=== PATIENT | male | born 1930 | race Hispanic/Latino ===

== ENCOUNTER 2017-02-12 12:43 | Inpatient (IN) | payer MEDICARE, BC ==
[2017-02-12 12:43] VITALS: BMI 29.9
--- NOTE | 2017-02-12 13:12 | ED PDOC ---
Arrival/HPI - General Chief Complaint: Medical Clearance Time Seen by Provider: 02/12/17 13:06 Historian: Patient, Family (Daughter, son) - History of Present Illness Narrative History of Present Illness (Text): 02/12/17 13:08 86 year old male, whose past medical history includes CAD, CABG x6, atrial fibrillation, hypertension, diabetes, and chronic kidney disease, who presents to the Emergency department accompanied by daughter for light-headedness prior to arrival. Patient states he began feeling light-headed and dizziness with tingling to his jaw earlier today while at home. Patient denies any chest pain, shoulder pain, shortness of breath, nausea, vomiting, or any other complaints. Daughter states she checked patient's heart rate while at home, noted it was 49 bpm. Time/Duration: Other (today) Symptom Onset: Gradual Symptom Course: Unchanged Activities at Onset: Rest, Light Context: Home Past Medical History - Provider Review Nursing Documentation Reviewed: Yes - Infectious Disease Hx of Infectious Diseases: None - Tetanus Immunization Tetanus Immunization: Up to Date - Cardiac Hx Hypertension: Yes Hx Pacemaker: No - Pulmonary Hx Chronic Obstructive Pulmonary Disease (COPD): Yes - Neurological Hx Paralysis: No - Endocrine/Metabolic Hx Diabetes Mellitus Type 2: Yes - Hematological/Oncological Hx Blood Transfusions: No Hx Blood Transfusion Reaction: No - Musculoskeletal/Rheumatological Hx Falls: No - Genitourinary/Gynecological Other/Comment: TURP - Psychiatric Hx Depression: No Hx Substance Use: No - Surgical History Hx Coronary Stent: Yes - Anesthesia Hx Anesthesia Reactions: No Hx Malignant Hyperthermia: No - Suicidal Assessment Feels Threatened In Home Enviroment: No Family/Social History - Physician Review Nursing Documentation Reviewed: Yes Family/Social History: Unknown Family HX Smoking Status: Former Smoker Hx Alcohol Use: No Hx Substance Use: No Hx Substance Use Treatment: No Allergies/Home Meds Allergies/Adverse Reactions: Allergies pentazocine Allergy (Verified 02/12/17 13:02) RASH Home Medications: Home Meds Medication Instructions Recorded Confirmed Omeprazole [PrilOSEC] 40 mg PO BID 11/07/13 02/12/17 Albuterol Sulfate [Proair Hfa] 1 puff INH PRN PRN 02/12/17 02/12/17 Aspirin [Ecotrin] 81 mg PO DAILY 02/12/17 02/12/17 Gabapentin [Neurontin] 100 mg PO BID 02/12/17 02/12/17 Hctz 12.5 12.5 mg PO MWF 02/12/17 02/12/17 Ranolazine [Ranexa] 500 mg PO BID 02/12/17 02/12/17 Tiotropium [Spiriva] 1 puff NEB DAILY 02/12/17 02/12/17 Vit B12 Daily 1 tab PO DAILY 02/12/17 02/12/17 metFORMIN [glucOPHAGE] 500 mg PO BID 02/12/17 02/12/17 Review of Systems - Physician Review All systems were reviewed & negative as marked: Yes - Review of Systems Constitutional: Normal. absent: Fevers Eyes: Normal ENT: Normal Respiratory: Normal. absent: SOB Cardiovascular: absent: Chest Pain Gastrointestinal: Normal. absent: Abdominal Pain, Diarrhea, Nausea, Vomiting Musculoskeletal: Normal. absent: Arthralgias, Back Pain, Neck Pain Neurological: Dizziness, Other (+light-headedness) Physical Exam - Physical Exam Narrative Physical Exam (Text): Constitutional: No acute distress. Head: Normocephalic. Atraumatic. Eyes: PERRL. ENT: Moist mucous membranes. Neck: Supple. Cardiovascular: Bradycardic. Chest: No tenderness. Respiratory: Clear to auscultation bilaterally. GI: Soft. Nontender. Nondistended. Back: No CVA tenderness. Musculoskeletal: No tenderness or swelling of extremities. Skin: No rash. Neurologic: Alert, no focal deficit. Vital Signs Reviewed: Yes Vital Signs Temp Pulse Resp BP Pulse Ox 02/12/17 16:01 36 L 17 155/77 H 02/12/17 13:37 32 L 131/55 L 02/12/17 13:06 97.6 F 38 L 20 157/84 H 98 Temperature: Afebrile Blood Pressure: Normal Pulse: Bradycardic Respiratory Rate: Normal Appearance: Positive for: Well-Appearing, Non-Toxic, Comfortable Pain Distress: None Mental Status: Positive for: Alert and Oriented X 3 Medical Decision Making ED Course and Treatment: 02/12/17 13:08 Impression: 86 year old male complaining of dizziness/light-headedness and jaw tingling. Plan: -- EKG -- Chest X-ray -- Labs, cardiac enzymes -- Reassess and disposition Prior Visits: Notes and results from previous visits were reviewed. Patient was last seen in the Emergency department on Progress Notes: Reviewed EKG, ventricular rate at [address] elevations. RBBB. Compared to previous EKG in 2013, which showed sinus rhythm with 1st degree AV block. Pt seen on arrival, noted to be bradycardic in 40s/30s. Paged Dr[address] Richard. 02/12/17 13:[address] Richard, national sales executive, who is aware and agrees with plan. Recommends pt be started on Dopamine and hold beta blockers. Pacer pads placed. Dr. Mccracken accepts patient to his service. Patient accepted to ICU. - Lab Interpretations Lab Results: 02/12/17 13:00 02/12/17 13:00 Lab Results 02/12/17 14:00: Blood Type Confirm O POSITIVE 02/12/17 13:25: Blood Type O POSITIVE, Antibody Screen Negative, BBK History Checked No verified bt 02/12/17 13:00: Sodium 140, Potassium 4.5, Chloride 105, Carbon Dioxide 23, Anion Gap 17, BUN 28 H, Creatinine 1.3, Est GFR ( Amer) > 60, Est GFR ( Non-Af Amer) 52, Random Glucose 147 H, Calcium 9.0, Total Bilirubin 0.7, AST 28 , ALT 28, Alkaline Phosphatase 58, Total Creatine Kinase 147, Troponin I < 0.01 , Total Protein 6.6, Albumin 3.8, Globulin 2.8, Albumin/Globulin Ratio 1.4 02/12/17 13:00: PT 11.4, INR 1.06, APTT 28.8 02/12/17 13:00: WBC 6.3, RBC 4.23, Hgb 13.1 L, Hct 38.6 L, MCV 91.3, MCH 31.0, MCHC 33.9, RDW 14.6 H, Plt Count 147, MPV 10.1, Gran % 69.6 H, Lymph % (Auto) 20.5 L, [place] % (Auto) 8.3 H, Eos % (Auto) 1.3 L, Baso % (Auto) 0.3, Gran # 4.35 , Lymph # 1.3, [place] # 0.5, Eos # 0.1, Baso # 0.02 I have reviewed the lab results: Yes - RAD Interpretation Radiology Orders: 02/12/17 13:14 CHEST PORTABLE [RAD] Stat - EKG Interpretation Interpreted by ED Physician: Yes Type: 12 lead EKG - Medication Orders Current Medication Orders: Dopamine HCl/Dextrose (Dopamine 400mg/250ml D5w) 400 mg in 250 mls @ 9.82 mls/ hr IV .Q24H PRN; Protocol; 2.5 MCG/KG/MIN PRN Reason: TITRATE PER MD ORDER Last Admin: 02/12/17 16:00 Dose: 5 mcg/kg/min, 19.646 mls/hr Discontinued Medications Dopamine HCl/Dextrose (Dopamine 400mg/250ml D5w) Confirm Administered Dose 400 mg in 250 mls @ ud IV .STK-MED ONE Stop: 02/12/17 13:23 Last Admin: 02/12/17 13:37 Dose: 2.5 mg - Scribe Statement The provider has reviewed the documentation as recorded by the Mgibchristine Boss All medical record entries made by the Mgibchristine were at my direction and personally dictated by me. I have reviewed the chart and agree that the record accurately reflects my personal performance of the history, physical exam, medical decision making, and the department course for this patient. I have also personally directed, reviewed, and agree with the discharge instructions and disposition. Disposition/Present on Arrival - Present on Arrival Any Indicators Present on Arrival: No History of DVT/PE: No History of Uncontrolled Diabetes: No Urinary Catheter: No History of Decub. Ulcer: No History Surgical Site Infection Following: None - Disposition Have Diagnosis and Disposition been Completed?: Yes Diagnosis: Symptomatic bradycardia Disposition: HOSPITALIZED Disposition Time: 13:55 Patient Plan: Admission, ICU Condition: GUARDED
[2017-02-12] MEDS ORDERED: DOPamine 400mg/250ml D5W 400 MG/250 ML BAG IV ONE (13:22)
[2017-02-12 13:27] LABS: BASO # 0.02 K/mm3 (0.0-2.0); BASO % 0.3 % (0.0-3.0); EOS # 0.1 (0.0-0.7); EOS % 1.3 % (1.5-5.0); GRAN # 4.35 (1.4-6.5); GRAN % 69.6 % (50.0-68.0); HEMOGLOBIN 13.1 gm/dL (14.0-18.0); LYMPH # 1.3 (1.2-3.4); LYMPH % 20.5 % (22.0-35.0); MEAN CELL VOLUME 91.3 fL (80.0-105.0); MEAN CORPUSCULAR HGB CONC 33.9 g/dl (31.0-37.0); MEAN PLATELET VOLUME 10.1 fl (7.0-11.0); MONO # 0.5 (0.1-0.6); MONO % 8.3 % (1.0-6.0); PLATELET COUNT 147 10^3/uL (120.0-450.0); RBC 4.23 10^6/uL (3.5-6.1); RED CELL DISTRIBUTION WIDTH 14.6 % (11.5-14.5); WHITE BLOOD COUNT 6.3 10^3/ul (4.5-11.0)
[2017-02-12] MEDS: DOPamine 400mg/250ml D5W 400 MG/250 ML BAG IV PRN ×2 (13:37→16:00)
[2017-02-12 13:39] LABS: ALB/GLOB RATIO 1.4 (1.1-1.8); ALBUMIN 3.8 g/dL (3.0-4.8); ALT/SGPT 28 U/L (7-56); AST/SGOT 28 U/L (15-59); BLOOD UREA NITROGEN 28 mg/dL (7-21); GFR AFRICAN-AMERICAN > 60; GFR NON-AFRICAN AMERICAN 52; INR 1.06 (0.93-1.08); PARTIAL THROMBOPLASTIN TIME 28.8 Seconds (23.7-30.8); PROTHROMBIN TIME 11.4 Seconds (9.9-11.8)
[2017-02-12 13:54] LABS: TROPONIN I < 0.01 ng/mL
--- NOTE | 2017-02-12 14:58 | RAD ---
HISTORY: dizziness COMPARISON: 08/13/2016 FINDINGS: LUNGS: No active pulmonary disease. PLEURA: No significant pleural effusion identified, no pneumothorax apparent. CARDIOVASCULAR: Moderate cardiomegaly. OSSEOUS STRUCTURES: Sternal wires VISUALIZED UPPER ABDOMEN: Normal. OTHER FINDINGS: None. IMPRESSION: No active disease.
--- NOTE | 2017-02-12 15:23 | CARD ---
APPROVED REPORT EKG Measurement Heart [id number] <Conclusion> Atrial Flutter Right bundle branch block Left anterior fascicular block Bifascicular block STTW changes c/w ischemia Electrical artifact present
--- NOTE | 2017-02-12 17:48 | CP.PCM.CON ---
History of Present Illness - History of Present Illness History of Present Illness: Reason for Consult:.... Bradicardia ( A flutter with Varable Block and Ventricular escape) 86 em[place] old male with PMhx of CAD S/o CABG December 2004 times 5 vessel,HTN, T2DM came to EF with C/o uneasiness ( dizzyness) found to be bradmitzirdia HR30's denies Chest pain, SOB. PMHx CAD, CABG 12/2004 times % vessel S/p CAth.. 01/2007.. [place] triple Vessel CAD patent MCKEON to LAD, Seq SVG to D1,OM1 and LPDA, SVG to Ramus has 70% stenosis not suitable for PCI. Preseved LV FX....>> Medical treatment T2 DM HTN. Hyperlipidemia PAF , S/p TIFFANY Cardioversion in 12/2011 Recent Cardiac W/u ECHO 01/2016 LVEF-60-65% Dilated LA/RA/RVModerate AR Moderate TR/PI Mild MR RVSP-55 mmof Hg. Stress test 03/2015... Negative for Ischemia. EF-54% Review of Systems - Review of Systems Systems not reviewed;Unavailable: Acuity of Condition - Constitutional Constitutional: As Per HPI - EENT Eyes: As Per HPI - Cardiovascular Cardiovascular: As Per HPI, Lightheadedness Additional comments: Dizzyness and unstady gait - Respiratory Respiratory: As Per HPI - Gastrointestinal Gastrointestinal: As Per HPI - Reproductive: Male Reproductive:Male: As Per HPI - Musculoskeletal Musculoskeletal: As Per HPI - Integumentary Integumentary: As Per HPI - Neurological Neurological: Dizziness - Psychiatric Psychiatric: As Per HPI - Endocrine Endocrine: As Per HPI Past Patient History - Infectious Disease Hx of Infectious Diseases: None - Tetanus Immunizations Tetanus Immunization: Up to Date - Past Social History Smoking Status: Former Smoker - CARDIAC Hx Hypertension: Yes Hx Pacemaker: No - PULMONARY Hx Chronic Obstructive Pulmonary Disease (COPD): Yes - NEUROLOGICAL Hx Paralysis: No - ENDOCRINE/METABOLIC Hx Diabetes Mellitus Type 2: Yes - HEMATOLOGICAL/ONCOLOGICAL Hx Blood Transfusions: No Hx Blood Transfusion Reaction: No - MUSCULOSKELETAL/RHEUMATOLOGICAL Hx Falls: No - GENITOURINARY/GYNECOLOGICAL Other/Comment: TURP - PSYCHIATRIC Hx Depression: No Hx Substance Use: No - SURGICAL HISTORY Hx Coronary Stent: Yes - ANESTHESIA Hx Anesthesia Reactions: No Hx Malignant Hyperthermia: No Meds Allergies/Adverse Reactions: Allergies Allergy/AdvReac Type Severity Reaction Status Date / Time pentazocine Allergy RASH Verified 02/12/17 13:02 - Medications Medications: Current Medications Dopamine HCl/Dextrose (Dopamine 400mg/250ml D5w) 400 mg in 250 mls @ 9.82 mls/ hr IV .Q24H PRN; Protocol; 2.5 MCG/KG/MIN PRN Reason: TITRATE PER MD ORDER Last Admin: 02/12/17 16:00 Dose: 5 mcg/kg/min, 19.646 mls/hr Physical Exam - Head Exam Head Exam: ATRAUMATIC - Eye Exam Eye Exam: Conjunctival injection - ENT Exam ENT Exam: Mucous Membranes Dry - Neck Exam Neck exam: Positive for: Full Rom - Respiratory Exam Respiratory Exam: Accessory Muscle Use - Cardiovascular Exam Cardiovascular Exam: Bradycardia - GI/Abdominal Exam GI & Abdominal Exam: Soft - Rectal Exam Rectal Exam: Deferred - Extremities Exam Extremities exam: Positive for: full ROM Results - Vital Signs Recent Vital Signs: Last Vital Signs Temp 97.6 F 02/12/17 13:06 Pulse 56 L 02/12/17 17:29 Resp 19 02/12/17 17:29 BP 161/81 H 02/12/17 17:29 Pulse Ox 94 L 02/12/17 17:29 - Labs Result Diagrams: 02/12/17 13:00 02/12/17 13:00 Assessment & Plan - Assessment and Plan (Free Text) Assessment: 86 year old male with CAG, admitted with bradicardia A flutter with Ventricular escape rate30"s, hold good BP A flutter with variable block, and Ventricular Escape Rate 30"s Pt had David meehan in morning CAD, CABG. 12/2004 Negative Stress test in 03/2015 Hx of Afib once in 2011, S/p TIFFANY cardioversion COPD HTN Hyperlipidemia Plan: Low dose Dopamine to wear effect of Beta blockade lovenox hydrallazine or non rate limiting Ca Channel bloker Possible PPM if heart rate does not improve possible PPM on Wednesday Spoke to Family and pt. - Date & Time Date: 02/12/17 Time: 03:30
[2017-02-12] MEDS ORDERED: Albuterol HFA 90 mcg/actuation (8 g) INH PRN (17:49)
[2017-02-12] MEDS ORDERED: DOPamine 400mg/250ml D5W 400 MG/250 ML BAG IV PRN ×2 (17:50→17:59)
--- NOTE | 2017-02-12 17:53 | CP.PCM.CON ---
<Iraida Shah - Last Filed: 02/12/17 18:01> History of Present Illness - History of Present Illness History of Present Illness: PGY-1 ICU consult note 86 yo male with PMH of CAD, CABG, A. fib, HTN, DM, COPD, and CKD presented to ED with dizziness. Patient states that over the past week he was feeling unsteady and general weakness. He states that this morning he began to feel dizzy and came to ED. He also reports jaw tingling but denies chest pain. He denies SOB, fever, chills, n/v/d/c. PMH: CAD, CABG, A. fib, HTN, DM, COPD, and CKD PSH: CABG SH: former smoker, deneis current ETOH use, denies illicit drug use allergy: pentazocine Review of Systems - Constitutional Constitutional: Fatigue. absent: Chills, Fever, Headache - EENT Eyes: absent: Blurred Vision Nose/Mouth/Throat: absent: Nasal Congestion, Nasal Discharge, Sore Throat - Cardiovascular Cardiovascular: Lightheadedness, Slow Heart Rate. absent: Chest Pain, Diaphoresis, Palpitations - Respiratory Respiratory: absent: Cough, Dyspnea, Hemoptysis, Dyspnea on Exertion - Gastrointestinal Gastrointestinal: absent: Abdominal Pain, Constipation, Diarrhea, Nausea, Vomiting - Genitourinary Genitourinary: absent: Change in Urinary Stream, Difficulty Urinating - Musculoskeletal Musculoskeletal: absent: Arthralgias, Back Pain, Muscle Weakness, Myalgias - Integumentary Integumentary: absent: Rash, Sores, Swelling - Neurological Neurological: Dizziness. absent: Confusion, Headaches, Loss of Vision - Hematologic/Lymphatic Hematologic: absent: Easy Bleeding, Easy Bruising Past Patient History - Infectious Disease Hx of Infectious Diseases: None - Tetanus Immunizations Tetanus Immunization: Up to Date - Past Social History Smoking Status: Former Smoker - CARDIAC Hx Hypertension: Yes Hx Pacemaker: No - PULMONARY Hx Chronic Obstructive Pulmonary Disease (COPD): Yes - NEUROLOGICAL Hx Paralysis: No - ENDOCRINE/METABOLIC Hx Diabetes Mellitus Type 2: Yes - HEMATOLOGICAL/ONCOLOGICAL Hx Blood Transfusions: No Hx Blood Transfusion Reaction: No - MUSCULOSKELETAL/RHEUMATOLOGICAL Hx Falls: No - GENITOURINARY/GYNECOLOGICAL Other/Comment: TURP - PSYCHIATRIC Hx Depression: No Hx Substance Use: No - SURGICAL HISTORY Hx Coronary Stent: Yes - ANESTHESIA Hx Anesthesia Reactions: No Hx Malignant Hyperthermia: No Meds Allergies/Adverse Reactions: Allergies Allergy/AdvReac Type Severity Reaction Status Date / Time pentazocine Allergy RASH Verified 02/12/17 13:02 - Medications Medications: Current Medications Albuterol (Ventolin Hfa 90 Mcg/Actuation (8 G)) 1 puff INH PRN PRN PRN Reason: Shortness of Breath Aspirin (Ecotrin) 81 mg PO DAILY ANAHY Gabapentin (Neurontin) 100 mg PO BID ANAHY PRN Reason: Protocol Dopamine HCl/Dextrose (Dopamine 400mg/250ml D5w) 400 mg in 250 mls @ 9.82 mls/ hr IV .Q24H PRN; Protocol; 2.5 MCG/KG/MIN PRN Reason: TITRATE PER MD ORDER Last Admin: 02/12/17 16:00 Dose: 5 mcg/kg/min, 19.646 mls/hr Metformin HCl (Glucophage) 500 mg PO BID ANAHY Non-Formulary Medication (Hctz 12.5) 12.5 mg PO MWF ANAHY Non-Formulary Medication (Ranolazine [Ranexa]) 500 mg PO BID ANAHY Physical Exam - Constitutional Appears: Well, No Acute Distress - Head Exam Head Exam: ATRAUMATIC, NORMOCEPHALIC - Eye Exam Eye Exam: Normal appearance, PERRL - ENT Exam ENT Exam: Mucous Membranes Moist - Respiratory Exam Respiratory Exam: Clear to Auscultation Bilateral, NORMAL BREATHING PATTERN. absent: Chest Wall Tenderness, Rales, Rhonchi, Wheezes, Respiratory Distress - Cardiovascular Exam Cardiovascular Exam: Bradycardia, Irregular Rhythm - GI/Abdominal Exam GI & Abdominal Exam: Normal Bowel Sounds, Soft. absent: Distended, Firm, Guarding - Extremities Exam Extremities exam: Positive for: normal inspection. Negative for: pedal edema - Neurological Exam Neurological exam: Alert, Oriented x3 Results - Vital Signs Recent Vital Signs: Last Vital Signs Temp 97.6 F 02/12/17 13:06 Pulse 56 L 02/12/17 17:29 Resp 19 02/12/17 17:29 BP 161/81 H 02/12/17 17:29 Pulse Ox 94 L 02/12/17 17:29 - Labs Result Diagrams: 02/12/17 13:00 02/12/17 13:00 Assessment & Plan - Assessment and Plan (Free Text) Assessment: 86 yo male with PMH of CAD, CABG, A. fib, HTN, DM, COPD, and CKD presented with bradycardia, a. flutter, variable block. Plan: Neuro: Patient is alert and oriented cardiovascular: pt is currently on dopamine drip per cardiology. EKG showed a. flutter with variable block. Trop neg x1. heart rate has improved. Cardiology following. cont asa, Hctz, start amlodipine, lovenox, hydralazine prn. Echo ordered. maintain MAP>65. SCDs for DVT prophalaxis. pulm: Patient is Saterating well. Maintain SaO2>90%. Start albuterol renal: stable, monitor electrolytes, will replace as needed. cont to monitor. ID: Afebrile without leukocytosis. Continue to monitor. <Israel Lopez - Last Filed: 02/12/17 18:31> Meds - Medications Medications: Current Medications Albuterol Sulfate (Albuterol 0.083% Inhal Ros (2.5 Mg/3 Ml) Ud) 2.5 mg IH [id number] PRN PRN Reason: Shortness of Breath Amlodipine Besylate (Norvasc) 10 mg PO DAILY [facility] Aspirin (Ecotrin) 81 mg PO DAILY [facility] Enoxaparin Sodium (Lovenox) 100 mg SC Q12H ANAHY PRN Reason: Protocol Stop: 02/14/17 10:00 Gabapentin (Neurontin) 100 mg PO BID [facility] PRN Reason: Protocol Hydralazine HCl (Apresoline) 10 mg PO QID PRN PRN Reason: for SBP>170 and Diastolic>100 Hydrochlorothiazide (Microzide) 12.5 mg PO MoWeFr@1000 [facility] Dobutamine HCl/Dextrose (Dobutamine/Dextrose 5% 500mg/250ml) 500 mg in 250 mls @ 13.948 mls/hr IV .[id number] PRN; Protocol; 5 MCG/KG/MIN PRN Reason: TITRATE PER PROTOCOL Metformin HCl (Glucophage) 500 mg PO BID [facility] Non-Formulary Medication (Ranolazine [Ranexa]) 500 mg PO BID [facility] Results - Vital Signs Recent Vital Signs: Last Vital Signs Temp 98.4 F 02/12/17 17:38 Pulse 58 L 02/12/17 18:20 Resp 14 02/12/17 18:20 BP 173/83 H 02/12/17 18:04 Pulse Ox 96 02/12/17 18:20 - Labs Result Diagrams: 02/12/17 13:00 02/12/17 13:00 Attending/Attestation - Attestation I have personally seen and examined this patient.: Yes I have fully participated in the care of the patient.: Yes I have reviewed all pertinent clinical information: Yes Notes (Text): 02/12/17 18:28 86 yo male presented with symptomatic bradycardia secondary to bb overdose. BB stopped, dobutrex started, cardiology consult obtained. BP improved. Will observe, if still aflutter with variable AV block and escaping ventricular rhtyhm-->may consider PPM, but will defer that to cardiology service. DVT/GI prophylaxis
[2017-02-12] MEDS ORDERED: Albuterol 0.083% Inhal Sol (2.5 mg/3 mL) UD IH PRN (17:57)
[2017-02-12] MEDS ORDERED: Non Formulary Medication (Ranolazine [Ranexa] 500 MG) PO SCH (18:00)
[2017-02-12] MEDS ORDERED: Enoxaparin 100 mg Syringe SC SCH (18:00)
[2017-02-12] MEDS ORDERED: DOBUTamine 500mg/250ml D5W 500 MG/250 ML BAG ONE (18:12)
[2017-02-12] MEDS ORDERED: DOBUTamine 500mg/250ml D5W 500 MG/250 ML BAG IV PRN (18:23)
[2017-02-12] MEDS: Enoxaparin 100 mg Syringe SC SCH (21:56)
[2017-02-12] MEDS ORDERED: Magnesium Hydroxide Susp 30 ml UD PO ONE (23:56)
[2017-02-13] MEDS: Morphine 2 mg/ml ISec IVP PRN ×2 (00:30→06:25)
[2017-02-13] MEDS: Enoxaparin 100 mg Syringe SC SCH ×2 (05:32→17:15)
[2017-02-13 06:24] LABS: BASO # 0.02 K/mm3 (0.0-2.0); BASO % 0.3 % (0.0-3.0); EOS # 0.1 (0.0-0.7); GRAN # 4.44 (1.4-6.5); GRAN % 73.5 % (50.0-68.0); HEMOGLOBIN 13.2 gm/dL (14.0-18.0); LYMPH % 17.1 % (22.0-35.0); MEAN CELL VOLUME 90.9 fL (80.0-105.0); MEAN CORPUSCULAR HEMOGLOBIN 30.8 pg (25.0-35.0); MEAN CORPUSCULAR HGB CONC 33.8 g/dl (31.0-37.0); MEAN PLATELET VOLUME 9.9 fl (7.0-11.0); MONO # 0.5 (0.1-0.6); MONO % 8.1 % (1.0-6.0); PLATELET COUNT 124 10^3/uL (120.0-450.0); RBC 4.29 10^6/uL (3.5-6.1); RED CELL DISTRIBUTION WIDTH 14.5 % (11.5-14.5)
[2017-02-13 06:27] LABS: ALB/GLOB RATIO 1.4 (1.1-1.8); ALBUMIN 3.8 g/dL (3.0-4.8); CALCIUM 9.2 mg/dL (8.4-10.5); MAGNESIUM 1.8 mg/dL (1.7-2.2)
[2017-02-13 07:04] LABS: INR 1.08 (0.93-1.08); PARTIAL THROMBOPLASTIN TIME 33.4 Seconds (23.7-30.8); PROTHROMBIN TIME 11.7 Seconds (9.9-11.8)
--- NOTE | 2017-02-13 08:45 | CP.PCM.HP ---
History of Present Illness - History of Present Illness History of Present Illness: Pt with Hx of CAD, CABG, A Fib, DM-2, COPD is coming to the hospital for dizziness and was found to have bradycardia. No CP/SOB/N/V/. he was admitted to the hospital for evaluation. Present on Admission - Present on Admission Any Indicators Present on Admission: No Review of Systems - Review of Systems All systems: reviewed and no additional remarkable complaints except - Constitutional Constitutional: absent: Headache, Night Sweats - EENT Eyes: absent: Diplopia, Exophthalmos, Photophobia, Loss of Vision - Cardiovascular Cardiovascular: Lightheadedness, Slow Heart Rate. absent: Chest Pain with Activity, Claudication, Edema, Irregular Heart Rhythm, Leg Edema, Syncope - Respiratory Respiratory: absent: Snoring, Pain on Inspiration, Chest Congestion - Gastrointestinal Gastrointestinal: absent: Abdominal Pain, Dyspepsia, Dysphagia - Musculoskeletal Musculoskeletal: absent: Limited Range of Motion, Muscle Cramps, Myalgias - Integumentary Integumentary: absent: Furuncle, New Lesions, Pruritus, Rash - Neurological Neurological: Dizziness. absent: Abnormal Speech, Disequilibrium, Numbness, Sensory Deficit Past Patient History - Infectious Disease Hx of Infectious Diseases: None - Tetanus Immunizations Tetanus Immunization: Up to Date - Past Social History Smoking Status: Former Smoker - CARDIAC Hx Hypertension: Yes Hx Pacemaker: No - PULMONARY Hx Chronic Obstructive Pulmonary Disease (COPD): Yes - NEUROLOGICAL Hx Paralysis: No - HEENT Hx HEENT Problems: No - RENAL Hx Chronic Kidney Disease: Yes - ENDOCRINE/METABOLIC Hx Diabetes Mellitus Type 2: Yes - HEMATOLOGICAL/ONCOLOGICAL Hx Blood Transfusions: No Hx Blood Transfusion Reaction: No - INTEGUMENTARY Hx Dermatological Problems: No - MUSCULOSKELETAL/RHEUMATOLOGICAL Hx Falls: No - GASTROINTESTINAL Hx Gastrointestinal Disorders: No - GENITOURINARY/GYNECOLOGICAL Other/Comment: TURP - PSYCHIATRIC Hx Depression: No Hx Substance Use: No - SURGICAL HISTORY Hx Coronary Stent: Yes - ANESTHESIA Hx Anesthesia Reactions: No Hx Malignant Hyperthermia: No Meds Allergies/Adverse Reactions: Allergies Allergy/AdvReac Type Severity Reaction Status Date / Time pentazocine Allergy RASH Verified 02/12/17 13:02 Physical Exam - Constitutional Appears: Well - Head Exam Head Exam: ATRAUMATIC, NORMAL INSPECTION, NORMOCEPHALIC - Eye Exam Eye Exam: EOMI, Normal appearance, PERRL - ENT Exam ENT Exam: Mucous Membranes Moist, Normal Exam - Respiratory Exam Respiratory Exam: Clear to Auscultation Bilateral, NORMAL BREATHING PATTERN - Cardiovascular Exam Cardiovascular Exam: REGULAR RHYTHM, RRR, +S1, +S2 - GI/Abdominal Exam GI & Abdominal Exam: Normal Bowel Sounds, Soft. absent: Hypoactive Bowel Sounds , Mass, Pulsatile Mass, Tenderness - Rectal Exam Rectal Exam: NORMAL INSPECTION - Neurological Exam Neurological exam: Alert, CN II-XII Intact, Normal Gait, Oriented x3, Reflexes Normal - Psychiatric Exam Psychiatric exam: Normal Affect, Normal Mood - Skin Skin Exam: Dry, Intact, Normal Color, Warm Results - Vital Signs Recent Vital Signs: Last Vital Signs Temp 97.8 F 02/13/17 05:30 Pulse 47 L 02/13/17 07:30 Resp 19 02/13/17 07:30 BP 157/74 H 02/13/17 07:30 Pulse Ox 94 L 02/13/17 07:30 - Labs Result Diagrams: 02/13/17 05:30 02/13/17 05:30 Labs: Laboratory Results - last 24 hr 02/13/17 02/13/17 02/13/17 05:30 05:30 05:30 WBC 6.0 RBC 4.29 Hgb 13.2 L Hct 39.0 L MCV 90.9 MCH 30.8 MCHC 33.8 RDW 14.5 Plt Count 124 MPV 9.9 Gran % 73.5 H Lymph % (Auto) 17.1 L [place] % (Auto) 8.1 H Eos % (Auto) 1.0 L Baso % (Auto) 0.3 Gran # 4.44 Lymph # 1.0 L [place] # 0.5 Eos # 0.1 Baso # 0.02 PT 11.7 INR 1.08 APTT 33.4 H Sodium 140 Potassium 4.4 Chloride 104 Carbon Dioxide 27 Anion Gap 13 BUN 26 H Creatinine 1.4 Est GFR ( Amer) 58 Est GFR (Non-Af Amer) 48 Random Glucose 125 H Calcium 9.2 Phosphorus 4.0 Magnesium 1.8 Total Bilirubin 0.9 AST 25 ALT 28 Alkaline Phosphatase 57 Total Protein 6.5 Albumin 3.8 Globulin 2.7 Albumin/Globulin Ratio 1.4 Triglycerides 184 H Cholesterol 170 LDL Cholesterol Direct 133 H HDL Cholesterol 29 TSH 3rd Generation 02/13/17 05:30 WBC RBC Hgb Hct MCV MCH MCHC RDW Plt Count MPV Gran % Lymph % (Auto) [place] % (Auto) Eos % (Auto) Baso % (Auto) Gran # Lymph # [place] # Eos # Baso # PT INR APTT Sodium Potassium Chloride Carbon Dioxide Anion Gap BUN Creatinine Est GFR ( Amer) Est GFR (Non-Af Amer) Random Glucose Calcium Phosphorus Magnesium Total Bilirubin AST ALT Alkaline Phosphatase Total Protein Albumin Globulin Albumin/Globulin Ratio Triglycerides Cholesterol LDL Cholesterol Direct HDL Cholesterol TSH 3rd Generation 2.77 Assessment & Plan - Assessment and Plan (Free Text) Assessment: Dizziness secondary to bradycardia CAD s/p CABG HTN DM-2 COPD Dyslipidemia Plan: Pt on Dobutamine. Cardio input appreciated. Pt will need a pacemaker. Pt in ICU. ISS and fs coverage. D/C Metformin. - Date & Time Date: 02/13/17 Time: 08:44
--- NOTE | 2017-02-13 10:24 | CP.CCUPN ---
CCU Subjective - Physician Review Events Since Last Encounter (Free Text): 02/13/17 10:18 No acute events overnight On Dobutamine overnight although order was d/c. Not helping HR. Paced on Demand. HR 40-60. Asymptomatic. CCU Objective - Vital Signs / Intake & Output Vital Signs (Last 4 hours): Vital Signs Pulse Resp BP Pulse Ox 02/13/17 10:00 53 L 15 142/82 93 L 02/13/17 09:45 153/105 H 02/13/17 09:30 46 L 21 153/105 H 98 02/13/17 09:00 46 L 21 137/67 97 02/13/17 08:30 51 L 31 H 147/60 86 L 02/13/17 08:00 53 L 28 H 187/69 H 79 L 02/13/17 07:30 47 L 19 157/74 H 94 L 02/13/17 07:26 48 L 36 H 02/13/17 07:25 49 L 27 H 02/13/17 07:00 48 L 22 136/69 95 02/13/17 06:30 49 L 18 150/85 88 L Intake and Output (Last 8hrs): Intake & Output 02/12/17 02/13/17 02/13/17 22:59 06:59 14:59 Intake Total 430 Output Total 300 Balance 130 Weight 205 lb Intake: IV 130 Left Antecubital 130 Oral 300 Output: Urine 300 Urine, Voided 300 Other: Voiding Method Urinal Urinal # Bowel Movements 0 - Physical Exam Head: Positive for: Atraumatic, Normocephalic Pupils: Positive for: PERRL Extroacular Muscles: Positive for: EOMI Conjunctiva: Positive for: Normal Mouth: Positive for: Moist Mucous Membranes Neck: Positive for: Normal Range of Motion Respiratory/Chest: Positive for: Clear to Auscultation Abdomen: Positive for: Normal Bowel Sounds, Other (distended bladder) Genitourinary Male: Positive for: Normal External Genitalia Upper Extremity: Positive for: Normal Inspection Lower Extremity: Positive for: Normal Inspection Neurological: Positive for: GCS=15, CN II-XII Intact, Speech Normal Skin: Positive for: Dry Psychiatric: Positive for: Oriented x 3, Normal Insight - Medications Active Medications: Active Medications Generic Name Dose Route Start Last Admin Trade Name Freq PRN Reason Stop Dose Admin Albuterol Sulfate 2.5 mg 02/12/17 17:57 Albuterol 0.083% Inhal Ros (2.5 Mg/3 Ml) Ud IH [id number] PRN Shortness of Breath Amlodipine Besylate 10 mg 02/13/17 10:00 02/13/17 09:45 Norvasc PO 10 mg DAILY ANAHY Administration Aspirin 81 mg 02/13/17 10:00 02/13/17 09:46 Ecotrin PO 81 mg DAILY ANAHY Administration Enoxaparin Sodium 100 mg 02/12/17 18:00 02/13/17 05:32 Lovenox SC 02/14/17 10:00 100 mg Q12H ANAHY Administration Protocol Gabapentin 100 mg 02/12/17 18:00 02/13/17 09:46 Neurontin PO 100 mg BID [facility] Administration Protocol Hydralazine HCl 10 mg 02/12/17 17:51 Apresoline PO QID PRN for SBP>170 and Diastolic>100 Hydrochlorothiazide 12.5 mg 02/15/17 10:00 Microzide PO MoWeFr@1000 [facility] Insulin Human Regular 0 units 02/13/17 11:30 Humulin R Low SC ACHS [facility] Protocol Morphine Sulfate 2 mg 02/13/17 00:22 02/13/17 06:25 Morphine IVP 2 mg Q4H PRN Administration Pain, severe (8-10) Non-Formulary Medication 500 mg 02/12/17 18:00 02/12/17 19:17 Ranolazine [Ranexa] PO Not Given BID [facility] - Patient Studies Lab Studies: Lab Studies 02/13/17 02/13/17 02/13/17 Range/Units 05:30 05:30 05:30 WBC (4.5-11.0) 10^3/ul RBC (3.5-6.1) 10^6/uL Hgb (14.0-18.0) gm/dL Hct (42.0-52.0) % MCV (80.0-105.0) fL MCH (25.0-35.0) pg MCHC (31.0-37.0) g/dl RDW (11.5-14.5) % Plt Count (120.0-450.0) 10^3/uL MPV (7.0-11.0) fl Gran % (50.0-68.0) % Lymph % (Auto) (22.0-35.0) % [place] % (Auto) (1.0-6.0) % Eos % (Auto) (1.5-5.0) % Baso % (Auto) (0.0-3.0) % Gran # (1.4-6.5) Lymph # (1.2-3.4) [place] # (0.1-0.6) Eos # (0.0-0.7) Baso # (0.0-2.0) K/mm3 PT 11.7 (9.9-11.8) Seconds INR 1.08 (0.93-1.08) APTT 33.4 H (23.7-30.8) Seconds Sodium 140 (132-148) mmol/L Potassium 4.4 (3.6-5.0) mmol/L Chloride 104 (98-107) mmol/L Carbon Dioxide 27 (21-33) mmol/L Anion Gap 13 (10-20) BUN 26 H (7-21) mg/dL Creatinine 1.4 (0.5-1.4) mg/dL Est GFR ( Amer) 58 Est GFR (Non-Af Amer) 48 Random Glucose 125 H (70-110) mg/dL Calcium 9.2 (8.4-10.5) mg/dL Phosphorus 4.0 (2.5-4.5) mg/dL Magnesium 1.8 (1.7-2.2) mg/dL Total Bilirubin 0.9 (0.2-1.3) mg/dL AST 25 (15-59) U/L ALT 28 (7-56) U/L Alkaline Phosphatase 57 (38-133) U/L Total Protein 6.5 (5.8-8.3) g/dL Albumin 3.8 (3.0-4.8) g/dL Globulin 2.7 gm/dL Albumin/Globulin Ratio 1.4 (1.1-1.8) Triglycerides 184 H (35-160) mg/dL Cholesterol 170 (130-200) mg/dL LDL Cholesterol Direct 133 H (0-129) mg/dL HDL Cholesterol 29 (29-60) mg/dL TSH 3rd Generation 2.77 (0.46-4.68) mIU/mL 07/08/17 Range/Units 05:30 WBC 6.0 (4.5-11.0) 10^3/ul RBC 4.29 (3.5-6.1) 10^6/uL Hgb 13.2 L (14.0-18.0) gm/dL Hct 39.0 L (42.0-52.0) % MCV 90.9 (80.0-105.0) fL MCH 30.8 (25.0-35.0) pg MCHC 33.8 (31.0-37.0) g/dl RDW 14.5 (11.5-14.5) % Plt Count 124 (120.0-450.0) 10^3/uL MPV 9.9 (7.0-11.0) fl Gran % 73.5 H (50.0-68.0) % Lymph % (Auto) 17.1 L (22.0-35.0) % [place] % (Auto) 8.1 H (1.0-6.0) % Eos % (Auto) 1.0 L (1.5-5.0) % Baso % (Auto) 0.3 (0.0-3.0) % Gran # 4.44 (1.4-6.5) Lymph # 1.0 L (1.2-3.4) [place] # 0.5 (0.1-0.6) Eos # 0.1 (0.0-0.7) Baso # 0.02 (0.0-2.0) K/mm3 PT (9.9-11.8) Seconds INR (0.93-1.08) APTT (23.7-30.8) Seconds Sodium (132-148) mmol/L Potassium (3.6-5.0) mmol/L Chloride (98-107) mmol/L Carbon Dioxide (21-33) mmol/L Anion Gap (10-20) BUN (7-21) mg/dL Creatinine (0.5-1.4) mg/dL Est GFR ( Amer) Est GFR (Non-Af Amer) Random Glucose (70-110) mg/dL Calcium (8.4-10.5) mg/dL Phosphorus (2.5-4.5) mg/dL Magnesium (1.7-2.2) mg/dL Total Bilirubin (0.2-1.3) mg/dL AST (15-59) U/L ALT (7-56) U/L Alkaline Phosphatase (38-133) U/L Total Protein (5.8-8.3) g/dL Albumin (3.0-4.8) g/dL Globulin gm/dL Albumin/Globulin Ratio (1.1-1.8) Triglycerides (35-160) mg/dL Cholesterol (130-200) mg/dL LDL Cholesterol Direct (0-129) mg/dL HDL Cholesterol (29-60) mg/dL TSH 3rd Generation (0.46-4.68) mIU/mL Laboratory Results - last 24 hr 02/13/17 02/13/17 02/13/17 05:30 05:30 05:30 WBC 6.0 RBC 4.29 Hgb 13.2 L Hct 39.0 L MCV 90.9 MCH 30.8 MCHC 33.8 RDW 14.5 Plt Count 124 MPV 9.9 Gran % 73.5 H Lymph % (Auto) 17.1 L [place] % (Auto) 8.1 H Eos % (Auto) 1.0 L Baso % (Auto) 0.3 Gran # 4.44 Lymph # 1.0 L [place] # 0.5 Eos # 0.1 Baso # 0.02 PT 11.7 INR 1.08 APTT 33.4 H Sodium 140 Potassium 4.4 Chloride 104 Carbon Dioxide 27 Anion Gap 13 BUN 26 H Creatinine 1.4 Est GFR ( Amer) 58 Est GFR (Non-Af Amer) 48 Random Glucose 125 H Calcium 9.2 Phosphorus 4.0 Magnesium 1.8 Total Bilirubin 0.9 AST 25 ALT 28 Alkaline Phosphatase 57 Total Protein 6.5 Albumin 3.8 Globulin 2.7 Albumin/Globulin Ratio 1.4 Triglycerides 184 H Cholesterol 170 LDL Cholesterol Direct 133 H HDL Cholesterol 29 TSH 3rd Generation 02/13/17 05:30 WBC RBC Hgb Hct MCV MCH MCHC RDW Plt Count MPV Gran % Lymph % (Auto) [place] % (Auto) Eos % (Auto) Baso % (Auto) Gran # Lymph # [place] # Eos # Baso # PT INR APTT Sodium Potassium Chloride Carbon Dioxide Anion Gap BUN Creatinine Est GFR ( Amer) Est GFR (Non-Af Amer) Random Glucose Calcium Phosphorus Magnesium Total Bilirubin AST ALT Alkaline Phosphatase Total Protein Albumin Globulin Albumin/Globulin Ratio Triglycerides Cholesterol LDL Cholesterol Direct HDL Cholesterol TSH 3rd Generation 2.77 Review of Systems - EENT Eyes: UNREMARKABLE Ears: UNREMARKABLE Nose/Mouth/Throat: UNREMARKABLE - Cardiovascular Cardiovascular: UNREMARKABLE - Respiratory Respiratory: UNREMARKABLE - Gastrointestinal Gastrointestinal: UNREMARKABLE - Genitourinary Genitourinary: UNREMARKABLE - Reproductive: Male Reproductive:Male: UNREMARKABLE - Musculoskeletal Musculoskeletal: UNREMARKABLE - Integumentary Integumentary: UNREMARKABLE - Neurological Neurological: UNREMARKABLE - Psychiatric Psychiatric: UNREMARKABLE - Endocrine Endocrine: UNREMARKABLE - Hematologic/Lymphatic Hematologic: UNREMARKABLE Critical Care Progress Note - Ventilator Checklist Head of Bed 30 Degrees: Yes Daily Sedation Vacation: Yes PUD Prophalyxis: Yes DVT Prophylaxis: Yes - Nutrition Nutrition: Nutrition Category Date Time Status Heart Healthy Diet [DIET] Diets 02/12/17 Dinner Ordered Assessment/Plan - Assessment and Plan (Free Text) Assessment: 86 y/o M w/ Bradycardia w/ HB. Unclear if this is due to B-Mitzi dosing or intrinsic eletrical cardiac dysfunction? Currently demand paced w/ HR 40-60. Asymptomatic. Cardiology plans to wait to determine if this is medication based before placing perm pacer. No other signs of Coronary occulsion. On therapeutic anticoagulation w/ Lovenox w/ normal Renal function. Dobutamine d/c, dopamine if needed. Out of bed to Chair. BPH will need straight cath. urine retension 900cc on bladder scan. cc time 55 min
[2017-02-13] MEDS: Insulin Reg-LOW-Coverage SC SCH ×3 (12:04→21:01)
--- NOTE | 2017-02-13 13:41 | CP.PCM.PN ---
Subjective - Date & Time of Evaluation Date of Evaluation: 02/13/17 Time of Evaluation: 13:38 - Subjective Subjective: No dizziness Off dobutrix On Demand transcutaneous pacemaker Objective - Vital Signs/Intake and Output Vital Signs (last 24 hours): Temp Pulse Resp BP Pulse Ox 98.2 F 43 L 19 153/91 H 93 L 02/13/17 12:00 02/13/17 13:00 02/13/17 13:00 02/13/17 13:00 02/13/17 13:00 - Medications Medications: Current Medications Albuterol Sulfate (Albuterol 0.083% Inhal Rso (2.5 Mg/3 Ml) Ud) 2.5 mg IH [id number] PRN PRN Reason: Shortness of Breath Amlodipine Besylate (Norvasc) 10 mg PO DAILY [facility] Last Admin: 02/13/17 09:45 Dose: 10 mg Aspirin (Ecotrin) 81 mg PO DAILY [facility] Last Admin: 02/13/17 09:46 Dose: 81 mg Enoxaparin Sodium (Lovenox) 100 mg SC Q12H ANAHY PRN Reason: Protocol Stop: 02/14/17 10:00 Last Admin: 02/13/17 05:32 Dose: 100 mg Gabapentin (Neurontin) 100 mg PO BID [facility] PRN Reason: Protocol Last Admin: 02/13/17 09:46 Dose: 100 mg Hydralazine HCl (Apresoline) 10 mg PO QID PRN PRN Reason: for SBP>170 and Diastolic>100 Hydrochlorothiazide (Microzide) 12.5 mg PO MoWeFr@1000 [facility] Insulin Human Regular (Humulin R Low) 0 units SC ACHS [facility] PRN Reason: Protocol Last Admin: 02/13/17 12:04 Dose: Not Given Morphine Sulfate (Morphine) 2 mg IVP Q4H PRN PRN Reason: Pain, severe (8-10) Last Admin: 02/13/17 06:25 Dose: 2 mg Non-Formulary Medication (Ranolazine [Ranexa]) 500 mg PO BID [facility] Last Admin: 02/12/17 19:17 Dose: Not Given - Labs Labs: 02/13/17 05:30 02/13/17 05:30 PT 11.7 Seconds (9.9-11.8) 02/13/17 05:30 INR 1.08 (0.93-1.08) 02/13/17 05:30 APTT 33.4 Seconds (23.7-30.8) H 02/13/17 05:30 - Head Exam Head Exam: NORMOCEPHALIC - ENT Exam ENT Exam: Normal Exam - Neck Exam Neck Exam: Normal Inspection - Respiratory Exam Respiratory Exam: NORMAL BREATHING PATTERN - Cardiovascular Exam Cardiovascular Exam: Irregular Rhythm - GI/Abdominal Exam GI & Abdominal Exam: Soft Assessment and Plan - Assessment and Plan (Free Text) Assessment: Symptomatic Jake AFL CAD S/P CABG HTN Moderate pulmonary HTN Plan: Cont Albuterol Sulfate (Albuterol 0.083% Inhal Ros (2.5 Mg/3 Ml) Ud) 2.5 mg IH [id number] PRN PRN Reason: Shortness of Breath Amlodipine Besylate (Norvasc) 10 mg PO DAILY [facility] Last Admin: 02/13/17 09:45 Dose: 10 mg Aspirin (Ecotrin) 81 mg PO DAILY [facility] Last Admin: 02/13/17 09:46 Dose: 81 mg Enoxaparin Sodium (Lovenox) 100 mg SC Q12H ANAHY PRN Reason: Protocol Stop: 02/14/17 10:00 Last Admin: 02/13/17 05:32 Dose: 100 mg Gabapentin (Neurontin) 100 mg PO BID [facility] PRN Reason: Protocol Last Admin: 02/13/17 09:46 Dose: 100 mg Hydralazine HCl (Apresoline) 10 mg PO QID PRN PRN Reason: for SBP>170 and Diastolic>100 Hydrochlorothiazide (Microzide) 12.5 mg PO MoWeFr@1000 [facility] Insulin Human Regular (Humulin R Low) 0 units SC ACHS [facility] PRN Reason: Protocol Last Admin: 02/13/17 12:04 Dose: Not Given Morphine Sulfate (Morphine) 2 mg IVP Q4H PRN PRN Reason: Pain, severe (8-10) Last Admin: 02/13/17 06:25 Dose: 2 mg Non-Formulary Medication (Ranolazine [Ranexa]) 500 mg PO BID [facility] Last Admin: 02/12/17 19:17 Dose: Not Given For PPM on Wednesday
[2017-02-13] MEDS: RANOLAZINE 500 MG PO SCH (17:21)
[2017-02-14] MEDS: Enoxaparin 100 mg Syringe SC SCH (06:17)
[2017-02-14 06:21] LABS: BASO # 0.02 K/mm3 (0.0-2.0); BASO % 0.3 % (0.0-3.0); EOS # 0.1 (0.0-0.7); EOS % 1.4 % (1.5-5.0); GRAN # 5.09 (1.4-6.5); GRAN % 72.6 % (50.0-68.0); HEMOGLOBIN 13.4 gm/dL (14.0-18.0); LYMPH # 1.2 (1.2-3.4); LYMPH % 16.7 % (22.0-35.0); MEAN CELL VOLUME 92.2 fL (80.0-105.0); MEAN CORPUSCULAR HEMOGLOBIN 30.7 pg (25.0-35.0); MEAN CORPUSCULAR HGB CONC 33.3 g/dl (31.0-37.0); MONO # 0.6 (0.1-0.6); PLATELET COUNT 132 10^3/uL (120.0-450.0); RBC 4.37 10^6/uL (3.5-6.1); RED CELL DISTRIBUTION WIDTH 14.7 % (11.5-14.5)
[2017-02-14 06:34] LABS: ALB/GLOB RATIO 1.4 (1.1-1.8); ALBUMIN 3.7 g/dL (3.0-4.8)
[2017-02-14 06:39] LABS: INR 1.04 (0.93-1.08); PARTIAL THROMBOPLASTIN TIME 35.9 Seconds (23.7-30.8); PROTHROMBIN TIME 11.2 Seconds (9.9-11.8)
[2017-02-14] MEDS: Insulin Reg-LOW-Coverage SC SCH ×4 (08:48→21:49)
[2017-02-14] MEDS: POLYETHYLENE GLYCOL 3350 17 GM/Dose PACKET PO SCH (09:14)
[2017-02-14] MEDS: RANOLAZINE 500 MG PO SCH ×2 (09:15→17:08)
--- NOTE | 2017-02-14 11:42 | CP.CCUPN ---
CCU Subjective - Physician Review Events Since Last Encounter (Free Text): 02/14/17 11:40 No acute events overnight HR 40-60's w/ demand pacing< 50bpm. CCU Objective - Vital Signs / Intake & Output Vital Signs (Last 4 hours): Vital Signs Pulse Resp BP Pulse Ox 02/14/17 11:00 51 L 19 128/69 96 02/14/17 10:00 58 L 30 H 123/58 L 95 02/14/17 09:14 125/53 L 02/14/17 09:00 50 L 17 125/53 L 93 L 02/14/17 08:01 60 171/72 H 96 02/14/17 08:00 52 L 15 97 Intake and Output (Last 8hrs): Intake & Output 02/13/17 02/14/17 02/14/17 22:59 06:59 14:59 Intake Total 950 500 Output Total 1250 1000 Balance -300 -500 Weight 206 lb 206 lb Intake: IV 0 Left Antecubital 0 Oral 950 500 Output: Urine 1250 1000 Straight 1250 Urine, Voided 1000 Stool 0 Other: Voiding Method Urinal Urinal # Voids Urine, Voided 0 0 # Bowel Movements 1 - Physical Exam Head: Positive for: Atraumatic, Normocephalic Pupils: Positive for: PERRL Extroacular Muscles: Positive for: EOMI Conjunctiva: Positive for: Normal Mouth: Positive for: Moist Mucous Membranes Neck: Positive for: Normal Range of Motion Respiratory/Chest: Positive for: Clear to Auscultation Abdomen: Positive for: Normal Bowel Sounds, Other (distended bladder) Genitourinary Male: Positive for: Normal External Genitalia Upper Extremity: Positive for: Normal Inspection Lower Extremity: Positive for: Normal Inspection Neurological: Positive for: GCS=15, CN II-XII Intact, Speech Normal Skin: Positive for: Dry Psychiatric: Positive for: Oriented x 3, Normal Insight - Medications Active Medications: Active Medications Generic Name Dose Route Start Last Admin Trade Name Freq PRN Reason Stop Dose Admin Albuterol Sulfate 2.5 mg 02/12/17 17:57 Albuterol 0.083% Inhal Ros (2.5 Mg/3 Ml) Ud IH [id number] PRN Shortness of Breath Amlodipine Besylate 10 mg 02/13/17 10:00 02/14/17 09:14 Norvasc PO 10 mg DAILY ANAHY Administration Aspirin 81 mg 02/13/17 10:00 02/14/17 09:14 Ecotrin PO 81 mg DAILY ANAHY Administration Gabapentin 100 mg 02/12/17 18:00 02/14/17 09:13 Neurontin PO 100 mg BID [facility] Administration Protocol Hydralazine HCl 10 mg 02/12/17 17:51 Apresoline PO QID PRN for SBP>170 and Diastolic>100 Hydrochlorothiazide 12.5 mg 02/15/17 10:00 Microzide PO MoWeFr@1000 [facility] Insulin Human Regular 0 units 02/13/17 11:30 02/14/17 08:48 Humulin R Low SC Not Given ACHS [facility] Protocol Morphine Sulfate 2 mg 02/13/17 00:22 02/13/17 06:25 Morphine IVP 2 mg Q4H PRN Administration Pain, severe (8-10) Home Med- ( 500 mg 02/13/17 14:42 02/14/17 09:15 Ranolazine [Ranexa] PO 500 mg 500 Mg) BID ANAHY Administration Polyethylene Glycol 17 gm 02/14/17 10:00 02/14/17 09:14 Miralax PO 17 gm DAILY ANAHY Administration - Patient Studies Lab Studies: Microbiology Studies 02/12/17 19:12 MRSA Culture (Admit) - Final Nose MRSA NOT DETECTED Lab Studies 02/14/17 02/14/17 02/14/17 Range/Units 08:03 05:30 05:30 WBC (4.5-11.0) 10^3/ul RBC (3.5-6.1) 10^6/uL Hgb (14.0-18.0) gm/dL Hct (42.0-52.0) % MCV (80.0-105.0) fL MCH (25.0-35.0) pg MCHC (31.0-37.0) g/dl RDW (11.5-14.5) % Plt Count (120.0-450.0) 10^3/uL MPV (7.0-11.0) fl Gran % (50.0-68.0) % Lymph % (Auto) (22.0-35.0) % [place] % (Auto) (1.0-6.0) % Eos % (Auto) (1.5-5.0) % Baso % (Auto) (0.0-3.0) % Gran # (1.4-6.5) Lymph # (1.2-3.4) [place] # (0.1-0.6) Eos # (0.0-0.7) Baso # (0.0-2.0) K/mm3 PT 11.2 (9.9-11.8) Seconds INR 1.04 (0.93-1.08) APTT 35.9 H (23.7-30.8) Seconds Sodium 140 (132-148) mmol/L Potassium 4.5 (3.6-5.0) mmol/L Chloride 104 (98-107) mmol/L Carbon Dioxide 27 (21-33) mmol/L Anion Gap 14 (10-20) BUN 27 H (7-21) mg/dL Creatinine 1.4 (0.5-1.4) mg/dL Est GFR ( Amer) 58 Est GFR (Non-Af Amer) 48 POC Glucose (mg/dL) 137 H (65-110) mg/dL Random Glucose 123 H (70-110) mg/dL Hemoglobin A1c (4.2-6.5) % Calcium 9.0 (8.4-10.5) mg/dL Total Bilirubin 0.8 (0.2-1.3) mg/dL AST 18 (15-59) U/L ALT 24 (7-56) U/L Alkaline Phosphatase 56 (38-133) U/L Total Protein 6.4 (5.8-8.3) g/dL Albumin 3.7 (3.0-4.8) g/dL Globulin 2.7 gm/dL Albumin/Globulin Ratio 1.4 (1.1-1.8) 02/14/17 02/13/17 02/13/17 Range/Units 05:30 20:58 15:53 WBC 7.0 (4.5-11.0) 10^3/ul RBC 4.37 (3.5-6.1) 10^6/uL Hgb 13.4 L (14.0-18.0) gm/dL Hct 40.3 L (42.0-52.0) % MCV 92.2 (80.0-105.0) fL MCH 30.7 (25.0-35.0) pg MCHC 33.3 (31.0-37.0) g/dl RDW 14.7 H (11.5-14.5) % Plt Count 132 (120.0-450.0) 10^3/uL MPV 10.0 (7.0-11.0) fl Gran % 72.6 H (50.0-68.0) % Lymph % (Auto) 16.7 L (22.0-35.0) % [place] % (Auto) 9.0 H (1.0-6.0) % Eos % (Auto) 1.4 L (1.5-5.0) % Baso % (Auto) 0.3 (0.0-3.0) % Gran # 5.09 (1.4-6.5) Lymph # 1.2 (1.2-3.4) [place] # 0.6 (0.1-0.6) Eos # 0.1 (0.0-0.7) Baso # 0.02 (0.0-2.0) K/mm3 PT (9.9-11.8) Seconds INR (0.93-1.08) APTT (23.7-30.8) Seconds Sodium (132-148) mmol/L Potassium (3.6-5.0) mmol/L Chloride (98-107) mmol/L Carbon Dioxide (21-33) mmol/L Anion Gap (10-20) BUN (7-21) mg/dL Creatinine (0.5-1.4) mg/dL Est GFR ( Amer) Est GFR (Non-Af Amer) POC Glucose (mg/dL) 152 H 156 H (65-110) mg/dL Random Glucose (70-110) mg/dL Hemoglobin A1c (4.2-6.5) % Calcium (8.4-10.5) mg/dL Total Bilirubin (0.2-1.3) mg/dL AST (15-59) U/L ALT (7-56) U/L Alkaline Phosphatase (38-133) U/L Total Protein (5.8-8.3) g/dL Albumin (3.0-4.8) g/dL Globulin gm/dL Albumin/Globulin Ratio (1.1-1.8) 02/13/17 02/13/17 Range/Units 12:03 05:30 WBC (4.5-11.0) 10^3/ul RBC (3.5-6.1) 10^6/uL Hgb (14.0-18.0) gm/dL Hct (42.0-52.0) % MCV (80.0-105.0) fL MCH (25.0-35.0) pg MCHC (31.0-37.0) g/dl RDW (11.5-14.5) % Plt Count (120.0-450.0) 10^3/uL MPV (7.0-11.0) fl Gran % (50.0-68.0) % Lymph % (Auto) (22.0-35.0) % [place] % (Auto) (1.0-6.0) % Eos % (Auto) (1.5-5.0) % Baso % (Auto) (0.0-3.0) % Gran # (1.4-6.5) Lymph # (1.2-3.4) [place] # (0.1-0.6) Eos # (0.0-0.7) Baso # (0.0-2.0) K/mm3 PT (9.9-11.8) Seconds INR (0.93-1.08) APTT (23.7-30.8) Seconds Sodium (132-148) mmol/L Potassium (3.6-5.0) mmol/L Chloride (98-107) mmol/L Carbon Dioxide (21-33) mmol/L Anion Gap (10-20) BUN (7-21) mg/dL Creatinine (0.5-1.4) mg/dL Est GFR ( Amer) Est GFR (Non-Af Amer) POC Glucose (mg/dL) 131 H (65-110) mg/dL Random Glucose (70-110) mg/dL Hemoglobin A1c 8.0 H (4.2-6.5) % Calcium (8.4-10.5) mg/dL Total Bilirubin (0.2-1.3) mg/dL AST (15-59) U/L ALT (7-56) U/L Alkaline Phosphatase (38-133) U/L Total Protein (5.8-8.3) g/dL Albumin (3.0-4.8) g/dL Globulin gm/dL Albumin/Globulin Ratio (1.1-1.8) Laboratory Results - last 24 hr 02/13/17 02/13/17 02/13/17 05:30 12:03 15:53 WBC RBC Hgb Hct MCV MCH MCHC RDW Plt Count MPV Gran % Lymph % (Auto) [place] % (Auto) Eos % (Auto) Baso % (Auto) Gran # Lymph # [place] # Eos # Baso # PT INR APTT Sodium Potassium Chloride Carbon Dioxide Anion Gap BUN Creatinine Est GFR ( Amer) Est GFR (Non-Af Amer) POC Glucose (mg/dL) 131 H 156 H Random Glucose Hemoglobin A1c 8.0 H Calcium Total Bilirubin AST ALT Alkaline Phosphatase Total Protein Albumin Globulin Albumin/Globulin Ratio 02/13/17 02/14/17 02/14/17 20:58 05:30 05:30 WBC 7.0 RBC 4.37 Hgb 13.4 L Hct 40.3 L MCV 92.2 MCH 30.7 MCHC 33.3 RDW 14.7 H Plt Count 132 MPV 10.0 Gran % 72.6 H Lymph % (Auto) 16.7 L [place] % (Auto) 9.0 H Eos % (Auto) 1.4 L Baso % (Auto) 0.3 Gran # 5.09 Lymph # 1.2 [place] # 0.6 Eos # 0.1 Baso # 0.02 PT 11.2 INR 1.04 APTT 35.9 H Sodium Potassium Chloride Carbon Dioxide Anion Gap BUN Creatinine Est GFR ( Amer) Est GFR (Non-Af Amer) POC Glucose (mg/dL) 152 H Random Glucose Hemoglobin A1c Calcium Total Bilirubin AST ALT Alkaline Phosphatase Total Protein Albumin Globulin Albumin/Globulin Ratio 02/14/17 02/14/17 05:30 08:03 WBC RBC Hgb Hct MCV MCH MCHC RDW Plt Count MPV Gran % Lymph % (Auto) [place] % (Auto) Eos % (Auto) Baso % (Auto) Gran # Lymph # [place] # Eos # Baso # PT INR APTT Sodium 140 Potassium 4.5 Chloride 104 Carbon Dioxide 27 Anion Gap 14 BUN 27 H Creatinine 1.4 Est GFR ( Amer) 58 Est GFR (Non-Af Amer) 48 POC Glucose (mg/dL) 137 H Random Glucose 123 H Hemoglobin A1c Calcium 9.0 Total Bilirubin 0.8 AST 18 ALT 24 Alkaline Phosphatase 56 Total Protein 6.4 Albumin 3.7 Globulin 2.7 Albumin/Globulin Ratio 1.4 Fingerstick Blood Sugar Results: 137 Critical Care Progress Note - Ventilator Checklist PUD Prophalyxis: Yes DVT Prophylaxis: Yes - Nutrition Nutrition: Nutrition Category Date Time Status Heart Healthy Diet [DIET] Diets 02/12/17 Dinner Ordered Assessment/Plan - Assessment and Plan (Free Text) Assessment: 86 y/o M w/ symptomatic bradycardia and heart block. Cardiology aware and is watching to determine if perm pacemaker is needed. Off all Dopamine and dobutamine. HR 40-60's but asymptomatic. Demand pacing with external pads currently. Awaiting cardiology plans for further intervention. All b blockers on hold. HTn controlled. dvt P Heparin sq cc time 55 min
--- NOTE | 2017-02-14 12:24 | CP.PCM.PN ---
Subjective - Date & Time of Evaluation Date of Evaluation: 02/14/17 Time of Evaluation: 12:21 - Subjective Subjective: No dizziness AFL with demand external pacemaker on monitor Objective - Vital Signs/Intake and Output Vital Signs (last 24 hours): Temp Pulse Resp BP Pulse Ox 98.6 F 51 L 19 128/69 96 02/14/17 04:00 02/14/17 11:00 02/14/17 11:00 02/14/17 11:00 02/14/17 11:00 Intake and Output: 02/14/17 02/14/17 06:59 18:59 Intake Total 500 Output Total 1000 Balance -500 - Medications Medications: Current Medications Albuterol Sulfate (Albuterol 0.083% Inhal Ros (2.5 Mg/3 Ml) Ud) 2.5 mg IH [id number] PRN PRN Reason: Shortness of Breath Amlodipine Besylate (Norvasc) 10 mg PO DAILY [facility] Last Admin: 02/14/17 09:14 Dose: 10 mg Aspirin (Ecotrin) 81 mg PO DAILY [facility] Last Admin: 02/14/17 09:14 Dose: 81 mg Gabapentin (Neurontin) 100 mg PO BID [facility] PRN Reason: Protocol Last Admin: 02/14/17 09:13 Dose: 100 mg Hydralazine HCl (Apresoline) 10 mg PO QID PRN PRN Reason: for SBP>170 and Diastolic>100 Hydrochlorothiazide (Microzide) 12.5 mg PO MoWeFr@1000 [facility] Insulin Human Regular (Humulin R Low) 0 units SC ACHS [facility] PRN Reason: Protocol Last Admin: 02/14/17 12:01 Dose: 1 units Morphine Sulfate (Morphine) 2 mg IVP Q4H PRN PRN Reason: Pain, severe (8-10) Last Admin: 02/13/17 06:25 Dose: 2 mg Home Med- ( Ranolazine [Ranexa] 500 Mg) 500 mg PO BID [facility] Last Admin: 02/14/17 09:15 Dose: 500 mg Polyethylene Glycol (Miralax) 17 gm PO DAILY [facility] Last Admin: 02/14/17 09:14 Dose: 17 gm - Labs Labs: 02/14/17 05:30 02/14/17 05:30 PT 11.2 Seconds (9.9-11.8) 02/14/17 05:30 INR 1.04 (0.93-1.08) 02/14/17 05:30 APTT 35.9 Seconds (23.7-30.8) H 02/14/17 05:30 - Head Exam Head Exam: NORMAL INSPECTION - Eye Exam Eye Exam: Normal appearance - Neck Exam Neck Exam: Normal Inspection - Cardiovascular Exam Cardiovascular Exam: Irregular Rhythm - GI/Abdominal Exam GI & Abdominal Exam: Soft - Extremities Exam Extremities Exam: Normal Inspection Assessment and Plan - Assessment and Plan (Free Text) Assessment: Symptomatic Jake AFL CAD S/P CABG HTN Moderate pulmonary HTN Plan: Cont. Albuterol Sulfate (Albuterol 0.083% Inhal Ros (2.5 Mg/3 Ml) Ud) 2.5 mg IH [id number] PRN PRN Reason: Shortness of Breath Amlodipine Besylate (Norvasc) 10 mg PO DAILY [facility] Aspirin (Ecotrin) 81 mg PO DAILY [facility] Gabapentin (Neurontin) 100 mg PO BID [facility] Hydralazine HCl (Apresoline) 10 mg PO QID PRN Hydrochlorothiazide (Microzide) 12.5 mg PO MoWeFr@1000 [facility] Insulin Human Regular (Humulin R Low) 0 units SC ACHS [facility] Morphine Sulfate (Morphine) 2 mg IVP Q4H PRN Home Med- ( Ranolazine [Ranexa] 500 Mg) 500 mg PO BID [facility] Last Admin: 02/14/17 09:15 Dose: 500 mg Polyethylene Glycol (Miralax) 17 gm PO DAILY [facility] For PPM tomorrow
--- NOTE | 2017-02-14 23:48 | CARD ---
APPROVED REPORT EXAM: Two-dimensional and M-mode echocardiogram with Doppler and color Doppler. INDICATION 2D DIMENSIONS IVSd0.8 (0.7-1.1cm)LVDd5.1 (3.9-5.9cm) PWd1.2 (0.7-1.1cm)LVDs2.6 (2.5-4.0cm) FS (%) 48.1 %LVEF (%)79.3 (>50%) M-Mode DIMENSIONS Left Atrium (MM)4.30 (2.5-4.0cm)Aortic Root4.10 (2.2-3.7cm) Aortic Cusp Exc.2.50 (1.5-2.0cm) Aortic Valve AoV Peak Vyqznmgd068.0cm/Maureen Peak GR.6mmHg Mitral Valve MV E Amrwnwin65.3cm/sMV A Udagbbym97.5cm/sE/A ratio1.2 Tricuspid Valve TR Peak [id number]/sRAP [id number] Peak Gr.44mmHg [id number] LEFT VENTRICLE The left ventricle is normal size. There is borderline to mild concentric left ventricular hypertrophy. The left ventricular function is normal.EF-60-65% There is normal LV segmental wall motion. A fib/A flutter No left ventricle thrombus noted on this study. There is no ventricular septal defect visualized. There is no left ventricular aneurysm. There is no mass noted in the left ventricle. RIGHT VENTRICLE The right ventricle is mildly to moderately dilated. There is normal right ventricular wall thickness. Systolic function is mildly reduced. ATRIA The left atrium is mildly dilated. The right atrium is mildly dilated. The interatrial septum is intact with no evidence for an atrial septal defect. AORTIC VALVE The aortic valve is thickened but opens well. There is trace aortic regurgitation. There is no aortic valvular stenosis. There is no aortic valvular vegetation. MITRAL VALVE The mitral valve is thickened but opens well. Mitral regurgitation is trace to mild. There is no mitral valve stenosis. There is no evidence of mitral valve prolapse. TRICUSPID VALVE The tricuspid valve leaflets are thickened , but open well. There is moderate tricuspid regurgitation.RVSP-54 mmof hg. There is no tricuspid valve stenosis. There is no tricuspid valve prolapse or vegetation. PULMONIC VALVE The pulmonic valve is mildly thickened. There is mild to moderate pulmonic valvular regurgitation. There is no pulmonic valvular stenosis. GREAT VESSELS The aortic root is mildly enlarged. The ascending aorta is normal in size. The pulmonary artery is normal. The IVC is normal in size and collapses >50% with inspiration. PERICARDIAL EFFUSION There is no pleural effusion. There is no pericardial effusion. <Conclusion> The left ventricle is normal size. There is borderline to mild concentric left ventricular hypertrophy. The left ventricular function is normal.EF-60-65% There is trace aortic regurgitation. Mitral regurgitation is trace to mild. There is moderate tricuspid regurgitation.RVSP-54 mmof hg. The aortic root is mildly enlarged. There is no pericardial effusion. No thrombus or vegetation noted.
[2017-02-15 05:49] LABS: BASO # 0.02 K/mm3 (0.0-2.0); BASO % 0.2 % (0.0-3.0); EOS # 0.1 (0.0-0.7); EOS % 1.4 % (1.5-5.0); GRAN # 6.87 (1.4-6.5); GRAN % 80.7 % (50.0-68.0); HEMOGLOBIN 14.2 gm/dL (14.0-18.0); LYMPH # 0.8 (1.2-3.4); LYMPH % 8.8 % (22.0-35.0); MEAN CELL VOLUME 91.3 fL (80.0-105.0); MEAN CORPUSCULAR HEMOGLOBIN 30.9 pg (25.0-35.0); MEAN CORPUSCULAR HGB CONC 33.8 g/dl (31.0-37.0); MEAN PLATELET VOLUME 9.9 fl (7.0-11.0); MONO # 0.8 (0.1-0.6); MONO % 8.9 % (1.0-6.0); PLATELET COUNT 143 10^3/uL (120.0-450.0); RED CELL DISTRIBUTION WIDTH 14.9 % (11.5-14.5); WHITE BLOOD COUNT 8.5 10^3/ul (4.5-11.0)
[2017-02-15 05:58] LABS: INR 1.01 (0.93-1.08); PARTIAL THROMBOPLASTIN TIME 31.7 Seconds (23.7-30.8); PROTHROMBIN TIME 10.9 Seconds (9.9-11.8)
[2017-02-15 06:00] LABS: ALB/GLOB RATIO 1.5 (1.1-1.8); ALBUMIN 4.1 g/dL (3.0-4.8); ALT/SGPT 25 U/L (7-56); AST/SGOT 18 U/L (15-59); BLOOD UREA NITROGEN 25 mg/dL (7-21); CALCIUM 9.5 mg/dL (8.4-10.5); GFR AFRICAN-AMERICAN > 60; GFR NON-AFRICAN AMERICAN 57
--- NOTE | 2017-02-15 07:43 | CP.PCM.PN ---
<GRISEL PEDRAZA - Last Filed: 02/15/17 10:59> Subjective - Date & Time of Evaluation Date of Evaluation: 02/15/17 Time of Evaluation: 07:35 - Subjective Subjective: PGY1 ICU Progress Note: Pt seen and examined at bedside. No acute events overnight. Denies lightheadedness, dizzines, headache, sob, cp, abdominal pain. Objective - Vital Signs/Intake and Output Vital Signs (last 24 hours): Temp Pulse Resp BP Pulse Ox 98.8 F 53 L 18 146/60 92 L 02/15/17 04:00 02/15/17 03:00 02/15/17 03:00 02/15/17 03:00 02/15/17 03:00 Intake and Output: 02/15/17 02/15/17 06:59 18:59 Intake Total 450 Output Total 700 Balance -250 - Medications Medications: Current Medications Albuterol Sulfate (Albuterol 0.083% Inhal Ros (2.5 Mg/3 Ml) Ud) 2.5 mg IH [id number] PRN PRN Reason: Shortness of Breath Amlodipine Besylate (Norvasc) 10 mg PO DAILY [facility] Last Admin: 02/14/17 09:14 Dose: 10 mg Aspirin (Ecotrin) 81 mg PO DAILY [facility] Last Admin: 02/14/17 09:14 Dose: 81 mg Gabapentin (Neurontin) 100 mg PO BID [facility] PRN Reason: Protocol Last Admin: 02/14/17 17:04 Dose: 100 mg Hydralazine HCl (Apresoline) 10 mg PO QID PRN PRN Reason: for SBP>170 and Diastolic>100 Hydrochlorothiazide (Microzide) 12.5 mg PO MoWeFr@1000 [facility] Insulin Human Regular (Humulin R Low) 0 units SC ACHS [facility] PRN Reason: Protocol Last Admin: 02/14/17 21:49 Dose: Not Given Morphine Sulfate (Morphine) 2 mg IVP Q4H PRN PRN Reason: Pain, severe (8-10) Last Admin: 02/13/17 06:25 Dose: 2 mg Home Med- ( Ranolazine [Ranexa] 500 Mg) 500 mg PO BID [facility] Last Admin: 02/14/17 17:08 Dose: 500 mg Polyethylene Glycol (Miralax) 17 gm PO DAILY [facility] Last Admin: 02/14/17 09:14 Dose: 17 gm - Labs Labs: 02/15/17 05:20 02/15/17 05:20 PT 10.9 Seconds (9.9-11.8) 02/15/17 05:20 INR 1.01 (0.93-1.08) 02/15/17 05:20 APTT 31.7 Seconds (23.7-30.8) H 02/15/17 05:20 - Constitutional Appears: Well, No Acute Distress - Head Exam Head Exam: ATRAUMATIC, NORMOCEPHALIC - Eye Exam Eye Exam: PERRL - ENT Exam ENT Exam: Mucous Membranes Moist - Respiratory Exam Respiratory Exam: Clear to Ausculation Bilateral - Cardiovascular Exam Cardiovascular Exam: Bradycardia, +S1, +S2 - GI/Abdominal Exam GI & Abdominal Exam: Normal Bowel Sounds. absent: Tenderness Additional comments: rounded, obese. - Extremities Exam Extremities Exam: absent: Calf Tenderness, Pedal Edema, Tenderness - Psychiatric Exam Psychiatric exam: Normal Mood - Skin Skin Exam: Dry, Intact, Warm Assessment and Plan - Assessment and Plan (Free Text) Assessment: 86M with PMH afib, CAD, HTN, COPD, admitted for symptomatic bradycardia 2/2 intrinsic electrical cardiac dysfunction. Initially, hospital course complicated by hypotension, off dopamine and dobutamine now, transcutaneous pacemaker placed. Awaiting permanent pacemaker placement today, as per Dr. Richard. Plan: Neuro: AAOx3. No mental status changes. Cont to monitor. Resp: On 3L NC. Saturating well. Will maintain SpO2>90%. CV: Initially, hypotensive, off dopamine and dobutamine now. Normotensive today BP 131-147/60-70. Hx of HTN. C/w Amlodipine, HCTZ, ASA 81 mg Hydralazine prn for SBP>170 and DBP >100 HR 40-50's, on transcutaneous pacemaker, will go for perm pacemaker today with Dr. Richard Cont to monitor hemodynamic status Nephro: Cont to replace electrolytes and fluid status. Heme: H/H stable, PTT 31.7, cont to monitor. ID: afebrile, no leukocytosis. Cont to monitor. GI: NPO for pacemaker placement today. Endo: Hx of DM. BG 123-142. on ISS. Maintain euglycemia. Case seen and discussed with PGY2 and attending, Dr. Lopez. Grisel Pedraza, PGY1 <Israel Lopez - Last Filed: 02/15/17 13:36> Objective - Vital Signs/Intake and Output Vital Signs (last 24 hours): Temp Pulse Resp BP Pulse Ox 98.8 F 65 21 154/78 H 78 L 02/15/17 04:00 02/15/17 09:18 02/15/17 09:18 02/15/17 09:42 02/15/17 08:25 Intake and Output: 02/15/17 02/15/17 06:59 18:59 Intake Total 450 Output Total 700 Balance -250 - Medications Medications: Current Medications Acetaminophen (Tylenol 325mg Tab) 650 mg PO Q6H PRN PRN Reason: for pain Albuterol Sulfate (Albuterol 0.083% Inhal Ros (2.5 Mg/3 Ml) Ud) 2.5 mg IH [id number] PRN PRN Reason: Shortness of Breath Amlodipine Besylate (Norvasc) 10 mg PO DAILY [facility] Last Admin: 02/15/17 09:42 Dose: 10 mg Aspirin (Ecotrin) 81 mg PO DAILY [facility] Last Admin: 02/15/17 09:44 Dose: Not Given Cephalexin Monohydrate (Keflex) 250 mg PO TID [facility] PRN Reason: Protocol Stop: 02/19/17 23:59 Gabapentin (Neurontin) 100 mg PO BID [facility] PRN Reason: Protocol Last Admin: 02/15/17 09:44 Dose: Not Given Hydralazine HCl (Apresoline) 10 mg PO QID PRN PRN Reason: for SBP>170 and Diastolic>100 Hydrochlorothiazide (Microzide) 12.5 mg PO MoWeFr@1000 [facility] Sodium Chloride (Sodium Chloride 0.9%) 1,000 mls @ 50 mls/hr IV .Q20H [facility] Stop: 02/15/17 20:00 Insulin Human Regular (Humulin R Low) 0 units SC ACHS [facility] PRN Reason: Protocol Last Admin: 02/15/17 09:36 Dose: Not Given Metformin HCl (Glucophage) 500 mg PO BID [facility] Morphine Sulfate (Morphine) 2 mg IVP Q4H PRN PRN Reason: Pain, severe (8-10) Last Admin: 02/13/17 06:25 Dose: 2 mg Home Med- ( Ranolazine [Ranexa] 500 Mg) 500 mg PO BID [facility] Last Admin: 02/14/17 17:08 Dose: 500 mg Polyethylene Glycol (Miralax) 17 gm PO DAILY [facility] Last Admin: 02/14/17 09:14 Dose: 17 gm - Labs Labs: 02/15/17 05:20 02/15/17 05:20 PT 10.9 Seconds (9.9-11.8) 02/15/17 05:20 INR 1.01 (0.93-1.08) 02/15/17 05:20 APTT 31.7 Seconds (23.7-30.8) H 02/15/17 05:20 Attending/Attestation - Attestation I have personally seen and examined this patient.: Yes I have fully participated in the care of the patient.: Yes I have reviewed all pertinent clinical information, including history, physical exam and plan: Yes Notes (Text): 02/15/17 13:28 86 yo male with symptomatic bradycardia. BP improved, off of chronotropic support, but still bradycardic. Concern for potential for recurrent symptomatology related to bradycardia was raised by cardiology service and patient is going for PPM today. ccm time 40 min
[2017-02-15] MEDS: Insulin Reg-LOW-Coverage SC SCH ×4 (09:36→21:38)
[2017-02-15] MEDS ORDERED: Lidocaine 2% Inj (20ml) ONE (10:58)
[2017-02-15] MEDS ORDERED: Midazolam 2 MG/2 ML VIAL ONE (10:58)
--- NOTE | 2017-02-15 11:54 | CP.PCM.PN ---
Subjective - Date & Time of Evaluation Date of Evaluation: 02/15/17 Time of Evaluation: 07:00 - Subjective Subjective: No chest pain, SOB, Dizzyness on external pPM off Dobutrex , his intrinsic rate 30-40 A flutter Objective - Vital Signs/Intake and Output Vital Signs (last 24 hours): Temp Pulse Resp BP Pulse Ox 98.8 F 65 21 154/78 H 78 L 02/15/17 04:00 02/15/17 09:18 02/15/17 09:18 02/15/17 09:42 02/15/17 08:25 Intake and Output: 02/15/17 02/15/17 06:59 18:59 Intake Total 450 Output Total 700 Balance -250 - Medications Medications: Current Medications Albuterol Sulfate (Albuterol 0.083% Inhal Ros (2.5 Mg/3 Ml) Ud) 2.5 mg IH [id number] PRN PRN Reason: Shortness of Breath Amlodipine Besylate (Norvasc) 10 mg PO DAILY [facility] Last Admin: 02/15/17 09:42 Dose: 10 mg Aspirin (Ecotrin) 81 mg PO DAILY [facility] Last Admin: 02/15/17 09:44 Dose: Not Given Gabapentin (Neurontin) 100 mg PO BID [facility] PRN Reason: Protocol Last Admin: 02/15/17 09:44 Dose: Not Given Hydralazine HCl (Apresoline) 10 mg PO QID PRN PRN Reason: for SBP>170 and Diastolic>100 Hydrochlorothiazide (Microzide) 12.5 mg PO MoWeFr@1000 [facility] Insulin Human Regular (Humulin R Low) 0 units SC ACHS [facility] PRN Reason: Protocol Last Admin: 02/15/17 09:36 Dose: Not Given Morphine Sulfate (Morphine) 2 mg IVP Q4H PRN PRN Reason: Pain, severe (8-10) Last Admin: 02/13/17 06:25 Dose: 2 mg Home Med- ( Ranolazine [Ranexa] 500 Mg) 500 mg PO BID [facility] Last Admin: 02/14/17 17:08 Dose: 500 mg Polyethylene Glycol (Miralax) 17 gm PO DAILY [facility] Last Admin: 02/14/17 09:14 Dose: 17 gm - Labs Labs: 02/15/17 05:20 02/15/17 05:20 PT 10.9 Seconds (9.9-11.8) 02/15/17 05:20 INR 1.01 (0.93-1.08) 02/15/17 05:20 APTT 31.7 Seconds (23.7-30.8) H 02/15/17 05:20 - Constitutional Appears: Well, Non-toxic - Head Exam Head Exam: ATRAUMATIC - Eye Exam Eye Exam: Conjunctival injection - ENT Exam ENT Exam: Mucous Membranes Dry - Neck Exam Neck Exam: Full ROM - Respiratory Exam Respiratory Exam: Clear to Ausculation Bilateral - Cardiovascular Exam Cardiovascular Exam: Bradycardia, Irregular Rhythm Assessment and Plan - Assessment and Plan (Free Text) Assessment: bradycardia A flutter SSS chronotropic incompetence CAD CABG HTN hyperlipedimia Plan: For PPM this afternoon. Discussed with pt and brandee. Npo for now, exvept meds.
[2017-02-15] MEDS ORDERED: Sodium Chloride 0.9% 1,000 ML IV SCH (13:00)
--- NOTE | 2017-02-15 13:25 | CARD ---
APPROVED REPORT HISTORY The Patient is a 86 year-old female with a history of CAD,S/p CABG Admitted with A flutter and slow VR and Dizzyness PROCEDURES Insertion Single Chamber Ventricle Pacemaker INDICATIONS SSS A flutter with slow VR Bradycardia with slow Heart rate Dizzyness. IMPLANTED DEVICES [employer]onic ADVISA SR MRI OPERATIVE NOTE The patient was brought to the Cardiac Catheterization Laboratory in a fasting state and was prepped and draped in a sterile manner. The left subclavian region was infiltrated with 2% Lidocaine, subcutaneous anesthesia. A transverse incision was made in the left subclavicular area. The subcutaneous pocket was formed via blunt dissection, Percutaneous venous access was achieved and an introducer sheath was inserted into the Lt Subclavian vein. Through the introducer sheath, the ventricular lead wire was postitioned in the right ventricular apex utilizing fluoroscopic guidance. The ventricular was advanced over the wire under fluoroscopic guidance and positioned in the right ventricle. Capturing and sensing thresholds were verified. THE VENTRICULAR ELECTRODE PARAMETERS R WAVE 5.5 THRESHOLD0.4 RESISTANCE 1050 The ventricular lead was then secured using Silk 2.0. The subcutaneous pocket was irrigated with Betadine. The ventricular lead was attached to the appropriate receptacle on the pulse generator and set screws firmly tightened to insure adequate contact and stability. The lead and pulse generator were placed into the subcutaneous pocket. Sharp and sponge counts were confirmed to be correct. At this time the pocket was closed subcutaneously with a Vicryl2.0 and the skin was closed with a Vicryl4.0 .The operative site was dressed in sterile fashion. The patient tolerated the procedure well and was transferred to the floor in stable condition. COMPLICATIONS The patient tolerated the procedure well and there were no complications associated with the procedure. CONCLUSION Successful Impantation of Single chamber VVI, ADVISA SR MRI Safe. CC;J.MD Phyllis
--- NOTE | 2017-02-15 13:34 | RAD ---
HISTORY: Post Pacemaker COMPARISON: 02/12/2017 FINDINGS: LUNGS: No active pulmonary disease. PLEURA: No significant pleural effusion identified, no pneumothorax apparent. CARDIOVASCULAR: Moderate cardiomegaly. Single lead pacemaker OSSEOUS STRUCTURES: Sternal wires VISUALIZED UPPER ABDOMEN: Normal. OTHER FINDINGS: None. IMPRESSION: No active disease.
[2017-02-15] MEDS: POLYETHYLENE GLYCOL 3350 17 GM/Dose PACKET PO SCH (14:46)
[2017-02-15] MEDS: Simethicone 80 mg Chewtab PO PRN (16:00)
[2017-02-15] MEDS: RANOLAZINE 500 MG PO SCH ×2 (16:00→18:15)
[2017-02-15 16:08] LABS: URINE BILIRUBIN NEGATIVE (NEGATIVE); URINE BLOOD MODERATE (NEGATIVE); URINE GLUCOSE (UA) NEGATIVE (NEGATIVE); URINE LEUKOCYTE ESTERASE TRACE Leu/uL (NEGATIVE); URINE NITRATE NEGATIVE (NEGATIVE); URINE PROTEIN NEGATIVE mg/dL (<30 mg/dL); URINE UROBILINOGEN 0.2 E.U./dL (<1 E.U./dL)
[2017-02-15 16:11] LABS: URINE COLOR YELLOW (YELLOW)
[2017-02-15 17:06] LABS: URINE BACTERIA MANY (NEG); URINE EPITHELIAL CELLS 0 - 2 /hpf (0-5)
[2017-02-15 17:07] LABS: URINE APPEARANCE CLOUDY (CLEAR)
--- NOTE | 2017-02-15 17:34 | CARD ---
APPROVED REPORT EKG Measurement Heart [id number] [place] 178P [id number] <Conclusion> Normal sinus rhythm with sinus arrhythmia Right bundle branch block Left anterior fascicular block Bifascicular block T wave abnormality, consider lateral ischemia Abnormal ECG
[2017-02-16 06:09] LABS: ALB/GLOB RATIO 1.4 (1.1-1.8); ALBUMIN 3.6 g/dL (3.0-4.8); CALCIUM 9.1 mg/dL (8.4-10.5); MAGNESIUM 1.8 mg/dL (1.7-2.2)
[2017-02-16 06:13] LABS: BASO # 0.01 K/mm3 (0.0-2.0); BASO % 0.1 % (0.0-3.0); EOS % 0.1 % (1.5-5.0); GRAN # 12.74 (1.4-6.5); GRAN % 89.3 % (50.0-68.0); HEMOGLOBIN 13.2 gm/dL (14.0-18.0); LYMPH # 0.7 (1.2-3.4); LYMPH % 4.6 % (22.0-35.0); MEAN CELL VOLUME 91.4 fL (80.0-105.0); MEAN CORPUSCULAR HEMOGLOBIN 30.8 pg (25.0-35.0); MEAN CORPUSCULAR HGB CONC 33.7 g/dl (31.0-37.0); MEAN PLATELET VOLUME 9.9 fl (7.0-11.0); MONO # 0.8 (0.1-0.6); MONO % 5.9 % (1.0-6.0); PLATELET COUNT 109 10^3/uL (120.0-450.0); RBC 4.29 10^6/uL (3.5-6.1); WHITE BLOOD COUNT 14.3 10^3/ul (4.5-11.0)
[2017-02-16 06:18] LABS: INR 1.16 (0.93-1.08); PROTHROMBIN TIME 12.5 Seconds (9.9-11.8)
--- NOTE | 2017-02-16 06:32 | CP.PCM.PN ---
Subjective - Date & Time of Evaluation Date of Evaluation: 02/16/17 Time of Evaluation: 06:40 - Subjective Subjective: Pt feels well. Tolerated the procedure well yesterday. No pain. He did develop urinary retention yesterday. Objective - Vital Signs/Intake and Output Vital Signs (last 24 hours): Temp Pulse Resp BP Pulse Ox 97.6 F 60 21 130/69 89 L 02/16/17 04:00 02/16/17 05:00 02/16/17 05:00 02/16/17 05:00 02/15/17 23:21 Intake and Output: 02/15/17 02/16/17 18:59 06:59 Intake Total 1410 400 Output Total 1351 300 Balance 59 100 - Medications Medications: Current Medications Acetaminophen (Tylenol 325mg Tab) 650 mg PO Q6H PRN PRN Reason: for pain Last Admin: 02/15/17 23:25 Dose: 650 mg Albuterol Sulfate (Albuterol 0.083% Inhal Ros (2.5 Mg/3 Ml) Ud) 2.5 mg IH [id number] PRN PRN Reason: Shortness of Breath Amlodipine Besylate (Norvasc) 10 mg PO DAILY [facility] Last Admin: 02/15/17 09:42 Dose: 10 mg Aspirin (Ecotrin) 81 mg PO DAILY [facility] Last Admin: 02/15/17 09:44 Dose: Not Given Cephalexin Monohydrate (Keflex) 250 mg PO TID [facility] PRN Reason: Protocol Stop: 02/19/17 23:59 Last Admin: 02/15/17 18:11 Dose: 250 mg Gabapentin (Neurontin) 100 mg PO BID [facility] PRN Reason: Protocol Last Admin: 02/15/17 18:11 Dose: 100 mg Hydralazine HCl (Apresoline) 10 mg PO QID PRN PRN Reason: for SBP>170 and Diastolic>100 Hydrochlorothiazide (Microzide) 12.5 mg PO MoWeFr@1000 [facility] Last Admin: 02/15/17 14:43 Dose: 12.5 mg Insulin Human Regular (Humulin R Low) 0 units SC ACHS [facility] PRN Reason: Protocol Last Admin: 02/15/17 21:38 Dose: Not Given Metformin HCl (Glucophage) 500 mg PO BID [facility] Last Admin: 02/15/17 18:14 Dose: 500 mg Morphine Sulfate (Morphine) 2 mg IVP Q4H PRN PRN Reason: Pain, severe (8-10) Last Admin: 02/13/17 06:25 Dose: 2 mg Home Med- ( Ranolazine [Ranexa] 500 Mg) 500 mg PO BID [facility] Last Admin: 02/15/17 18:15 Dose: 500 mg Phenazopyridine HCl (Pyridium) 100 mg PO [facility] Stop: 02/17/17 18:50 Polyethylene Glycol (Miralax) 17 gm PO DAILY [facility] Last Admin: 02/15/17 14:46 Dose: 17 gm Simethicone (Mylicon Chew Tab) 80 mg PO [facility] PRN PRN Reason: GI distress Last Admin: 02/15/17 16:00 Dose: 80 mg Tamsulosin HCl (Flomax) 0.4 mg PO DAILY [facility] Last Admin: 02/15/17 16:42 Dose: 0.4 mg - Labs Labs: 02/16/17 05:20 02/15/17 05:20 PT 12.5 Seconds (9.9-11.8) H 02/16/17 05:20 INR 1.16 (0.93-1.08) H 02/16/17 05:20 APTT 34.0 Seconds (23.7-30.8) H 02/16/17 05:20 - Constitutional Appears: Well - Head Exam Head Exam: NORMAL INSPECTION, NORMOCEPHALIC - ENT Exam ENT Exam: Mucous Membranes Moist, Normal Exam - Neck Exam Neck Exam: Full ROM, Normal Inspection. absent: Lymphadenopathy - Respiratory Exam Respiratory Exam: Clear to Ausculation Bilateral, NORMAL BREATHING PATTERN. absent: Rales, Rhonchi, Wheezes - GI/Abdominal Exam GI & Abdominal Exam: Soft, Normal Bowel Sounds. absent: Tenderness - Rectal Exam Rectal Exam: NORMAL INSPECTION - Extremities Exam Extremities Exam: Full ROM, Joint Swelling, Normal Capillary Refill, Normal Inspection, Tenderness. absent: Pedal Edema - Skin Skin Exam: Normal Color Assessment and Plan - Assessment and Plan (Free Text) Assessment: Dizziness secondary to bradycardia s/p pacemaker placement CAD s/p CABG HTN DM-2 COPD Dyslipidemia Urinary retention Plan: Pt with urinary retention. Eating well. Pain controlled. On Norvasc for HTN. Continue with Metformin for DM-2. ISS with FS coverage. HCTZ for HTN. Morphine for pain. Will transfer to [facility] and ambulate pt. BRANDEI , will need to follow. Pt had urinary retention yesterday. Spoke to daughter yesterday.
[2017-02-16] MEDS: Insulin Reg-LOW-Coverage SC SCH ×4 (08:10→22:00)
[2017-02-16] MEDS: RANOLAZINE 500 MG PO SCH ×2 (09:05→18:07)
[2017-02-16] MEDS: POLYETHYLENE GLYCOL 3350 17 GM/Dose PACKET PO SCH (09:07)
--- NOTE | 2017-02-16 10:43 | CP.PCM.PN ---
Subjective - Date & Time of Evaluation Date of Evaluation: 02/16/17 Time of Evaluation: 07:30 - Subjective Subjective: Feels tired, body ache Objective - Vital Signs/Intake and Output Vital Signs (last 24 hours): Temp Pulse Resp BP Pulse Ox 97.6 F 66 19 98/53 L 98 02/16/17 04:00 02/16/17 09:10 02/16/17 09:09 02/16/17 09:11 02/16/17 09:10 Intake and Output: 02/16/17 02/16/17 06:59 18:59 Intake Total 400 Output Total 300 Balance 100 - Medications Medications: Current Medications Acetaminophen (Tylenol 325mg Tab) 650 mg PO Q6H PRN PRN Reason: for pain Last Admin: 02/16/17 08:45 Dose: 650 mg Albuterol Sulfate (Albuterol 0.083% Inhal Ros (2.5 Mg/3 Ml) Ud) 2.5 mg IH [id number] PRN PRN Reason: Shortness of Breath Amlodipine Besylate (Norvasc) 10 mg PO DAILY [facility] Last Admin: 02/16/17 09:11 Dose: Not Given Aspirin (Ecotrin) 81 mg PO DAILY [facility] Last Admin: 02/16/17 09:11 Dose: 81 mg Cephalexin Monohydrate (Keflex) 250 mg PO TID [facility] PRN Reason: Protocol Stop: 02/19/17 23:59 Last Admin: 02/16/17 09:07 Dose: 250 mg Gabapentin (Neurontin) 100 mg PO BID [facility] PRN Reason: Protocol Last Admin: 02/16/17 09:07 Dose: 100 mg Hydralazine HCl (Apresoline) 10 mg PO QID PRN PRN Reason: for SBP>170 and Diastolic>100 Hydrochlorothiazide (Microzide) 12.5 mg PO MoWeFr@1000 [facility] Last Admin: 02/15/17 14:43 Dose: 12.5 mg Insulin Human Regular (Humulin R Low) 0 units SC ACHS [facility] PRN Reason: Protocol Last Admin: 02/16/17 08:10 Dose: Not Given Morphine Sulfate (Morphine) 2 mg IVP Q4H PRN PRN Reason: Pain, severe (8-10) Last Admin: 02/13/17 06:25 Dose: 2 mg Home Med- ( Ranolazine [Ranexa] 500 Mg) 500 mg PO BID [facility] Last Admin: 02/16/17 09:05 Dose: 500 mg Phenazopyridine HCl (Pyridium) 100 mg PO [facility] Stop: 02/17/17 18:50 Polyethylene Glycol (Miralax) 17 gm PO DAILY [facility] Last Admin: 02/16/17 09:07 Dose: 17 gm Simethicone (Mylicon Chew Tab) 80 mg PO [facility] PRN PRN Reason: GI distress Last Admin: 02/15/17 16:00 Dose: 80 mg Tamsulosin HCl (Flomax) 0.4 mg PO DAILY [facility] Last Admin: 02/16/17 09:06 Dose: 0.4 mg - Labs Labs: 02/16/17 05:20 02/16/17 05:20 PT 12.5 Seconds (9.9-11.8) H 02/16/17 05:20 INR 1.16 (0.93-1.08) H 02/16/17 05:20 APTT 34.0 Seconds (23.7-30.8) H 02/16/17 05:20 - Constitutional Appears: Non-toxic - Head Exam Head Exam: ATRAUMATIC - ENT Exam ENT Exam: Mucous Membranes Dry - Neck Exam Neck Exam: Full ROM - Respiratory Exam Respiratory Exam: Clear to Ausculation Bilateral Additional comments: Left side of chest appears ok, mild hematoma at PPM site but non tender. - Cardiovascular Exam Cardiovascular Exam: Irregular Rhythm Assessment and Plan - Assessment and Plan (Free Text) Assessment: A flutter SSS Bradicaria S/p PPM CAD, S/p CABG HTN elevated WBC? etilogy not clear feeling weak R/o sepsis/ Plan: OOB to chair tx to tele Physical therapy Left arm in sling For 24 hours resume beta alessia Blood C7S , Urine C&S
[2017-02-16] MEDS ORDERED: Sodium Chloride 0.9% 1,000 ML IV STA (11:08)
[2017-02-16 11:38] LABS: ARTERIAL BLOOD GAS HCO3 19.6 mmol/L (21-28); ARTERIAL BLOOD GAS O2 SAT 93.3 % (95-98); ARTERIAL BLOOD GAS PCO2 31 mm/Hg (35-45); ARTERIAL BLOOD GAS PH 7.41 (7.35-7.45); ARTERIAL BLOOD GAS TCO2 20.6 mmol.L (22-28)
--- NOTE | 2017-02-16 11:56 | RAD ---
HISTORY: sepsis COMPARISON: 02/15/2017 FINDINGS: LUNGS: No active pulmonary disease. PLEURA: Elevation of left hemidiaphragm unchanged CARDIOVASCULAR: Moderate cardiomegaly OSSEOUS STRUCTURES: No significant abnormalities. VISUALIZED UPPER ABDOMEN: Normal. OTHER FINDINGS: Left-sided single lead pacemaker IMPRESSION: No active disease.
--- NOTE | 2017-02-16 12:35 | CARD ---
APPROVED REPORT EKG Measurement Heart [id number] ME [id number] <Conclusion> Demand pacemaker, Underlying A Flutter.
[2017-02-16] MEDS ORDERED: Lidocaine 2% Inj (20ml) ONE (14:05)
--- NOTE | 2017-02-16 14:11 | CT ---
PROCEDURE: CT HEAD WITHOUT CONTRAST. HISTORY: Altered mental status COMPARISON: 04/15/2013. TECHNIQUE: Axial computed tomography images were obtained through the head/brain without intravenous contrast. Radiation dose: Total exam DLP = 789.52 mGy-cm. This CT exam was performed using one or more of the following dose reduction techniques: Automated exposure control, adjustment of the mA and/or kV according to patient size, and/or use of iterative reconstruction technique. FINDINGS: HEMORRHAGE: No intracranial hemorrhage. BRAIN: There are mild chronic microangiopathic changes. There is no mass, mass effect or abnormal extra-axial fluid collection. VENTRICLES: There is mild age-related global parenchymal volume loss and proportionate enlargement of the ventricles and cortical sulci. CALVARIUM: The skull base and calvarium are normal. PARANASAL SINUSES: Predominantly clear. MASTOID AIR CELLS: Predominantly clear. OTHER FINDINGS: None. IMPRESSION: No acute intracranial abnormality. Mild chronic microangiopathic changes and mild age-related global parenchymal volume loss.
--- NOTE | 2017-02-16 14:41 | CT ---
PROCEDURE: CT Chest, Abdomen and Pelvis without intravenous contrast HISTORY: sepsis of unclear etiology COMPARISON: None TECHNIQUE: Radiation dose: Total exam DLP = 1187 mGy-cm. This CT exam was performed using one or more of the following dose reduction techniques: Automated exposure control, adjustment of the mA and/or kV according to patient size, and/or use of iterative reconstruction technique. FINDINGS: CT CHEST WITHOUT CONTRAST: LUNGS: Small focal areas of consolidation are seen at the left lung base. There is posterior bibasilar atelectasis. MEDIASTINUM: Unremarkable. Normal caliber aorta and pulmonary arterial trunk. Normal size heart. LYMPH NODES: Unremarkable. PLEURA: Unremarkable. No pneumothorax. No pleural fluid. BONES: Unremarkable. OTHER FINDINGS: Moderate hiatal hernia CT ABDOMEN AND PELVIS: LIVER: Unremarkable. No gross lesion or ductal dilatation. GALLBLADDER AND BILE DUCTS: Unremarkable. PANCREAS: Unremarkable. No gross lesion or ductal dilatation. SPLEEN: Unremarkable. ADRENALS: Unremarkable. No mass. KIDNEYS AND URETERS: Chronic right-sided hydronephrosis with atrophy VASCULATURE: Unremarkable. No aortic aneurysm. BOWEL: Unremarkable. No obstruction. No gross mural thickening. APPENDIX: Normal appendix. PERITONEUM: Unremarkable. No free fluid. No free air. LYMPH NODES: Unremarkable. No enlarged lymph nodes. BLADDER: There is a Beatty catheter in the bladder the bladder is decompressed around the Beatty. REPRODUCTIVE: Unremarkable. BONES: No acute fracture. OTHER FINDINGS: None. IMPRESSION: Small areas of consolidation at the left lung base, possible pneumonia. No acute intra-abdominal findings.
--- NOTE | 2017-02-16 15:03 | CP.PCM.CON ---
Past Patient History - Infectious Disease Hx of Infectious Diseases: None - Tetanus Immunizations Tetanus Immunization: Up to Date - Past Social History Smoking Status: Former Smoker - CARDIAC Hx Hypertension: Yes Hx Pacemaker: No - PULMONARY Hx Chronic Obstructive Pulmonary Disease (COPD): Yes - NEUROLOGICAL Hx Paralysis: No - HEENT Hx HEENT Problems: No - RENAL Hx Chronic Kidney Disease: Yes - ENDOCRINE/METABOLIC Hx Diabetes Mellitus Type 2: Yes - HEMATOLOGICAL/ONCOLOGICAL Hx Blood Transfusions: No Hx Blood Transfusion Reaction: No - INTEGUMENTARY Hx Dermatological Problems: No - MUSCULOSKELETAL/RHEUMATOLOGICAL Hx Falls: No - GASTROINTESTINAL Hx Gastrointestinal Disorders: No - GENITOURINARY/GYNECOLOGICAL Other/Comment: TURP - PSYCHIATRIC Hx Depression: No Hx Substance Use: No - SURGICAL HISTORY Hx Coronary Stent: Yes - ANESTHESIA Hx Anesthesia Reactions: No Hx Malignant Hyperthermia: No Meds Allergies/Adverse Reactions: Allergies Allergy/AdvReac Type Severity Reaction Status Date / Time pentazocine Allergy RASH Verified 02/12/17 13:02 - Medications Medications: Current Medications Acetaminophen (Tylenol 325mg Tab) 650 mg PO Q6H PRN PRN Reason: for pain Last Admin: 02/16/17 08:45 Dose: 650 mg Albuterol Sulfate (Albuterol 0.083% Inhal Ros (2.5 Mg/3 Ml) Ud) 2.5 mg IH [id number] PRN PRN Reason: Shortness of Breath Amlodipine Besylate (Norvasc) 10 mg PO DAILY [facility] Last Admin: 02/16/17 09:11 Dose: Not Given Aspirin (Ecotrin) 81 mg PO DAILY [facility] Last Admin: 02/16/17 09:11 Dose: 81 mg Cephalexin Monohydrate (Keflex) 250 mg PO TID [facility] PRN Reason: Protocol Stop: 02/19/17 23:59 Last Admin: 02/16/17 09:07 Dose: 250 mg Gabapentin (Neurontin) 100 mg PO BID [facility] PRN Reason: Protocol Last Admin: 02/16/17 09:07 Dose: 100 mg Hydralazine HCl (Apresoline) 10 mg PO QID PRN PRN Reason: for SBP>170 and Diastolic>100 Hydrochlorothiazide (Microzide) 12.5 mg PO MoWeFr@1000 [facility] Last Admin: 02/15/17 14:43 Dose: 12.5 mg Meropenem 1g/NS 100mL IVPB (Meropenem 1g/Ns 100ml Ivpb) 1 gm in 100 mls @ 100 mls/hr IVPB Q12 ANAHY PRN Reason: Protocol Stop: 02/23/17 11:16 Linezolid (Zyvox 600mg/300ml D5w) 600 mg in 300 mls @ 200 mls/hr IVPB Q12 ANAHY PRN Reason: Protocol Stop: 02/23/17 11:16 Insulin Human Regular (Humulin R Low) 0 units SC ACHS ANAHY PRN Reason: Protocol Last Admin: 02/16/17 08:10 Dose: Not Given Morphine Sulfate (Morphine) 2 mg IVP Q4H PRN PRN Reason: Pain, severe (8-10) Last Admin: 02/13/17 06:25 Dose: 2 mg Home Med- ( Ranolazine [Ranexa] 500 Mg) 500 mg PO BID [facility] Last Admin: 02/16/17 09:05 Dose: 500 mg Phenazopyridine HCl (Pyridium) 100 mg PO PC [facility] Stop: 02/17/17 18:50 Polyethylene Glycol (Miralax) 17 gm PO DAILY [facility] Last Admin: 02/16/17 09:07 Dose: 17 gm Simethicone (Mylicon Chew Tab) 80 mg PO [facility] PRN PRN Reason: GI distress Last Admin: 02/15/17 16:00 Dose: 80 mg Tamsulosin HCl (Flomax) 0.4 mg PO DAILY [facility] Last Admin: 02/16/17 09:06 Dose: 0.4 mg Results - Vital Signs Recent Vital Signs: Last Vital Signs Temp 97.6 F 02/16/17 04:00 Pulse 66 02/16/17 09:10 Resp 19 02/16/17 09:09 BP 98/53 L 02/16/17 09:11 Pulse Ox 98 02/16/17 09:10 - Labs Result Diagrams: 02/16/17 05:20 02/16/17 05:20 Labs: Laboratory Results - last 24 hr 02/15/17 02/15/17 02/15/17 15:57 16:44 21:32 WBC RBC Hgb Hct MCV MCH MCHC RDW Plt Count MPV Gran % Lymph % (Auto) [place] % (Auto) Eos % (Auto) Baso % (Auto) Gran # Lymph # [place] # Eos # Baso # PT INR APTT pCO2 pO2 HCO3 ABG pH ABG Total CO2 ABG O2 Saturation ABG Base Excess ABG Potassium Glucose Lactate FiO2 Sodium Potassium Chloride Carbon Dioxide Anion Gap BUN Creatinine Est GFR ( Amer) Est GFR (Non-Af Amer) POC Glucose (mg/dL) 247 H 180 H Random Glucose Calcium Phosphorus Magnesium Total Bilirubin AST ALT Alkaline Phosphatase Total Creatine Kinase Troponin I Total Protein Albumin Globulin Albumin/Globulin Ratio Arterial Blood Potassium Urine Color Yellow Urine Appearance Cloudy Urine pH 6.0 Ur Specific [place] 1.010 Urine Protein Negative Urine Glucose (UA) Negative Urine Ketones Negative Urine Blood Moderate H Urine Nitrate Negative Urine Bilirubin Negative Urine Urobilinogen 0.2 Ur Leukocyte Esterase Trace H Urine RBC 1 - 3 Urine WBC 10 - 15 Ur Epithelial Cells 0 - 2 Urine Bacteria Many 02/16/17 02/16/17 02/16/17 05:20 05:20 05:20 WBC 14.3 H D RBC 4.29 Hgb 13.2 L Hct 39.2 L MCV 91.4 MCH 30.8 MCHC 33.7 RDW 15.0 H Plt Count 109 L MPV 9.9 Gran % 89.3 H Lymph % (Auto) 4.6 L [place] % (Auto) 5.9 Eos % (Auto) 0.1 L Baso % (Auto) 0.1 Gran # 12.74 H Lymph # 0.7 L [place] # 0.8 H Eos # 0.0 Baso # 0.01 PT 12.5 H INR 1.16 H APTT 34.0 H pCO2 pO2 HCO3 ABG pH ABG Total CO2 ABG O2 Saturation ABG Base Excess ABG Potassium Glucose Lactate FiO2 Sodium 137 Potassium 4.8 Chloride 100 Carbon Dioxide 24 Anion Gap 18 BUN 33 H Creatinine 1.6 H Est GFR ( Amer) 50 Est GFR (Non-Af Amer) 41 POC Glucose (mg/dL) Random Glucose 158 H Calcium 9.1 Phosphorus 4.2 Magnesium 1.8 Total Bilirubin 1.6 H AST 25 ALT 30 Alkaline Phosphatase 56 Total Creatine Kinase Troponin I Total Protein 6.2 Albumin 3.6 Globulin 2.6 Albumin/Globulin Ratio 1.4 Arterial Blood Potassium Urine Color Urine Appearance Urine pH Ur Specific [place] Urine Protein Urine Glucose (UA) Urine Ketones Urine Blood Urine Nitrate Urine Bilirubin Urine Urobilinogen Ur Leukocyte Esterase Urine RBC Urine WBC Ur Epithelial Cells Urine Bacteria 02/16/17 02/16/17 02/16/17 07:35 09:00 10:18 WBC RBC Hgb Hct MCV MCH MCHC RDW Plt Count MPV Gran % Lymph % (Auto) [place] % (Auto) Eos % (Auto) Baso % (Auto) Gran # Lymph # [place] # Eos # Baso # PT INR APTT pCO2 pO2 HCO3 ABG pH ABG Total CO2 ABG O2 Saturation ABG Base Excess ABG Potassium Glucose Lactate FiO2 Sodium Potassium Chloride Carbon Dioxide Anion Gap BUN Creatinine Est GFR ( Amer) Est GFR (Non-Af Amer) POC Glucose (mg/dL) 148 H 272 H Random Glucose Calcium Phosphorus Magnesium Total Bilirubin AST ALT Alkaline Phosphatase Total Creatine Kinase 217 Troponin I Total Protein Albumin Globulin Albumin/Globulin Ratio Arterial Blood Potassium Urine Color Urine Appearance Urine pH Ur Specific [place] Urine Protein Urine Glucose (UA) Urine Ketones Urine Blood Urine Nitrate Urine Bilirubin Urine Urobilinogen Ur Leukocyte Esterase Urine RBC Urine WBC Ur Epithelial Cells Urine Bacteria 02/16/17 02/16/17 11:30 11:45 WBC RBC Hgb Hct MCV MCH MCHC RDW Plt Count MPV Gran % Lymph % (Auto) [place] % (Auto) Eos % (Auto) Baso % (Auto) Gran # Lymph # [place] # Eos # Baso # PT INR APTT pCO2 31 L pO2 58.0 L HCO3 19.6 L ABG pH 7.41 ABG Total CO2 20.6 L ABG O2 Saturation 93.3 L ABG Base Excess -4.0 L ABG Potassium 3.7 Glucose 201 H Lactate 1.6 FiO2 32.0 Sodium 130.0 L Potassium Chloride 106.0 Carbon Dioxide Anion Gap BUN Creatinine Est GFR ( Amer) Est GFR (Non-Af Amer) POC Glucose (mg/dL) Random Glucose Calcium Phosphorus Magnesium Total Bilirubin AST ALT Alkaline Phosphatase Total Creatine Kinase Troponin I 0.01 Total Protein Albumin Globulin Albumin/Globulin Ratio Arterial Blood Potassium 3.7 Urine Color Urine Appearance Urine pH Ur Specific [place] Urine Protein Urine Glucose (UA) Urine Ketones Urine Blood Urine Nitrate Urine Bilirubin Urine Urobilinogen Ur Leukocyte Esterase Urine RBC Urine WBC Ur Epithelial Cells Urine Bacteria
--- NOTE | 2017-02-16 15:05 | CP.PCM.PN ---
<GRISEL REIS - Last Filed: 02/16/17 15:50> Subjective - Date & Time of Evaluation Date of Evaluation: 02/16/17 Time of Evaluation: 14:00 - Subjective Subjective: PGY1 ICU Progress Note: Pt seen and examined at bedside. Pt febrile overnight, lethargic, clammy, hypotensive, given IVF bolus. Today, pt AAOx3, c/o body aches, attributes to arthritis, denies headache, sob, cp, abdominal pain. Objective - Vital Signs/Intake and Output Vital Signs (last 24 hours): Temp Pulse Resp BP Pulse Ox 97.6 F 66 19 98/53 L 98 02/16/17 04:00 02/16/17 09:10 02/16/17 09:09 02/16/17 09:11 02/16/17 09:10 Intake and Output: 02/16/17 02/16/17 06:59 18:59 Intake Total 400 Output Total 300 Balance 100 - Medications Medications: Current Medications Acetaminophen (Tylenol 325mg Tab) 650 mg PO Q6H PRN PRN Reason: for pain Last Admin: 02/16/17 08:45 Dose: 650 mg Albuterol Sulfate (Albuterol 0.083% Inhal Ros (2.5 Mg/3 Ml) Ud) 2.5 mg IH [id number] PRN PRN Reason: Shortness of Breath Amlodipine Besylate (Norvasc) 10 mg PO DAILY [facility] Last Admin: 02/16/17 09:11 Dose: Not Given Aspirin (Ecotrin) 81 mg PO DAILY [facility] Last Admin: 02/16/17 09:11 Dose: 81 mg Cephalexin Monohydrate (Keflex) 250 mg PO TID [facility] PRN Reason: Protocol Stop: 02/19/17 23:59 Last Admin: 02/16/17 09:07 Dose: 250 mg Gabapentin (Neurontin) 100 mg PO BID [facility] PRN Reason: Protocol Last Admin: 02/16/17 09:07 Dose: 100 mg Hydralazine HCl (Apresoline) 10 mg PO QID PRN PRN Reason: for SBP>170 and Diastolic>100 Hydrochlorothiazide (Microzide) 12.5 mg PO MoWeFr@1000 [facility] Last Admin: 02/15/17 14:43 Dose: 12.5 mg Meropenem 1g/NS 100mL IVPB (Meropenem 1g/Ns 100ml Ivpb) 1 gm in 100 mls @ 100 mls/hr IVPB Q12 [facility] PRN Reason: Protocol Stop: 02/23/17 11:16 Linezolid (Zyvox 600mg/300ml D5w) 600 mg in 300 mls @ 200 mls/hr IVPB Q12 [facility] PRN Reason: Protocol Stop: 02/23/17 11:16 Insulin Human Regular (Humulin R Low) 0 units SC ACHS [facility] PRN Reason: Protocol Last Admin: 02/16/17 08:10 Dose: Not Given Morphine Sulfate (Morphine) 2 mg IVP Q4H PRN PRN Reason: Pain, severe (8-10) Last Admin: 02/13/17 06:25 Dose: 2 mg Home Med- ( Ranolazine [Ranexa] 500 Mg) 500 mg PO BID [facility] Last Admin: 02/16/17 09:05 Dose: 500 mg Phenazopyridine HCl (Pyridium) 100 mg PO [facility] Stop: 02/17/17 18:50 Polyethylene Glycol (Miralax) 17 gm PO DAILY [facility] Last Admin: 02/16/17 09:07 Dose: 17 gm Simethicone (Mylicon Chew Tab) 80 mg PO [facility] PRN PRN Reason: GI distress Last Admin: 02/15/17 16:00 Dose: 80 mg Tamsulosin HCl (Flomax) 0.4 mg PO DAILY [facility] Last Admin: 02/16/17 09:06 Dose: 0.4 mg - Labs Labs: 02/16/17 05:20 02/16/17 05:20 PT 12.5 Seconds (9.9-11.8) H 02/16/17 05:20 INR 1.16 (0.93-1.08) H 02/16/17 05:20 APTT 34.0 Seconds (23.7-30.8) H 02/16/17 05:20 - Constitutional Appears: In Acute Distress - Head Exam Head Exam: ATRAUMATIC, NORMOCEPHALIC - Eye Exam Eye Exam: PERRL - ENT Exam ENT Exam: Mucous Membranes Moist - Respiratory Exam Respiratory Exam: Decreased Breath Sounds Additional comments: Crackles LLL - Cardiovascular Exam Cardiovascular Exam: RRR, +S1, +S2. absent: Gallop, Rubs, Murmur - GI/Abdominal Exam GI & Abdominal Exam: Normal Bowel Sounds Additional comments: Mild distension, No tenderness - Extremities Exam Extremities Exam: absent: Calf Tenderness, Pedal Edema, Tenderness - Psychiatric Exam Psychiatric exam: Anxious - Skin Skin Exam: Dry, Intact, Warm Assessment and Plan - Assessment and Plan (Free Text) Assessment: 86M with PMH afib, HTN, CAD, CKD, admitted for symptomatic bradycardia 2/2 intrinsic electrical cardiac dysfunction, s/p PPM yesterday, in severe sepsis today 2/2 likely UTI. Other etiologies include PNA (unlikely bc small infiltrates on CT chest). CT abdomen shows no acute changes. F/u blood cultures , urine culture, procal, c/w empiric abx Merrem and Zyvox. Cont to closely monitor. Plan: Neuro: AAXO3 currently. lethargic, clammy last night CT head shows no acute changes. Cont to monitor CV: Hypotensive SBP 60's, s/p IVF bolus, currently 98/53. Hold antihypertensives. Cont to monitor PPM placed yesterday. HR 61-72. Site nonerythematous, nontender, no oozing of blood. Resp: on 3L NC. maintain SpO2>90% Nephro: BRANDIE. BUN/Cr 33/1.6, c/w IVF. s/p PICC line insertion. Maintain electrolytes and euvolemia. Hx of urinary retention/bph. C/w Flomax GI: Protonix. on heart healthy diet. ID: febrile 100.9F overnight, leukocytosis 8.5->14.3, C/w Merrem and Zyvox. F/u ID consult. Ucx shows GNR, f/u F/u blood cultures, sputum culture, procalcitonin. CT chest shows small LLbase infiltrate. CT abd/pelvis shows no acute changes. Endo: Maintain euglycemia Case discussed with Dr. Lopez. Grisel Reis, PGY1 <Israel Lopez - Last Filed: 02/16/17 19:00> Objective - Vital Signs/Intake and Output Vital Signs (last 24 hours): Temp Pulse Resp BP Pulse Ox 98 F 66 21 116/56 L 96 02/16/17 16:00 02/16/17 16:00 02/16/17 16:00 02/16/17 16:00 02/16/17 16:00 - Medications Medications: Current Medications Acetaminophen (Tylenol 325mg Tab) 650 mg PO Q6H PRN PRN Reason: for pain Last Admin: 02/16/17 18:12 Dose: 650 mg Albuterol Sulfate (Albuterol 0.083% Inhal Ros (2.5 Mg/3 Ml) Ud) 2.5 mg IH [id number] PRN PRN Reason: Shortness of Breath Amlodipine Besylate (Norvasc) 10 mg PO DAILY [facility] Last Admin: 02/16/17 09:11 Dose: Not Given Aspirin (Ecotrin) 81 mg PO DAILY [facility] Last Admin: 02/16/17 09:11 Dose: 81 mg Cephalexin Monohydrate (Keflex) 250 mg PO TID [facility] PRN Reason: Protocol Stop: 02/19/17 23:59 Last Admin: 02/16/17 09:07 Dose: 250 mg Gabapentin (Neurontin) 100 mg PO BID [facility] PRN Reason: Protocol Last Admin: 02/16/17 09:07 Dose: 100 mg Hydralazine HCl (Apresoline) 10 mg PO QID PRN PRN Reason: for SBP>170 and Diastolic>100 Hydrochlorothiazide (Microzide) 12.5 mg PO MoWeFr@1000 [facility] Last Admin: 02/15/17 14:43 Dose: 12.5 mg Meropenem 1g/NS 100mL IVPB (Meropenem 1g/Ns 100ml Ivpb) 1 gm in 100 mls @ 100 mls/hr IVPB Q12 [facility] PRN Reason: Protocol Stop: 02/23/17 11:16 Last Admin: 02/16/17 15:22 Dose: 100 mls/hr Linezolid (Zyvox 600mg/300ml D5w) 600 mg in 300 mls @ 200 mls/hr IVPB Q12 [facility] PRN Reason: Protocol Stop: 02/23/17 11:16 Last Admin: 02/16/17 15:23 Dose: 200 mls/hr Insulin Human Regular (Humulin R Low) 0 units SC ACHS [facility] PRN Reason: Protocol Last Admin: 02/16/17 17:07 Dose: Not Given Morphine Sulfate (Morphine) 2 mg IVP Q4H PRN PRN Reason: Pain, severe (8-10) Last Admin: 02/13/17 06:25 Dose: 2 mg Home Med- ( Ranolazine [Ranexa] 500 Mg) 500 mg PO BID [facility] Last Admin: 02/16/17 18:07 Dose: 500 mg Polyethylene Glycol (Miralax) 17 gm PO DAILY [facility] Last Admin: 02/16/17 09:07 Dose: 17 gm Simethicone (Mylicon Chew Tab) 80 mg PO [facility] PRN PRN Reason: GI distress Last Admin: 02/15/17 16:00 Dose: 80 mg Tamsulosin HCl (Flomax) 0.4 mg PO DAILY [facility] Last Admin: 02/16/17 09:06 Dose: 0.4 mg - Labs Labs: 02/16/17 05:20 02/16/17 05:20 PT 12.5 Seconds (9.9-11.8) H 02/16/17 05:20 INR 1.16 (0.93-1.08) H 02/16/17 05:20 APTT 34.0 Seconds (23.7-30.8) H 02/16/17 05:20 Attending/Attestation - Attestation I have personally seen and examined this patient.: Yes I have fully participated in the care of the patient.: Yes I have reviewed all pertinent clinical information, including history, physical exam and plan: Yes Notes (Text): 02/16/17 19:[address] Lopez note
--- NOTE | 2017-02-16 15:06 | CP.PCM.PN ---
Subjective - Date & Time of Evaluation Date of Evaluation: 02/16/17 Time of Evaluation: 14:54 - Subjective Subjective: patient looks tired, mildly somnolent but easily arousable. Objective - Vital Signs/Intake and Output Vital Signs (last 24 hours): Temp Pulse Resp BP Pulse Ox 97.6 F 66 19 98/53 L 98 02/16/17 04:00 02/16/17 09:10 02/16/17 09:09 02/16/17 09:11 02/16/17 09:10 Intake and Output: 02/16/17 02/16/17 06:59 18:59 Intake Total 400 Output Total 300 Balance 100 - Medications Medications: Current Medications Acetaminophen (Tylenol 325mg Tab) 650 mg PO Q6H PRN PRN Reason: for pain Last Admin: 02/16/17 08:45 Dose: 650 mg Albuterol Sulfate (Albuterol 0.083% Inhal Ros (2.5 Mg/3 Ml) Ud) 2.5 mg IH [id number] PRN PRN Reason: Shortness of Breath Amlodipine Besylate (Norvasc) 10 mg PO DAILY [facility] Last Admin: 02/16/17 09:11 Dose: Not Given Aspirin (Ecotrin) 81 mg PO DAILY [facility] Last Admin: 02/16/17 09:11 Dose: 81 mg Cephalexin Monohydrate (Keflex) 250 mg PO TID [facility] PRN Reason: Protocol Stop: 02/19/17 23:59 Last Admin: 02/16/17 09:07 Dose: 250 mg Gabapentin (Neurontin) 100 mg PO BID [facility] PRN Reason: Protocol Last Admin: 02/16/17 09:07 Dose: 100 mg Hydralazine HCl (Apresoline) 10 mg PO QID PRN PRN Reason: for SBP>170 and Diastolic>100 Hydrochlorothiazide (Microzide) 12.5 mg PO MoWeFr@1000 [facility] Last Admin: 02/15/17 14:43 Dose: 12.5 mg Meropenem 1g/NS 100mL IVPB (Meropenem 1g/Ns 100ml Ivpb) 1 gm in 100 mls @ 100 mls/hr IVPB Q12 [facility] PRN Reason: Protocol Stop: 02/23/17 11:16 Linezolid (Zyvox 600mg/300ml D5w) 600 mg in 300 mls @ 200 mls/hr IVPB Q12 [facility] PRN Reason: Protocol Stop: 02/23/17 11:16 Insulin Human Regular (Humulin R Low) 0 units SC ACHS [facility] PRN Reason: Protocol Last Admin: 02/16/17 08:10 Dose: Not Given Morphine Sulfate (Morphine) 2 mg IVP Q4H PRN PRN Reason: Pain, severe (8-10) Last Admin: 02/13/17 06:25 Dose: 2 mg Home Med- ( Ranolazine [Ranexa] 500 Mg) 500 mg PO BID [facility] Last Admin: 02/16/17 09:05 Dose: 500 mg Phenazopyridine HCl (Pyridium) 100 mg PO [facility] Stop: 02/17/17 18:50 Polyethylene Glycol (Miralax) 17 gm PO DAILY [facility] Last Admin: 02/16/17 09:07 Dose: 17 gm Simethicone (Mylicon Chew Tab) 80 mg PO [facility] PRN PRN Reason: GI distress Last Admin: 02/15/17 16:00 Dose: 80 mg Tamsulosin HCl (Flomax) 0.4 mg PO DAILY [facility] Last Admin: 02/16/17 09:06 Dose: 0.4 mg - Labs Labs: 02/16/17 05:20 02/16/17 05:20 PT 12.5 Seconds (9.9-11.8) H 02/16/17 05:20 INR 1.16 (0.93-1.08) H 02/16/17 05:20 APTT 34.0 Seconds (23.7-30.8) H 02/16/17 05:20 - Constitutional Appears: No Acute Distress - Head Exam Head Exam: ATRAUMATIC, NORMAL INSPECTION, NORMOCEPHALIC - Respiratory Exam Respiratory Exam: Clear to Ausculation Bilateral, NORMAL BREATHING PATTERN - Cardiovascular Exam Cardiovascular Exam: REGULAR RHYTHM, +S1, +S2 - GI/Abdominal Exam Additional comments: soft, NT/ND - Extremities Exam Extremities Exam: Normal Capillary Refill - Neurological Exam Additional comments: patient moves all extremities spontaneously - Psychiatric Exam Additional comments: somnolent but easily arousable - Skin Skin Exam: Warm Assessment and Plan - Assessment and Plan (Free Text) Assessment: 86 yo male with recent PPM placement for symptomatic bradycardia, now presented for ICU re-eval due to severe sepsis with MODS (BRANDIE, septic encephalopathy) secondary to GNR UTI. UTI appears to be a major source of sepsis as CXR remains to be unremarkable and thus small infiltrate on CT chest may not be a new finding corresponding to present change in patient clinical status. CT abdomen did not reveal acute findings. Leukocytosis and BRANDIE most likely due to severe sepsis as well. Cardiogenic etiology of current transient deterioration is unlikely as CXR did not reveal any breaking or malposition of PPM and troponin is negative. Patient received 1L NS bolus with resolution of hypotension and his current BP 120/80, HR 66. Patient was started on Meropenem and Linezolid empirically, septic workup was sent, blood culture is pending. ID consult is pending ccm time 40 min
[2017-02-16] MEDS: Meropenem 1g/NS 100mL IVPB 1 GM/100 ML PIGGYBACK IVPB SCH ×2 (15:22→21:11)
[2017-02-16] MEDS: Linezolid 600 mg in D5W 300 ml 600 MG/300 ML BAG IVPB SCH ×2 (15:23→21:12)
--- NOTE | 2017-02-16 18:01 | CP.PCM.CON ---
History of Present Illness - History of Present Illness History of Present Illness: 86 year old male with PMH of CAD S/P CABG, HTN, atrial fibrillation, COPD, DM, obesity with BMI 30 was initially admitted for symptomatic bradycardia. He underwent pacemaker placement yesterday and tolerated the procedure. However, overnight the patient developed fever and the patient also had some respiratory distress. The patient denies headache or dizziness, no chest pain, no nausea or vomiting, no abdominal pain, no diarrhea, no dysuria. Infectious Diseases consult is requested to further evaluate and manage. Review of Systems - Review of Systems All systems: reviewed and no additional remarkable complaints except (as per HPI ) Past Patient History - Infectious Disease Hx of Infectious Diseases: None - Tetanus Immunizations Tetanus Immunization: Up to Date - Past Social History Smoking Status: Former Smoker - CARDIAC Hx Hypertension: Yes Hx Pacemaker: No - PULMONARY Hx Chronic Obstructive Pulmonary Disease (COPD): Yes - NEUROLOGICAL Hx Paralysis: No - HEENT Hx HEENT Problems: No - RENAL Hx Chronic Kidney Disease: Yes - ENDOCRINE/METABOLIC Hx Diabetes Mellitus Type 2: Yes - HEMATOLOGICAL/ONCOLOGICAL Hx Blood Transfusions: No Hx Blood Transfusion Reaction: No - INTEGUMENTARY Hx Dermatological Problems: No - MUSCULOSKELETAL/RHEUMATOLOGICAL Hx Falls: No - GASTROINTESTINAL Hx Gastrointestinal Disorders: No - GENITOURINARY/GYNECOLOGICAL Other/Comment: TURP - PSYCHIATRIC Hx Depression: No Hx Substance Use: No - SURGICAL HISTORY Hx Coronary Stent: Yes - ANESTHESIA Hx Anesthesia Reactions: No Hx Malignant Hyperthermia: No Meds Allergies/Adverse Reactions: Allergies Allergy/AdvReac Type Severity Reaction Status Date / Time pentazocine Allergy RASH Verified 02/12/17 13:02 - Medications Medications: Current Medications Acetaminophen (Tylenol 325mg Tab) 650 mg PO Q6H PRN PRN Reason: for pain Last Admin: 02/16/17 08:45 Dose: 650 mg Albuterol Sulfate (Albuterol 0.083% Inhal Ros (2.5 Mg/3 Ml) Ud) 2.5 mg IH [id number] PRN PRN Reason: Shortness of Breath Amlodipine Besylate (Norvasc) 10 mg PO DAILY [facility] Last Admin: 02/16/17 09:11 Dose: Not Given Aspirin (Ecotrin) 81 mg PO DAILY [facility] Last Admin: 02/16/17 09:11 Dose: 81 mg Cephalexin Monohydrate (Keflex) 250 mg PO TID ANAHY PRN Reason: Protocol Stop: 02/19/17 23:59 Last Admin: 02/16/17 09:07 Dose: 250 mg Gabapentin (Neurontin) 100 mg PO BID ANAHY PRN Reason: Protocol Last Admin: 02/16/17 09:07 Dose: 100 mg Hydralazine HCl (Apresoline) 10 mg PO QID PRN PRN Reason: for SBP>170 and Diastolic>100 Hydrochlorothiazide (Microzide) 12.5 mg PO MoWeFr@1000 ANAHY Last Admin: 02/15/17 14:43 Dose: 12.5 mg Sodium Chloride (Sodium Chloride 0.9%) 1,000 mls @ 999 mls/hr IV .Q1H1M STA Stop: 02/16/17 12:08 Meropenem 1g/NS 100mL IVPB (Meropenem 1g/Ns 100ml Ivpb) 1 gm in 100 mls @ 100 mls/hr IVPB Q12 ANAHY PRN Reason: Protocol Stop: 02/23/17 11:16 Linezolid (Zyvox 600mg/300ml D5w) 600 mg in 300 mls @ 200 mls/hr IVPB Q12 ANAHY PRN Reason: Protocol Stop: 02/23/17 11:16 Insulin Human Regular (Humulin R Low) 0 units SC ACHS ANAHY PRN Reason: Protocol Last Admin: 02/16/17 08:10 Dose: Not Given Morphine Sulfate (Morphine) 2 mg IVP Q4H PRN PRN Reason: Pain, severe (8-10) Last Admin: 02/13/17 06:25 Dose: 2 mg Home Med- ( Ranolazine [Ranexa] 500 Mg) 500 mg PO BID [facility] Last Admin: 02/16/17 09:05 Dose: 500 mg Phenazopyridine HCl (Pyridium) 100 mg PO [facility] Stop: 02/17/17 18:50 Polyethylene Glycol (Miralax) 17 gm PO DAILY [facility] Last Admin: 02/16/17 09:07 Dose: 17 gm Simethicone (Mylicon Chew Tab) 80 mg PO [facility] PRN PRN Reason: GI distress Last Admin: 02/15/17 16:00 Dose: 80 mg Tamsulosin HCl (Flomax) 0.4 mg PO DAILY [facility] Last Admin: 02/16/17 09:06 Dose: 0.4 mg Physical Exam - Constitutional Appears: Chronically Ill - Head Exam Head Exam: NORMAL INSPECTION - ENT Exam ENT Exam: Mucous Membranes Moist - Neck Exam Neck exam: Negative for: Lymphadenopathy, Meningismus - Respiratory Exam Respiratory Exam: Decreased Breath Sounds - Cardiovascular Exam Cardiovascular Exam: +S1, +S2 - GI/Abdominal Exam GI & Abdominal Exam: Soft. absent: Tenderness Results - Vital Signs Recent Vital Signs: Last Vital Signs Temp 97.6 F 02/16/17 04:00 Pulse 66 02/16/17 09:10 Resp 19 02/16/17 09:09 BP 98/53 L 02/16/17 09:11 Pulse Ox 98 02/16/17 09:10 - Labs Result Diagrams: 02/16/17 05:20 02/16/17 05:20 Labs: Laboratory Results - last 24 hr 02/15/17 02/15/17 02/15/17 15:57 16:44 21:32 WBC RBC Hgb Hct MCV MCH MCHC RDW Plt Count MPV Gran % Lymph % (Auto) [place] % (Auto) Eos % (Auto) Baso % (Auto) Gran # Lymph # [place] # Eos # Baso # PT INR APTT pCO2 pO2 HCO3 ABG pH ABG Total CO2 ABG O2 Saturation ABG Base Excess ABG Potassium Glucose Lactate FiO2 Sodium Potassium Chloride Carbon Dioxide Anion Gap BUN Creatinine Est GFR ( Amer) Est GFR (Non-Af Amer) POC Glucose (mg/dL) 247 H 180 H Random Glucose Calcium Phosphorus Magnesium Total Bilirubin AST ALT Alkaline Phosphatase Total Protein Albumin Globulin Albumin/Globulin Ratio Arterial Blood Potassium Urine Color Yellow Urine Appearance Cloudy Urine pH 6.0 Ur Specific Freeman 1.010 Urine Protein Negative Urine Glucose (UA) Negative Urine Ketones Negative Urine Blood Moderate H Urine Nitrate Negative Urine Bilirubin Negative Urine Urobilinogen 0.2 Ur Leukocyte Esterase Trace H Urine RBC 1 - 3 Urine WBC 10 - 15 Ur Epithelial Cells 0 - 2 Urine Bacteria Many 02/16/17 02/16/17 02/16/17 05:20 05:20 05:20 WBC 14.3 H D RBC 4.29 Hgb 13.2 L Hct 39.2 L MCV 91.4 MCH 30.8 MCHC 33.7 RDW 15.0 H Plt Count 109 L MPV 9.9 Gran % 89.3 H Lymph % (Auto) 4.6 L [place] % (Auto) 5.9 Eos % (Auto) 0.1 L Baso % (Auto) 0.1 Gran # 12.74 H Lymph # 0.7 L [place] # 0.8 H Eos # 0.0 Baso # 0.01 PT 12.5 H INR 1.16 H APTT 34.0 H pCO2 pO2 HCO3 ABG pH ABG Total CO2 ABG O2 Saturation ABG Base Excess ABG Potassium Glucose Lactate FiO2 Sodium 137 Potassium 4.8 Chloride 100 Carbon Dioxide 24 Anion Gap 18 BUN 33 H Creatinine 1.6 H Est GFR ( Amer) 50 Est GFR (Non-Af Amer) 41 POC Glucose (mg/dL) Random Glucose 158 H Calcium 9.1 Phosphorus 4.2 Magnesium 1.8 Total Bilirubin 1.6 H AST 25 ALT 30 Alkaline Phosphatase 56 Total Protein 6.2 Albumin 3.6 Globulin 2.6 Albumin/Globulin Ratio 1.4 Arterial Blood Potassium Urine Color Urine Appearance Urine pH Ur Specific Freeman Urine Protein Urine Glucose (UA) Urine Ketones Urine Blood Urine Nitrate Urine Bilirubin Urine Urobilinogen Ur Leukocyte Esterase Urine RBC Urine WBC Ur Epithelial Cells Urine Bacteria 02/16/17 02/16/17 02/16/17 07:35 10:18 11:30 WBC RBC Hgb Hct MCV MCH MCHC RDW Plt Count MPV Gran % Lymph % (Auto) [place] % (Auto) Eos % (Auto) Baso % (Auto) Gran # Lymph # [place] # Eos # Baso # PT INR APTT pCO2 31 L pO2 58.0 L HCO3 19.6 L ABG pH 7.41 ABG Total CO2 20.6 L ABG O2 Saturation 93.3 L ABG Base Excess -4.0 L ABG Potassium 3.7 Glucose 201 H Lactate 1.6 FiO2 32.0 Sodium 130.0 L Potassium Chloride 106.0 Carbon Dioxide Anion Gap BUN Creatinine Est GFR ( Amer) Est GFR (Non-Af Amer) POC Glucose (mg/dL) 148 H 272 H Random Glucose Calcium Phosphorus Magnesium Total Bilirubin AST ALT Alkaline Phosphatase Total Protein Albumin Globulin Albumin/Globulin Ratio Arterial Blood Potassium 3.7 Urine Color Urine Appearance Urine pH Ur Specific Freeman Urine Protein Urine Glucose (UA) Urine Ketones Urine Blood Urine Nitrate Urine Bilirubin Urine Urobilinogen Ur Leukocyte Esterase Urine RBC Urine WBC Ur Epithelial Cells Urine Bacteria Assessment & Plan - Assessment and Plan (Free Text) Plan: Assessment Systemic Inflammatory Response Syndrome, R/O sepsis source to be determined S/P permanent pacemaker placement CAD S/P CABG HTN atrial fibrillation COPD DM obesity with BMI 30 Plan Started patient on Zyvox and Merrem pending blood and urine cx, CXR, PCT will monitor clinically Patient is in clinical condition
--- NOTE | 2017-02-16 20:03 | VASCULAR ---
PROCEDURE: Ultrasound and fluoroscopically placed right upper extremity PICC line. HISTORY: Abscess. Limited IV access. Needs PICC line PHYSICIAN(S): Fercho Shelley MD. TECHNIQUE: The relative risks and indications of the procedure were explained to the patient and consent obtained. The patient was placed supine on the arteriogram table and the right arm prepped and draped in the usual sterile fashion. A tourniquet was applied to the right axilla. 1% Xylocaine was used to anesthetize the skin and soft tissues at the puncture site above the elbow. The right basilic vein was punctured under direct ultrasound guidance with a micropuncture set. A 0.018 guidewire was advanced centrally and used to measure the length to the SVC/RA junction. A 5 Maldivian single-lumen PICC line 45 cm long was advanced to the SVC/RA junction. The catheter was flushed and secured. The patient tolerated the procedure well. IMPRESSION: 1. Ultrasound and fluoroscopically placed right upper extremity PICC line. A 5 [place]divian single-lumen PICC line 45 cm long was advanced to the SVC/RA junction.
[2017-02-17 06:30] LABS: MEAN CORPUSCULAR HEMOGLOBIN 30.8 pg (25.0-35.0); MEAN CORPUSCULAR HGB CONC 34.2 g/dl (31.0-37.0); MEAN PLATELET VOLUME 9.9 fl (7.0-11.0); PLATELET COUNT 70 10^3/uL (120.0-450.0); WHITE BLOOD COUNT 12.8 10^3/ul (4.5-11.0)
[2017-02-17 06:43] LABS: INR 1.21 (0.93-1.08); PARTIAL THROMBOPLASTIN TIME 38.1 Seconds (23.7-30.8); PROTHROMBIN TIME 13.1 Seconds (9.9-11.8)
[2017-02-17 06:53] LABS: ALB/GLOB RATIO 1.2 (1.1-1.8); CALCIUM 8.2 mg/dL (8.4-10.5)
[2017-02-17 07:39] LABS: BAND 5 % (0-2); LYMPHOCYTE 3 % (22.0-35.0); MONOCYTE 6 % (1.0-6.0); NEUTROPHIL 83 % (50.0-70.0); PLATELET ESTIMATE LOW (NORMAL)
[2017-02-17] MEDS: Insulin Reg-LOW-Coverage SC SCH ×4 (08:29→21:45)
[2017-02-17] MEDS: POLYETHYLENE GLYCOL 3350 17 GM/Dose PACKET PO SCH ×2 (08:43→09:41)
[2017-02-17] MEDS: Meropenem 1g/NS 100mL IVPB 1 GM/100 ML PIGGYBACK IVPB SCH ×3 (08:43→22:25)
[2017-02-17] MEDS: RANOLAZINE 500 MG PO SCH ×2 (09:41→18:42)
[2017-02-17] MEDS: Linezolid 600 mg in D5W 300 ml 600 MG/300 ML BAG IVPB SCH ×2 (09:42→21:16)
--- NOTE | 2017-02-17 09:47 | CP.PCM.PN ---
Subjective - Date & Time of Evaluation Date of Evaluation: 02/17/17 Time of Evaluation: 07:45 - Subjective Subjective: feel a little better, but still whole body hurts. Objective - Vital Signs/Intake and Output Vital Signs (last 24 hours): Temp Pulse Resp BP Pulse Ox 98.6 F 60 22 102/59 L 97 02/17/17 04:00 02/17/17 06:00 02/17/17 06:00 02/17/17 06:00 02/17/17 06:00 Intake and Output: 02/17/17 02/17/17 06:59 18:59 Intake Total 520 Output Total 400 Balance 120 - Medications Medications: Current Medications Acetaminophen (Tylenol 325mg Tab) 650 mg PO Q6H PRN PRN Reason: for pain Last Admin: 02/17/17 08:42 Dose: 650 mg Albuterol Sulfate (Albuterol 0.083% Inhal Ros (2.5 Mg/3 Ml) Ud) 2.5 mg IH [id number] PRN PRN Reason: Shortness of Breath Amlodipine Besylate (Norvasc) 10 mg PO DAILY [facility] Last Admin: 02/16/17 09:11 Dose: Not Given Aspirin (Ecotrin) 81 mg PO DAILY [facility] Last Admin: 02/17/17 08:42 Dose: 81 mg Cephalexin Monohydrate (Keflex) 250 mg PO TID ANAHY PRN Reason: Protocol Stop: 02/19/17 23:59 Last Admin: 02/16/17 09:07 Dose: 250 mg Gabapentin (Neurontin) 100 mg PO BID [facility] PRN Reason: Protocol Last Admin: 02/16/17 09:07 Dose: 100 mg Hydralazine HCl (Apresoline) 10 mg PO QID PRN PRN Reason: for SBP>170 and Diastolic>100 Hydrochlorothiazide (Microzide) 12.5 mg PO MoWeFr@1000 [facility] Last Admin: 02/15/17 14:43 Dose: 12.5 mg Meropenem 1g/NS 100mL IVPB (Meropenem 1g/Ns 100ml Ivpb) 1 gm in 100 mls @ 100 mls/hr IVPB Q12 ANAHY PRN Reason: Protocol Stop: 02/23/17 11:16 Last Admin: 02/17/17 08:43 Dose: 100 mls/hr Linezolid (Zyvox 600mg/300ml D5w) 600 mg in 300 mls @ 200 mls/hr IVPB Q12 ANAHY PRN Reason: Protocol Stop: 02/23/17 11:16 Last Admin: 02/16/17 21:12 Dose: 200 mls/hr Insulin Human Regular (Humulin R Low) 0 units SC ACHS ANAHY PRN Reason: Protocol Last Admin: 02/17/17 08:29 Dose: Not Given Home Med- ( Ranolazine [Ranexa] 500 Mg) 500 mg PO BID [facility] Last Admin: 02/16/17 18:07 Dose: 500 mg Polyethylene Glycol (Miralax) 17 gm PO DAILY [facility] Last Admin: 02/17/17 08:43 Dose: 17 gm Simethicone (Mylicon Chew Tab) 80 mg PO [facility] PRN PRN Reason: GI distress Last Admin: 02/15/17 16:00 Dose: 80 mg Tamsulosin HCl (Flomax) 0.4 mg PO DAILY [facility] Last Admin: 02/17/17 08:42 Dose: 0.4 mg - Labs Labs: 02/17/17 05:30 02/17/17 05:30 PT 13.1 Seconds (9.9-11.8) H 02/17/17 05:30 INR 1.21 (0.93-1.08) H 02/17/17 05:30 APTT 38.1 Seconds (23.7-30.8) H 02/17/17 05:30 - Constitutional Appears: Non-toxic, No Acute Distress - Head Exam Head Exam: ATRAUMATIC - Eye Exam Eye Exam: Conjunctival injection - ENT Exam ENT Exam: Mucous Membranes Dry - Neck Exam Neck Exam: Full ROM - Respiratory Exam Additional comments: Decreas air entry at bases Left.>Right - Cardiovascular Exam Cardiovascular Exam: REGULAR RHYTHM - GI/Abdominal Exam GI & Abdominal Exam: Soft - Extremities Exam Extremities Exam: Normal Inspection Assessment and Plan - Assessment and Plan (Free Text) Assessment: possible sepsis, source possible Pneumonia or UTI UTI right lower lobe pneumonia CAD. CABG SSS S/p PPM Plan: Continue ICU monitoring broad spectrum Abx F/u Blood , Urine C&S. ID F/U.
--- NOTE | 2017-02-17 10:13 | CP.PCM.PN ---
Subjective - Date & Time of Evaluation Date of Evaluation: 02/17/17 Time of Evaluation: 09:00 - Subjective Subjective: Comfortable in bed, not in distress, currently afebrile, still some cough. Objective - Vital Signs/Intake and Output Vital Signs (last 24 hours): Temp Pulse Resp BP Pulse Ox 97.3 F L 65 22 96/65 L 97 02/17/17 02:25 02/17/17 03:01 02/17/17 03:01 02/17/17 03:01 02/17/17 03:01 Intake and Output: 02/16/17 02/17/17 18:59 06:59 Intake Total 1660 Output Total 500 Balance 1160 - Medications Medications: Current Medications Acetaminophen (Tylenol 325mg Tab) 650 mg PO Q6H PRN PRN Reason: for pain Last Admin: 02/17/17 02:25 Dose: 650 mg Albuterol Sulfate (Albuterol 0.083% Inhal Ros (2.5 Mg/3 Ml) Ud) 2.5 mg IH [id number] PRN PRN Reason: Shortness of Breath Amlodipine Besylate (Norvasc) 10 mg PO DAILY [facility] Last Admin: 02/16/17 09:11 Dose: Not Given Aspirin (Ecotrin) 81 mg PO DAILY [facility] Last Admin: 02/16/17 09:11 Dose: 81 mg Cephalexin Monohydrate (Keflex) 250 mg PO TID [facility]NAHY PRN Reason: Protocol Stop: 02/19/17 23:59 Last Admin: 02/16/17 09:07 Dose: 250 mg Gabapentin (Neurontin) 100 mg PO BID [facility] PRN Reason: Protocol Last Admin: 02/16/17 09:07 Dose: 100 mg Hydralazine HCl (Apresoline) 10 mg PO QID PRN PRN Reason: for SBP>170 and Diastolic>100 Hydrochlorothiazide (Microzide) 12.5 mg PO MoWeFr@1000 [facility] Last Admin: 02/15/17 14:43 Dose: 12.5 mg Meropenem 1g/NS 100mL IVPB (Meropenem 1g/Ns 100ml Ivpb) 1 gm in 100 mls @ 100 mls/hr IVPB Q12 ANAHY PRN Reason: Protocol Stop: 02/23/17 11:16 Last Admin: 02/16/17 21:11 Dose: 100 mls/hr Linezolid (Zyvox 600mg/300ml D5w) 600 mg in 300 mls @ 200 mls/hr IVPB Q12 ANAHY PRN Reason: Protocol Stop: 02/23/17 11:16 Last Admin: 02/16/17 21:12 Dose: 200 mls/hr Insulin Human Regular (Humulin R Low) 0 units SC ACHS ANAHY PRN Reason: Protocol Last Admin: 02/16/17 22:00 Dose: Not Given Home Med- ( Ranolazine [Ranexa] 500 Mg) 500 mg PO BID [facility] Last Admin: 02/16/17 18:07 Dose: 500 mg Polyethylene Glycol (Miralax) 17 gm PO DAILY [facility] Last Admin: 02/16/17 09:07 Dose: 17 gm Simethicone (Mylicon Chew Tab) 80 mg PO [facility] PRN PRN Reason: GI distress Last Admin: 02/15/17 16:00 Dose: 80 mg Tamsulosin HCl (Flomax) 0.4 mg PO DAILY [facility] Last Admin: 02/16/17 09:06 Dose: 0.4 mg - Labs Labs: 02/16/17 05:20 02/16/17 05:20 PT 12.5 Seconds (9.9-11.8) H 02/16/17 05:20 INR 1.16 (0.93-1.08) H 02/16/17 05:20 APTT 34.0 Seconds (23.7-30.8) H 02/16/17 05:20 - Constitutional Appears: Non-toxic, No Acute Distress - Head Exam Head Exam: NORMAL INSPECTION - Neck Exam Neck Exam: absent: Meningismus - Respiratory Exam Respiratory Exam: Decreased Breath Sounds - Cardiovascular Exam Cardiovascular Exam: +S1, +S2 - GI/Abdominal Exam GI & Abdominal Exam: Soft. absent: Tenderness Assessment and Plan - Assessment and Plan (Free Text) Plan: Assessment sepsis due to left sided healthcare-associated pneumonia with possible gram positive cocci and/or gram negative bacilli S/P permanent pacemaker placement CAD S/P CABG HTN atrial fibrillation COPD DM obesity with BMI 30 Plan continue Zyvox and Merrem day 2 pending final blood and urine cx; reviewed CT chest which showed the infiltrates in the left lung will monitor clinically
[2017-02-17] MEDS ORDERED: Sodium Chloride 0.9% 1,000 ML IV STA (15:13)
--- NOTE | 2017-02-17 15:20 | CP.PCM.PN ---
<GRISEL REIS - Last Filed: 02/17/17 15:46> Subjective - Date & Time of Evaluation Date of Evaluation: 02/17/17 Time of Evaluation: 10:00 - Subjective Subjective: PGY1 ICU Progress Note: Pt seen and examined at bedside. No acute events overnight. Denies fever, chills , n/v/d, abdominal pain, urinary burning. + BM yesterday. Objective - Vital Signs/Intake and Output Vital Signs (last 24 hours): Temp Pulse Resp BP Pulse Ox 97.1 F L 65 22 105/52 L 96 02/17/17 12:00 02/17/17 13:00 02/17/17 13:00 02/17/17 13:00 02/17/17 13:00 Intake and Output: 02/17/17 02/17/17 06:59 18:59 Intake Total 520 Output Total 400 Balance 120 - Medications Medications: Current Medications Acetaminophen (Tylenol 325mg Tab) 650 mg PO Q6H PRN PRN Reason: for pain Last Admin: 02/17/17 08:42 Dose: 650 mg Albuterol Sulfate (Albuterol 0.083% Inhal Ros (2.5 Mg/3 Ml) Ud) 2.5 mg IH [id number] PRN PRN Reason: Shortness of Breath Amlodipine Besylate (Norvasc) 10 mg PO DAILY [facility] Last Admin: 02/16/17 09:11 Dose: Not Given Aspirin (Ecotrin) 81 mg PO DAILY [facility] Last Admin: 02/17/17 09:41 Dose: Not Given Cephalexin Monohydrate (Keflex) 250 mg PO TID [facility] PRN Reason: Protocol Stop: 02/19/17 23:59 Last Admin: 02/16/17 09:07 Dose: 250 mg Gabapentin (Neurontin) 100 mg PO BID [facility] PRN Reason: Protocol Last Admin: 02/16/17 09:07 Dose: 100 mg Hydralazine HCl (Apresoline) 10 mg PO QID PRN PRN Reason: for SBP>170 and Diastolic>100 Hydrochlorothiazide (Microzide) 12.5 mg PO MoWeFr@1000 [facility] Last Admin: 02/15/17 14:43 Dose: 12.5 mg Meropenem 1g/NS 100mL IVPB (Meropenem 1g/Ns 100ml Ivpb) 1 gm in 100 mls @ 100 mls/hr IVPB Q12 ANAHY PRN Reason: Protocol Stop: 02/23/17 11:16 Last Admin: 02/17/17 09:41 Dose: Not Given Linezolid (Zyvox 600mg/300ml D5w) 600 mg in 300 mls @ 200 mls/hr IVPB Q12 ANAHY PRN Reason: Protocol Stop: 02/23/17 11:16 Last Admin: 02/17/17 09:42 Dose: 200 mls/hr Insulin Human Regular (Humulin R Low) 0 units SC ACHS ANAHY PRN Reason: Protocol Last Admin: 02/17/17 12:26 Dose: 2 units Home Med- ( Ranolazine [Ranexa] 500 Mg) 500 mg PO BID [facility] Last Admin: 02/17/17 09:41 Dose: 500 mg Polyethylene Glycol (Miralax) 17 gm PO DAILY [facility] Last Admin: 02/17/17 09:41 Dose: Not Given Simethicone (Mylicon Chew Tab) 80 mg PO [facility] PRN PRN Reason: GI distress Last Admin: 02/15/17 16:00 Dose: 80 mg Tamsulosin HCl (Flomax) 0.4 mg PO DAILY [facility] Last Admin: 02/17/17 09:41 Dose: Not Given - Labs Labs: 02/17/17 05:30 02/17/17 05:30 PT 13.1 Seconds (9.9-11.8) H 02/17/17 05:30 INR 1.21 (0.93-1.08) H 02/17/17 05:30 APTT 38.1 Seconds (23.7-30.8) H 02/17/17 05:30 - Constitutional Appears: Well, No Acute Distress - Head Exam Head Exam: ATRAUMATIC, NORMOCEPHALIC - Eye Exam Eye Exam: PERRL - ENT Exam ENT Exam: Mucous Membranes Moist - Respiratory Exam Respiratory Exam: Decreased Breath Sounds - Cardiovascular Exam Cardiovascular Exam: RRR, +S1, +S2 Additional comments: paced rhythm - GI/Abdominal Exam GI & Abdominal Exam: Normal Bowel Sounds. absent: Tenderness Additional comments: morbidly obese. - Extremities Exam Extremities Exam: absent: Calf Tenderness, Pedal Edema - Neurological Exam Neurological Exam: Alert, Awake, Oriented x3 - Psychiatric Exam Psychiatric exam: Depressed, Normal Mood - Skin Skin Exam: Dry, Intact Assessment and Plan - Assessment and Plan (Free Text) Assessment: 86M with PMH afib, HTN, CAD, CKD, admitted for symptomatic bradycardia 2/2 intrinsic electrical cardiac dysfunction, s/p PPM 02/15, readmitted to ICU for severe sepsis 2/2 likely UTI 2/2 E.coli. Plan: Neuro: AAXO3 currently. CT head shows no acute changes. Cont to monitor CV: Normotensive today. Cont to hold antihypertensives. Cont to monitor PPM placed 02/15. HR 60's, paced. Site nonerythematous, nontender, no oozing of blood. Resp: on NC. maintain SpO2>90% Nephro: Elevated BUN/Cr 40/1.5, decreased UO, give 1L NS. s/p PICC line insertion. Maintain electrolytes and euvolemia. Hx of urinary retention/bph. C/w Flomax GI: Protonix. on heart healthy diet. On Miralax and simethicone prn. ID: tmax 100F, leukocytosis improving 14.3->12.8, c/w Merrem and Zyvox D2, per ID. Ucx shows E.coli F/u blood cultures, sputum culture procalcitonin 2.01 CT chest shows small LLbase infiltrate. CT abd/pelvis shows no acute changes. Endo: Maintain euglycemia Case discussed with PGY2 and attending, Dr Kaur. Grisel Reis, PGY1 <Vincent BARLOW,Marlena H - Last Filed: 02/17/17 16:40> Objective - Vital Signs/Intake and Output Vital Signs (last 24 hours): Temp Pulse Resp BP Pulse Ox 97.1 F L 65 22 105/52 L 96 02/17/17 12:00 02/17/17 13:00 02/17/17 13:00 02/17/17 13:00 02/17/17 13:00 Intake and Output: 02/17/17 02/17/17 06:59 18:59 Intake Total 520 Output Total 400 Balance 120 - Medications Medications: Current Medications Acetaminophen (Tylenol 325mg Tab) 650 mg PO Q6H PRN PRN Reason: for pain Last Admin: 02/17/17 16:21 Dose: 650 mg Albuterol Sulfate (Albuterol 0.083% Inhal Ros (2.5 Mg/3 Ml) Ud) 2.5 mg IH [id number] PRN PRN Reason: Shortness of Breath Amlodipine Besylate (Norvasc) 10 mg PO DAILY [facility] Last Admin: 02/16/17 09:11 Dose: Not Given Aspirin (Ecotrin) 81 mg PO DAILY [facility] Last Admin: 02/17/17 09:41 Dose: Not Given Cephalexin Monohydrate (Keflex) 250 mg PO TID [facility] PRN Reason: Protocol Stop: 02/19/17 23:59 Last Admin: 02/16/17 09:07 Dose: 250 mg Gabapentin (Neurontin) 100 mg PO BID [facility] PRN Reason: Protocol Last Admin: 02/16/17 09:07 Dose: 100 mg Hydralazine HCl (Apresoline) 10 mg PO QID PRN PRN Reason: for SBP>170 and Diastolic>100 Hydrochlorothiazide (Microzide) 12.5 mg PO MoWeFr@1000 [facility] Last Admin: 02/15/17 14:43 Dose: 12.5 mg Meropenem 1g/NS 100mL IVPB (Meropenem 1g/Ns 100ml Ivpb) 1 gm in 100 mls @ 100 mls/hr IVPB Q12 [facility] PRN Reason: Protocol Stop: 02/23/17 11:16 Last Admin: 02/17/17 09:41 Dose: Not Given Linezolid (Zyvox 600mg/300ml D5w) 600 mg in 300 mls @ 200 mls/hr IVPB Q12 [facility] PRN Reason: Protocol Stop: 02/23/17 11:16 Last Admin: 02/17/17 09:42 Dose: 200 mls/hr Insulin Human Regular (Humulin R Low) 0 units SC [facility] PRN Reason: Protocol Last Admin: 02/17/17 12:26 Dose: 2 units Home Med- ( Ranolazine [Ranexa] 500 Mg) 500 mg PO BID [facility] Last Admin: 02/17/17 09:41 Dose: 500 mg Polyethylene Glycol (Miralax) 17 gm PO DAILY [facility] Last Admin: 02/17/17 09:41 Dose: Not Given Simethicone (Mylicon Chew Tab) 80 mg PO [facility] PRN PRN Reason: GI distress Last Admin: 02/15/17 16:00 Dose: 80 mg Tamsulosin HCl (Flomax) 0.4 mg PO DAILY [facility] Last Admin: 02/17/17 09:41 Dose: Not Given - Labs Labs: 02/17/17 05:30 02/17/17 05:30 PT 13.1 Seconds (9.9-11.8) H 02/17/17 05:30 INR 1.21 (0.93-1.08) H 02/17/17 05:30 APTT 38.1 Seconds (23.7-30.8) H 02/17/17 05:30 Attending/Attestation - Attestation I have personally seen and examined this patient.: Yes I have fully participated in the care of the patient.: Yes I have reviewed all pertinent clinical information, including history, physical exam and plan: Yes Notes (Text): 02/17/17 16:38 86 y/o M w/ AMS secondary to UTI Urinary retention w/ BPH in need to catherization . On empiric abx for gram - in the urine. Post op from pacemaker placement and currently being paced. Anti htn medications to resume. PT/OT Cardiology reccs to be followed. dvt p cc time 45 min
[2017-02-17] MEDS: Simethicone 80 mg Chewtab PO PRN (19:54)
[2017-02-17] MEDS ORDERED: Alum-Mag Hydrox-Simethicone Susp (30 mL) PO ONE (23:13)
--- NOTE | 2017-02-18 02:18 | CP.PCM.PN ---
Subjective - Date & Time of Evaluation Date of Evaluation: 02/18/17 Time of Evaluation: 02:16 - Subjective Subjective: S: Patient was seen for heart burn. Received Maalox 30 CC x 1. Is resting comfortably now. Pertinent medical record was reviewed. O: Last Vital Signs 3 Temp 97.6 F 02/17/17 20:00 Pulse 61 02/17/17 20:00 Resp 25 H 02/17/17 20:00 BP 99/59 L 02/17/17 20:00 Pulse Ox 99 02/17/17 20:00 Not in distress. LUNGS:Normal breathing pattern. A:Heart burn. Low blood pressure reading. P:Maalox 30 cc PO helped him. Objective - Vital Signs/Intake and Output Vital Signs (last 24 hours): Temp Pulse Resp BP Pulse Ox 97.6 F 61 25 H 99/59 L 99 02/17/17 20:00 02/17/17 20:00 02/17/17 20:00 02/17/17 20:00 02/17/17 20:00 Intake and Output: 02/17/17 02/18/17 18:59 06:59 Intake Total 2250 Output Total 550 Balance 1700 - Medications Medications: Current Medications Acetaminophen (Tylenol 325mg Tab) 650 mg PO Q6H PRN PRN Reason: for pain Last Admin: 02/17/17 23:21 Dose: 650 mg Albuterol Sulfate (Albuterol 0.083% Inhal Ros (2.5 Mg/3 Ml) Ud) 2.5 mg IH [id number] PRN PRN Reason: Shortness of Breath Amlodipine Besylate (Norvasc) 10 mg PO DAILY [facility] Last Admin: 02/16/17 09:11 Dose: Not Given Aspirin (Ecotrin) 81 mg PO DAILY [facility] Last Admin: 02/17/17 09:41 Dose: Not Given Cephalexin Monohydrate (Keflex) 250 mg PO TID [facility] PRN Reason: Protocol Stop: 02/19/17 23:59 Last Admin: 02/16/17 09:07 Dose: 250 mg Gabapentin (Neurontin) 100 mg PO BID [facility] PRN Reason: Protocol Last Admin: 02/17/17 18:50 Dose: Not Given Hydralazine HCl (Apresoline) 10 mg PO QID PRN PRN Reason: for SBP>170 and Diastolic>100 Hydrochlorothiazide (Microzide) 12.5 mg PO MoWeFr@1000 [facility] Last Admin: 02/15/17 14:43 Dose: 12.5 mg Meropenem 1g/NS 100mL IVPB (Meropenem 1g/Ns 100ml Ivpb) 1 gm in 100 mls @ 100 mls/hr IVPB Q12 [facility] PRN Reason: Protocol Stop: 02/23/17 11:16 Last Admin: 02/17/17 22:25 Dose: 100 mls/hr Linezolid (Zyvox 600mg/300ml D5w) 600 mg in 300 mls @ 200 mls/hr IVPB Q12 [facility] PRN Reason: Protocol Stop: 02/23/17 11:16 Last Admin: 02/17/17 21:16 Dose: 200 mls/hr Insulin Human Regular (Humulin R Low) 0 units SC ACHS [facility] PRN Reason: Protocol Last Admin: 02/17/17 21:45 Dose: Not Given Home Med- ( Ranolazine [Ranexa] 500 Mg) 500 mg PO BID [facility] Last Admin: 02/17/17 18:42 Dose: 500 mg Polyethylene Glycol (Miralax) 17 gm PO DAILY [facility] Last Admin: 02/17/17 09:41 Dose: Not Given Simethicone (Mylicon Chew Tab) 80 mg PO [facility] PRN PRN Reason: GI distress Last Admin: 02/17/17 19:54 Dose: 80 mg Tamsulosin HCl (Flomax) 0.4 mg PO DAILY [facility] Last Admin: 02/17/17 09:41 Dose: Not Given - Labs Labs: 02/17/17 05:30 02/17/17 05:30 PT 13.1 Seconds (9.9-11.8) H 02/17/17 05:30 INR 1.21 (0.93-1.08) H 02/17/17 05:30 APTT 38.1 Seconds (23.7-30.8) H 02/17/17 05:30
[2017-02-18] MEDS: Insulin Reg-LOW-Coverage SC SCH ×4 (08:00→22:01)
[2017-02-18] MEDS: POLYETHYLENE GLYCOL 3350 17 GM/Dose PACKET PO SCH (09:20)
[2017-02-18] MEDS: Linezolid 600 mg in D5W 300 ml 600 MG/300 ML BAG IVPB SCH ×2 (09:21→21:59)
[2017-02-18] MEDS: Meropenem 1g/NS 100mL IVPB 1 GM/100 ML PIGGYBACK IVPB SCH ×2 (09:21→21:46)
[2017-02-18] MEDS: RANOLAZINE 500 MG PO SCH ×2 (09:22→17:56)
--- NOTE | 2017-02-18 11:12 | CP.PCM.CON ---
<Huyen Cordon - Last Filed: 02/18/17 14:36> History of Present Illness - History of Present Illness History of Present Illness: PGY2- Neurology progress note for Dr Sutherland. Reason for consult: LE weakness and back pain . Patient is an 86 y/o with pmh of CAD s/p CABG, AFIB, DM2, COPD, BPH with h/o turf, moderate L3-L4 and L4-L5 spinal stenosis whom initially presented to [facility] with dizziness and was found to have symptomatic bradycardia s/p PPM on 02/15. Patient's hospital stay was complicated by sepsis with MOD 2nd to ecoli induced UTI. Neurology is being consulted for lower extremities weakness and back pain. Patient had CT head on 02/16 which revealed no acute ischemic changes. Patient reports he fell a year ago, walks with some difficulty at baseline, but doesn't currently use a cane. Patient denies focal weakness, denies headache, denies cp or sob. Patient is c/ o b/l groin pain, worst when patient was trying to stand up to ambulate. Patient denies neck pain, admits to lower back pain which patient reported to be chronic, with onset when he fell a year ago. Denies dizziness when standing from lying to seating position. PMH: As stated above PSH: TURF, CABG, Abdominal surgery ( unknown reason) Social: former tobacco, denies alcohol and illicit drug use. Review of Systems - Review of Systems Review of Systems: 12 point ROS reviewed, all negative except as mentioned in HPI. Past Patient History - Infectious Disease Hx of Infectious Diseases: None - Tetanus Immunizations Tetanus Immunization: Up to Date - Past Social History Smoking Status: Former Smoker Alcohol: None Drugs: Denies Home Situation {Lives}: With Family - CARDIAC Hx Hypertension: Yes Hx Pacemaker: No - PULMONARY Hx Chronic Obstructive Pulmonary Disease (COPD): Yes - NEUROLOGICAL Hx Paralysis: No - HEENT Hx HEENT Problems: No - RENAL Hx Chronic Kidney Disease: Yes - ENDOCRINE/METABOLIC Hx Diabetes Mellitus Type 2: Yes - HEMATOLOGICAL/ONCOLOGICAL Hx Blood Transfusions: No Hx Blood Transfusion Reaction: No - INTEGUMENTARY Hx Dermatological Problems: No - MUSCULOSKELETAL/RHEUMATOLOGICAL Hx Falls: No - GASTROINTESTINAL Hx Gastrointestinal Disorders: No - GENITOURINARY/GYNECOLOGICAL Other/Comment: TURP - PSYCHIATRIC Hx Depression: No Hx Substance Use: No - SURGICAL HISTORY Hx Coronary Stent: Yes - ANESTHESIA Hx Anesthesia Reactions: No Hx Malignant Hyperthermia: No Meds Allergies/Adverse Reactions: Allergies Allergy/AdvReac Type Severity Reaction Status Date / Time pentazocine Allergy RASH Verified 02/12/17 13:02 - Medications Medications: Current Medications Acetaminophen (Tylenol 325mg Tab) 650 mg PO Q6H PRN PRN Reason: for pain Last Admin: 02/18/17 06:03 Dose: 650 mg Albuterol Sulfate (Albuterol 0.083% Inhal Ros (2.5 Mg/3 Ml) Ud) 2.5 mg IH [id number] PRN PRN Reason: Shortness of Breath Amlodipine Besylate (Norvasc) 10 mg PO DAILY [facility] Last Admin: 02/16/17 09:11 Dose: Not Given Aspirin (Ecotrin) 81 mg PO DAILY [facility] Last Admin: 02/18/17 09:20 Dose: 81 mg Cephalexin Monohydrate (Keflex) 250 mg PO TID [facility] PRN Reason: Protocol Stop: 02/19/17 23:59 Last Admin: 02/16/17 09:07 Dose: 250 mg Gabapentin (Neurontin) 100 mg PO BID [facility] PRN Reason: Protocol Last Admin: 02/18/17 09:20 Dose: 100 mg Hydralazine HCl (Apresoline) 10 mg PO QID PRN PRN Reason: for SBP>170 and Diastolic>100 Hydrochlorothiazide (Microzide) 12.5 mg PO MoWeFr@1000 [facility] Last Admin: 02/15/17 14:43 Dose: 12.5 mg Meropenem 1g/NS 100mL IVPB (Meropenem 1g/Ns 100ml Ivpb) 1 gm in 100 mls @ 100 mls/hr IVPB Q12 [facility] PRN Reason: Protocol Stop: 02/23/17 11:16 Last Admin: 02/18/17 09:21 Dose: 100 mls/hr Linezolid (Zyvox 600mg/300ml D5w) 600 mg in 300 mls @ 200 mls/hr IVPB Q12 [facility] PRN Reason: Protocol Stop: 02/23/17 11:16 Last Admin: 02/18/17 09:21 Dose: 200 mls/hr Insulin Human Regular (Humulin R Low) 0 units SC ACHS [facility] PRN Reason: Protocol Last Admin: 02/18/17 08:00 Dose: 1 units Home Med- ( Ranolazine [Ranexa] 500 Mg) 500 mg PO BID [facility] Last Admin: 02/18/17 09:22 Dose: 500 mg Polyethylene Glycol (Miralax) 17 gm PO DAILY [facility] Last Admin: 02/18/17 09:20 Dose: 17 gm Simethicone (Mylicon Chew Tab) [address] [facility] PRN PRN Reason: GI distress Last Admin: 02/17/17 19:54 Dose: 80 mg Tamsulosin HCl (Flomax) 0.4 mg PO DAILY [facility] Last Admin: 02/18/17 09:20 Dose: 0.4 mg Physical Exam - Constitutional Appears: No Acute Distress, Chronically Ill - Head Exam Head Exam: ATRAUMATIC, NORMAL INSPECTION, NORMOCEPHALIC - Eye Exam Eye Exam: EOMI, Normal appearance, PERRL. absent: Conjunctival injection, Scleral icterus Pupil Exam: NORMAL ACCOMODATION, PERRL - ENT Exam ENT Exam: Mucous Membranes Moist - Neck Exam Neck exam: Positive for: Normal Inspection. Negative for: Tenderness - Respiratory Exam Respiratory Exam: Clear to Auscultation Bilateral, NORMAL BREATHING PATTERN. absent: Rhonchi, Wheezes, Respiratory Distress, Stridor - Cardiovascular Exam Cardiovascular Exam: Irregular Rhythm, +S1, +S2. absent: Systolic Murmur - GI/Abdominal Exam GI & Abdominal Exam: Distended, Normal Bowel Sounds. absent: Tenderness Additional comments: + abdominal scar. - Extremities Exam Extremities exam: Positive for: pedal edema (Trace edema). Negative for: joint swelling, tenderness Additional comments: + varicosed veins. - Back Exam Back exam: NORMAL INSPECTION, tenderness (L-spine region). absent: muscle spasm - Neurological Exam Neurological exam: Abnormal Gait, Alert, CN II-XII Intact, Oriented x3, Reflexes Normal Additional comments: Speaking in full sentences, awake and alert x3. No facial asymmetry, strong masseter muscle Tongue midline, no atrophy. Normal finger to nose, no pronator drip, plantar reflexes normal. 5/5 flexion and extension motor strength b/l upper and lower extremities. No tremors, no rigidity. + 2 patella, achilles tendon, biceps, and brachioradialis reflexes b/l. Normal DTRs. Sensation to dull objects in the upper extremities and face intact. + gait instability - Psychiatric Exam Psychiatric exam: Normal Affect, Normal Mood - Skin Skin Exam: Dry, Warm Results - Vital Signs Recent Vital Signs: Last Vital Signs Temp 97.1 F L 02/18/17 08:56 Pulse 60 02/18/17 08:56 Resp 20 02/18/17 08:56 BP 110/54 L 02/18/17 08:56 Pulse Ox 98 02/18/17 08:56 - Labs Result Diagrams: 02/18/17 11:30 02/18/17 11:30 Labs: Laboratory Results - last 24 hr 02/16/17 02/17/17 02/17/17 22:44 07:33 11:27 POC Glucose (mg/dL) 177 H 154 H 200 H 02/17/17 02/17/17 02/18/17 16:26 21:42 07:13 POC Glucose (mg/dL) 164 H 198 H 169 H Assessment & Plan - Assessment and Plan (Free Text) Assessment: Patient is an 86 y/o with pmh of CAD s/p CABG, AFIB, DM2, COPD, BPH with h/o turf, moderate L3-L4 and L4-L5 spinal stenosis whom initially presented to [facility] with dizziness and was found to have symptomatic bradycardia s/p PPM on 02/15. Patient's hospital stay was complicated by sepsis with MOD 2nd to ecoli induced UTI. Neurology is being consulted for lower extremities weakness and back pain. Impression: Lower extremities weakness likely 2nd to deconditioned state causing worsening of spinal stenosis. Plan: - PT/OT for deconditioned state - Consider NSAID PRN for pain - Can increase gabapentin dose for neuropathic pain - Continue current medical management - Thank you for consulting Dr Sutherland. Patient, seen, examined, discussed with Dr Sutherland. - Date & Time Date: 02/18/17 Time: 11:05 <Franck Sutherland - Last Filed: 02/18/17 16:00> Meds - Medications Medications: Current Medications Acetaminophen (Tylenol 325mg Tab) 650 mg PO Q6H PRN PRN Reason: for pain Last Admin: 02/18/17 12:07 Dose: 650 mg Albuterol Sulfate (Albuterol 0.083% Inhal Ros (2.5 Mg/3 Ml) Ud) 2.5 mg IH [id number] PRN PRN Reason: Shortness of Breath Amlodipine Besylate (Norvasc) 10 mg PO DAILY [facility] Last Admin: 02/16/17 09:11 Dose: Not Given Aspirin (Ecotrin) 81 mg PO DAILY [facility] Last Admin: 02/18/17 09:20 Dose: 81 mg Cephalexin Monohydrate (Keflex) 250 mg PO TID [facility] PRN Reason: Protocol Stop: 02/19/17 23:59 Last Admin: 02/16/17 09:07 Dose: 250 mg Gabapentin (Neurontin) 100 mg PO BID [facility] PRN Reason: Protocol Last Admin: 02/18/17 09:20 Dose: 100 mg Hydralazine HCl (Apresoline) 10 mg PO QID PRN PRN Reason: for SBP>170 and Diastolic>100 Hydrochlorothiazide (Microzide) 12.5 mg PO MoWeFr@1000 [facility] Last Admin: 02/15/17 14:43 Dose: 12.5 mg Meropenem 1g/NS 100mL IVPB (Meropenem 1g/Ns 100ml Ivpb) 1 gm in 100 mls @ 100 mls/hr IVPB Q12 [facility] PRN Reason: Protocol Stop: 02/23/17 11:16 Last Admin: 02/18/17 09:21 Dose: 100 mls/hr Linezolid (Zyvox 600mg/300ml D5w) 600 mg in 300 mls @ 200 mls/hr IVPB Q12 [facility] PRN Reason: Protocol Stop: 02/23/17 11:16 Last Admin: 02/18/17 09:21 Dose: 200 mls/hr Insulin Human Regular (Humulin R Low) 0 units SC [facility] PRN Reason: Protocol Last Admin: 02/18/17 12:04 Dose: 2 units Home Med- ( Ranolazine [Ranexa] 500 Mg) 500 mg PO BID [facility] Last Admin: 02/18/17 09:22 Dose: 500 mg Oxycodone/Acetaminophen (Percocet 5/325 Mg Tab) 1 tab PO Q4H PRN PRN Reason: Pain, moderate (4-7) Stop: 02/21/17 12:46 Last Admin: 02/18/17 14:15 Dose: 1 tab Polyethylene Glycol (Miralax) 17 gm PO DAILY [facility] Last Admin: 02/18/17 09:20 Dose: 17 gm Simethicone (Mylicon Chew Tab) [address] [facility] PRN PRN Reason: GI distress Last Admin: 02/17/17 19:54 Dose: 80 mg Tamsulosin HCl (Flomax) 0.4 mg PO DAILY [facility] Last Admin: 02/18/17 09:20 Dose: 0.4 mg Results - Vital Signs Recent Vital Signs: Last Vital Signs Temp 97.1 F L 02/18/17 08:56 Pulse 60 02/18/17 08:56 Resp 20 02/18/17 08:56 BP 110/54 L 02/18/17 08:56 Pulse Ox 98 02/18/17 08:56 - Labs Result Diagrams: 02/18/17 11:30 02/18/17 11:30 Labs: Laboratory Results - last 24 hr 02/16/17 02/17/17 02/17/17 22:44 16:26 21:42 WBC RBC Hgb Hct MCV MCH MCHC RDW Plt Count MPV Gran % Lymph % (Auto) Kimball % (Auto) Eos % (Auto) Baso % (Auto) Gran # Lymph # Kimball # Eos # Baso # Sodium Potassium Chloride Carbon Dioxide Anion Gap BUN Creatinine Est GFR ( Amer) Est GFR (Non-Af Amer) POC Glucose (mg/dL) 177 H 164 H 198 H Random Glucose Calcium Total Bilirubin AST ALT Alkaline Phosphatase Total Protein Albumin Globulin Albumin/Globulin Ratio 02/18/17 02/18/17 02/18/17 07:13 11:30 11:30 WBC 8.7 D RBC 4.12 Hgb 12.7 L Hct 36.9 L MCV 89.6 MCH 30.8 MCHC 34.4 RDW 14.5 Plt Count 76 L MPV 10.6 Gran % 88.5 H Lymph % (Auto) 3.6 L Kimball % (Auto) 6.5 H Eos % (Auto) 1.3 L Baso % (Auto) 0.1 Gran # 7.67 H Lymph # 0.3 L Kimball # 0.6 Eos # 0.1 Baso # 0.01 Sodium 131 L Potassium 4.1 Chloride 100 Carbon Dioxide 22 Anion Gap 13 BUN 41 H Creatinine 1.3 Est GFR ( Amer) > 60 Est GFR (Non-Af Amer) 52 POC Glucose (mg/dL) 169 H Random Glucose 189 H Calcium 8.3 L Total Bilirubin 1.1 AST 30 ALT 32 Alkaline Phosphatase 80 Total Protein 5.9 Albumin 3.2 Globulin 2.8 Albumin/Globulin Ratio 1.1 Attending/Attestation - Attestation I have personally seen and examined this patient.: Yes I have fully participated in the care of the patient.: Yes I have reviewed all pertinent clinical information: Yes Notes (Text): 02/18/17 16:00 INCREASE GABAPENTIN TO 300MG PO BID FOR LUMBAR PAIN.
[2017-02-18 11:35] LABS: BASO # 0.01 K/mm3 (0.0-2.0); BASO % 0.1 % (0.0-3.0); EOS # 0.1 (0.0-0.7); EOS % 1.3 % (1.5-5.0); GRAN # 7.67 (1.4-6.5); GRAN % 88.5 % (50.0-68.0); HEMOGLOBIN 12.7 gm/dL (14.0-18.0); LYMPH # 0.3 (1.2-3.4); LYMPH % 3.6 % (22.0-35.0); MEAN CELL VOLUME 89.6 fL (80.0-105.0); MEAN CORPUSCULAR HEMOGLOBIN 30.8 pg (25.0-35.0); MEAN CORPUSCULAR HGB CONC 34.4 g/dl (31.0-37.0); MEAN PLATELET VOLUME 10.6 fl (7.0-11.0); MONO # 0.6 (0.1-0.6); MONO % 6.5 % (1.0-6.0); PLATELET COUNT 76 10^3/uL (120.0-450.0); RBC 4.12 10^6/uL (3.5-6.1); RED CELL DISTRIBUTION WIDTH 14.5 % (11.5-14.5); WHITE BLOOD COUNT 8.7 10^3/ul (4.5-11.0)
[2017-02-18 11:46] LABS: ALB/GLOB RATIO 1.1 (1.1-1.8); ALBUMIN 3.2 g/dL (3.0-4.8); ALT/SGPT 32 U/L (7-56); AST/SGOT 30 U/L (15-59); BLOOD UREA NITROGEN 41 mg/dL (7-21); CALCIUM 8.3 mg/dL (8.4-10.5); GFR AFRICAN-AMERICAN > 60; GFR NON-AFRICAN AMERICAN 52
--- NOTE | 2017-02-18 12:16 | RAD ---
HISTORY: R/O pneumonia Vs CHF COMPARISON: 02/16/2017 FINDINGS: LUNGS: Patchy infiltrate at the right lung base PLEURA: No significant pleural effusion identified, no pneumothorax apparent. CARDIOVASCULAR: Moderate to severe cardiomegaly OSSEOUS STRUCTURES: No significant abnormalities. VISUALIZED UPPER ABDOMEN: Normal. OTHER FINDINGS: Single lead pacemaker IMPRESSION: Infiltrate at right lung base suspicious for pneumonia
[2017-02-18] MEDS: Oxycodone/Acetaminophen 5/325 mg Tab PO PRN ×2 (14:15→19:41)
[2017-02-18] MEDS: Alum-Mag Hydrox-Simethicone Susp (30 mL) PO PRN (18:24)
[2017-02-19] MEDS: Oxycodone/Acetaminophen 5/325 mg Tab PO PRN ×4 (01:01→15:43)
[2017-02-19 06:20] LABS: BASO # 0.01 K/mm3 (0.0-2.0); BASO % 0.2 % (0.0-3.0); EOS # 0.1 (0.0-0.7); EOS % 1.8 % (1.5-5.0); GRAN # 4.55 (1.4-6.5); GRAN % 80.9 % (50.0-68.0); HEMOGLOBIN 12.1 gm/dL (14.0-18.0); LYMPH # 0.5 (1.2-3.4); MEAN CELL VOLUME 89.8 fL (80.0-105.0); MEAN CORPUSCULAR HEMOGLOBIN 30.1 pg (25.0-35.0); MEAN CORPUSCULAR HGB CONC 33.5 g/dl (31.0-37.0); MEAN PLATELET VOLUME 10.6 fl (7.0-11.0); MONO # 0.5 (0.1-0.6); MONO % 9.1 % (1.0-6.0); PLATELET COUNT 67 10^3/uL (120.0-450.0); RBC 4.02 10^6/uL (3.5-6.1); RED CELL DISTRIBUTION WIDTH 14.5 % (11.5-14.5); WHITE BLOOD COUNT 5.6 10^3/ul (4.5-11.0)
[2017-02-19 06:29] LABS: ALB/GLOB RATIO 1.1 (1.1-1.8); ALBUMIN 3.1 g/dL (3.0-4.8); ALT/SGPT 34 U/L (7-56); AST/SGOT 33 U/L (15-59); BLOOD UREA NITROGEN 40 mg/dL (7-21); CALCIUM 8.3 mg/dL (8.4-10.5); GFR AFRICAN-AMERICAN > 60; GFR NON-AFRICAN AMERICAN 57; MAGNESIUM 2.2 mg/dL (1.7-2.2)
[2017-02-19] MEDS: Insulin Reg-LOW-Coverage SC SCH ×4 (08:42→23:34)
--- NOTE | 2017-02-19 09:13 | PN ---
DATE: 02/18/2017 SUBJECTIVE: The patient seen earlier and today in the ICU 129, bed 5, he had uneventful night, he felt cold. He has had no fevers. No chills. No abdominal pain. PHYSICAL EXAMINATION: VITAL SIGNS: Temperature is 97, blood pressure is 110/50, respiratory rate of 20, heart rate of 60. HEENT: Unremarkable. NECK: Supple. CARDIOPULMONARY: Heart sounds normal S1, S2. LUNGS: Decreased breath sounds. ABDOMEN: Soft, nontender. LABORATORY DATA: [place] [address], hemoglobin of 12 and the platelets of 70. Chemistry revealed a BUN 40, creatinine of 1.5. Urinalysis is noted. Microbiology reveals the a.m. blood cultures have no growth. Urine culture initial one from the 05/15/2017 shows Escherichia coli greater than 100,000 which is pansensitive, sensitive to ceftriaxone and quinolones, sulfa and the patient also had a repeat urine culture on the following day which shows no growth. Blood cultures are negative at 24 hours. Review of the order reveals the patient found to be on p.o. Keflex on hold by Dr. Richard. The patient is also on meropenem and Zyvox. ASSESSMENT AND PLAN: He is an 86-year-old male with sepsis due to left-sided healthcare associated pneumonia, possible Gram-positive cocci, possible Gram-negative greer pneumonia and the patient had a CAT scan of the chest and abdomen and pelvis on the 02/16/2017, which shows small focal areas of consolidation of left lung base and had a procalcitonin which was 2.0 on the 02/16/2017. Currently, on day #3 of Zyvox and meropenem with complete 4-7 days, we will repeat a procalcitonin today and we will follow closely with you. Jasson Seaman MD
--- NOTE | 2017-02-19 09:15 | PN ---
Attending MD: Dr. Randall Mccracken DATE: 02/18/2017 SERVICE: Cardiology. REASON FOR THE CONSULTATION AND FOLLOWUP: Sick sinus syndrome, tachybrady syndrome, atrial flutter, bradycardia, multiple pause. BRIEF CLINICAL HISTORY: This is an 86-year-old male with past medical history significant for coronary artery disease, CABG in 2004 a 5-vessel, diabetes, hypertension, hyperlipidemia, admitted new onset of atrial flutter with slow ventricular rate of 30. Patient was on beta-alessia, observed for 48 hours after the patient underwent permanent pacemaker implantation. Next day, postop, patient became very weak, lethargic; his WBC went up, CAT scan of the abdomen and chest was then found to be pneumonia and possible UTI. The patient currently in ICU being treated with IV antibiotics, feeling better than yesterday, but still his whole body hurts. PHYSICAL EXAMINATION: VITAL SIGNS: Temperature afebrile, heart rate 60, blood pressure 121/60. HEENT: PERRLA and intact. NECK: Supple. No carotid or thyromegaly. CHEST: Clear to auscultation in all lung hillman. ABDOMEN: Soft, nontender, nondistended, normoactive bowel sounds. EXTREMITIES: Clubbing or cyanosis negative. LABORATORY DATA: Blood workup as follows: WBC 12.8, hemoglobin 12, hematocrit 35.1, platelet count 70. Today lab is pending. Yesterday platelet was 70. Yesterday, chemistries, sodium 131, potassium 4.1, chloride 100, CO2 21, anion gap of 14, BUN 40, creatinine 1.5. IMPRESSION: An 86-year-old male with past medical history significant for coronary artery disease and coronary artery bypass graft. He is status post 5-vessels bypass in 2004, admitted with new onset of atrial flutter with slow ventricular rate. After 48 hours holding Lopressor, patient still remains bradycardic requiring external pacer, so a pacemaker was implanted. Later on, patient found to be having left lower lobe pneumonia, IV antibiotic improving. Last echo of patient done in 01/2016 showed ejection fraction of 65%, moderate TR, moderate PI, mild MR, moderate, ejection fraction of 55%. Last stress test in 03/2015 negative for ischemia. Also, patient has urinary tract infection, diabetes, hypertension, and hyperlipidemia. RECOMMENDATION: Continue antibiotic, a bit out of the bed to the chair. Follow up with ID. We will follow the lab today. Yesterday, patient had thrombocytopenia as well as renal insufficiency, which is improving. Follow up the lab today. Continue antibiotic. Low dose beta-alessia restarted. Continue to hold hydrochlorothiazide. Also Norvasc was held because of low blood pressure. We will follow with you. Thank you for the opportunity in taking care of patient. Harpal Richard MD
--- NOTE | 2017-02-19 09:23 | PN ---
DATE: 01/19/2017 SUBJECTIVE: The patient has no complaints of any chest pain, no shortness of breath, no headaches or dizziness. The patient does complain of back pain. PHYSICAL EXAMINATION: VITAL SIGNS: Temperature is 98.4, pulse of 60, blood pressure 121/60, respirations 21, O2 saturation 97%. HEENT: Atraumatic and normocephalic. Anicteric sclerae. Moist mucosa. NECK: No JVD and no adenopathy. HEART: S1, S2. Regular. No murmurs, rubs, or gallops. LUNGS: Clear to auscultation bilaterally. No wheezes or rales. ABDOMEN: Bowel sounds are positive, soft, nontender, and nondistended. EXTREMITIES: Lower extremities, he has no edema. 2+ pulses. He does have 4-5 power in the lower extremities bilaterally. LABORATORY DATA: White count of 12.8, hemoglobin is 12. Chemistry shows a sodium of 131, creatinine is 1.5. His CT of the chest, abdomen, and pelvis shows small area of consolidation in the left lung base, possible pneumonia. ASSESSMENT: 1. Bradycardia, symptomatic, status post pacemaker placement. 2. Hospital-acquired pneumonia. 3. Coronary artery disease, status post coronary artery bypass graft. 4. Hypertension. 5. Diabetes type 2. 6. Chronic obstructive pulmonary disease. 7. Dyslipidemia. 8. Urinary retention with Beatty catheter. PLAN: The patient is currently comfortable. He is on hydralazine. He is going to be on aspirin. He is on Flomax for his BPH. He is on meropenem for antibiotics. He is on MiraLax for constipation. He is on Neurontin for neuropathy. He is also on Norvasc for hypertension. He is being followed by Dr. Koroma. I did speak to him this morning. I did speak to the patient's daughter to give an update on the patient's diagnosis and plan of care. He does have a history of spinal stenosis and has been in bed for the past 5 to 6 days. He will need to do physical therapy. I will also get Dr. Sutherland to evaluate the patient's lower extremity weakness. Randall Mccracken MD
[2017-02-19] MEDS: Meropenem 1g/NS 100mL IVPB 1 GM/100 ML PIGGYBACK IVPB SCH ×2 (09:25→23:34)
[2017-02-19] MEDS: POLYETHYLENE GLYCOL 3350 17 GM/Dose PACKET PO SCH (09:25)
[2017-02-19] MEDS: RANOLAZINE 500 MG PO SCH ×2 (09:28→18:32)
--- NOTE | 2017-02-19 09:31 | CP.PCM.PN ---
Subjective - Date & Time of Evaluation Date of Evaluation: 02/19/17 Time of Evaluation: 09:00 - Subjective Subjective: Complaining of some pain in the legs but goes away when he is moved to a chair, no fevers overnight, no bleeding, no diarrhea, breathing better. Objective - Vital Signs/Intake and Output Vital Signs (last 24 hours): Temp Pulse Resp BP Pulse Ox 98.3 F 60 14 130/61 100 02/18/17 00:00 02/18/17 02:00 02/18/17 02:00 02/18/17 02:00 02/18/17 02:00 Intake and Output: 02/17/17 02/18/17 18:59 06:59 Intake Total 2250 Output Total 550 Balance 1700 - Medications Medications: Current Medications Acetaminophen (Tylenol 325mg Tab) 650 mg PO Q6H PRN PRN Reason: for pain Last Admin: 02/17/17 23:21 Dose: 650 mg Albuterol Sulfate (Albuterol 0.083% Inhal Ros (2.5 Mg/3 Ml) Ud) 2.5 mg IH [id number] PRN PRN Reason: Shortness of Breath Amlodipine Besylate (Norvasc) 10 mg PO DAILY [facility] Last Admin: 02/16/17 09:11 Dose: Not Given Aspirin (Ecotrin) 81 mg PO DAILY [facility] Last Admin: 02/17/17 09:41 Dose: Not Given Cephalexin Monohydrate (Keflex) 250 mg PO TID [facility] PRN Reason: Protocol Stop: 02/19/17 23:59 Last Admin: 02/16/17 09:07 Dose: 250 mg Gabapentin (Neurontin) 100 mg PO BID [facility] PRN Reason: Protocol Last Admin: 02/17/17 18:50 Dose: Not Given Hydralazine HCl (Apresoline) 10 mg PO QID PRN PRN Reason: for SBP>170 and Diastolic>100 Hydrochlorothiazide (Microzide) 12.5 mg PO MoWeFr@1000 [facility] Last Admin: 02/15/17 14:43 Dose: 12.5 mg Meropenem 1g/NS 100mL IVPB (Meropenem 1g/Ns 100ml Ivpb) 1 gm in 100 mls @ 100 mls/hr IVPB Q12 [facility] PRN Reason: Protocol Stop: 02/23/17 11:16 Last Admin: 02/17/17 22:25 Dose: 100 mls/hr Linezolid (Zyvox 600mg/300ml D5w) 600 mg in 300 mls @ 200 mls/hr IVPB Q12 [facility] PRN Reason: Protocol Stop: 02/23/17 11:16 Last Admin: 02/17/17 21:16 Dose: 200 mls/hr Insulin Human Regular (Humulin R Low) 0 units SC ACHS [facility] PRN Reason: Protocol Last Admin: 02/17/17 21:45 Dose: Not Given Home Med- ( Ranolazine [Ranexa] 500 Mg) 500 mg PO BID [facility] Last Admin: 02/17/17 18:42 Dose: 500 mg Polyethylene Glycol (Miralax) 17 gm PO DAILY [facility] Last Admin: 02/17/17 09:41 Dose: Not Given Simethicone (Mylicon Chew Tab) [address] [facility] PRN PRN Reason: GI distress Last Admin: 02/17/17 19:54 Dose: 80 mg Tamsulosin HCl (Flomax) 0.4 mg PO DAILY [facility] Last Admin: 02/17/17 09:41 Dose: Not Given - Labs Labs: 02/17/17 05:30 02/17/17 05:30 PT 13.1 Seconds (9.9-11.8) H 02/17/17 05:30 INR 1.21 (0.93-1.08) H 02/17/17 05:30 APTT 38.1 Seconds (23.7-30.8) H 02/17/17 05:30 - Constitutional Appears: Non-toxic, No Acute Distress - Head Exam Head Exam: NORMAL INSPECTION - ENT Exam ENT Exam: Mucous Membranes Moist - Neck Exam Neck Exam: absent: Lymphadenopathy, Meningismus - Respiratory Exam Respiratory Exam: Decreased Breath Sounds - Cardiovascular Exam Cardiovascular Exam: +S1, +S2 - GI/Abdominal Exam GI & Abdominal Exam: Soft. absent: Tenderness Assessment and Plan - Assessment and Plan (Free Text) Plan: Assessment sepsis due to left sided healthcare-associated pneumonia with possible gram positive cocci and/or gram negative bacilli, clinically improving acute thrombocytopenia, R/O heparin-induced S/P permanent pacemaker placement CAD S/P CABG HTN atrial fibrillation COPD DM obesity with BMI 30 Plan will hold Zyvox and continue Merrem day 4 to complete 4-7 days of therapy; initial urine cx showed E. coli but the patient did not complain of urinary symptoms; reviewed CT chest which showed the infiltrates in the left lung will continue to monitor clinically
[2017-02-19] MEDS: Alum-Mag Hydrox-Simethicone Susp (30 mL) PO PRN (10:20)
--- NOTE | 2017-02-19 12:10 | CON ---
DATE: 02/15/2017 HISTORY OF PRESENT ILLNESS: The patient is well known to me. 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 He had a distal ureterectomy performed years ago. 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 The patient at that time did not wish to have a nephroureterectomy and medically it was felt in his best interest to leave the kidney in situ. On followup exams, he has not had any recent recurrence in the bladder, and radiographically, there has been no evidence of recurrence in the kidney or ureter. The patient now was seen in the CCU at [facility]. He was admitted with dizziness and symptomatic bradycardia. During the hospital admission, the patient had a pacemaker placed. He then was found to have apparent sepsis syndrome possibly due to a pneumonia or possibly urosepsis. He is seen in the CCU now. Beatty catheter has been placed. He appears to be improving with medical treatment. PAST MEDICAL HISTORY: Significant for coronary artery disease, atrial fibrillation, diabetes, COPD, transitional cell carcinoma, and bradycardia. MEDICATIONS: Currently include albuterol, hydralazine, aspirin, Flomax, Ranexa, insulin, Keflex, meropenem, Microzide, MiraLax, Mylicon, Neurontin, Norvasc, Tylenol and Zyvox. ALLERGIES: ALLERGIC TO PENTAZOCINE. FAMILY HISTORY: Noncontributory. SOCIAL HISTORY: No current smoking or ETOH use. REVIEW OF SYSTEMS: The patient is awake, but somewhat obtunded and sleepy. He is not fully answering questions. Review of systems are obtained from the chart, positive for weakness, dizziness, positive for difficulty ambulating, positive for some memory issues, positive for palpitations and irregular heartbeat, positive for low back pain and knee pain. Other systems apparently are negative. PHYSICAL EXAMINATION: GENERAL: The patient is awake. He is alert and speaking, although somewhat somnolent. VITAL SIGNS: He has been afebrile with a temp of 98.8 today; pulse was 53; respirations 18; BP 146/60. NECK: Supple. There is no obvious adenopathy. CHEST: Revealed slightly increased inspiratory effort. CARDIAC: Pulse irregular and somewhat slow. ABDOMEN: Soft, nontender and nondistended. There is no hepatosplenomegaly or costovertebral angle tenderness. Bladder is not palpably distended. GENITOURINARY: He has a Beatty catheter in place which is draining clear-colored urine. Scrotum is normal. Testes bilaterally descended. Nontender. No masses. Epididymides are normal. EXTREMITIES: There is no cyanosis. There is mild bilateral peripheral edema on *------* exam. LABORATORY DATA: WBC count 8.5. GFR on the 8th was 48 with a creatinine of 1.4. Urine culture grew E. coli. On radiologic exam, no pertinent urologic studies have yet been done. IMPRESSION AND PLAN: This is an 86-year-old male with symptomatic bradycardia and a pacemaker placement and is now being treated for sepsis. Urologically, it is quite possible that he has urosepsis. He has a Beatty catheter in now and is being treated with IV antibiotics which should help. The patient should have a CT scan of the abdomen and pelvis given his prior history of urothelial cancer. I would leave the Beatty catheter in place at this time until the patient has adequately recovered and is out of the ICU. When the patient is able to stand and void, has recovered from septic episode, we will remove the Beatty catheter for a voiding trail. Other treatment as per cardiology, ID and internal medicine. Thank you for allowing us to participate in the care of this patient. We will follow him with you. Adair Santos MD
--- NOTE | 2017-02-19 14:25 | CT ---
PROCEDURE: CT Lumbar Spine without contrast HISTORY: lower back pain hx of spinal stenosis. COMPARISON: None. TECHNIQUE: Axial computed tomography images were obtained of the lumbar spine without the use of intravenous contrast. Coronal and sagittal reformatted images were created and reviewed. Radiation dose: Total exam DLP = mGy-cm. This CT exam was performed using one or more of the following dose reduction techniques: Automated exposure control, adjustment of the mA and/or kV according to patient size, and/or use of iterative reconstruction technique. FINDINGS: VERTEBRAE: Unremarkable. No fracture. Normal alignment. DISCS/SPINAL CANAL/NEURAL FORAMINA: L1-2: Mild disc degeneration. Anterior osteophytes L2-3: Severe disc degeneration with a vacuum disc. L3-4: Mild disc bulge. Mild to moderate central stenosis L4-5: Moderate central stenosis L5-S1: Unremarkable. PARASPINAL SOFT TISSUES: Unremarkable. OTHER FINDINGS: None. IMPRESSION: Moderate central canal stenosis at L3-4 and L4-5. Multilevel disc degeneration
--- NOTE | 2017-02-19 22:16 | PN ---
DATE: SUBJECTIVE: The patient has better controlled pain on the back compared to yesterday. The patient was placed on the Percocet which did help him. He continues to have pain that is out of proportion to his normal pain. He has been in the hospital in bed for about 1 week. We will do a CAT scan of his lower back to evaluate further. He does have a history of spinal stenosis. PHYSICAL EXAMINATION VITAL SIGNS: Temperature 98, pulse of 65, blood pressure 147/75, respiration 12. HEENT: Atraumatic. Anicteric sclerae. Moist mucosa. NECK: No JVD, adenopathy, thyromegaly. LUNGS: Good bilateral air entry. No wheezes, rales, or rhonchi. ABDOMEN: Bowel sounds are positive. Soft, nontender, and nondistended. EXTREMITIES: Lower extremity, no edema. There are 2+ pulses bilaterally. LABORATORY DATA: White count of 5.6, hemoglobin 12.1 creatinine is 1.2. ASSESSMENT: 1. Symptomatic bradycardia, status post pacemaker placement. 2. Urinary tract infection secondary to Escherichia coli. 3. Coronary artery disease, status post coronary artery bypass graft. 4. Diabetes type 2. 5. Chronic obstructive pulmonary disease. 6. Spinal stenosis. 7. Back pain, acute on chronic. 8. Dyslipidemia. 9. Urinary retention. 10. Benign prostatic hyperplasia. PLAN: The patient's lower extremity is weaker, it is about 4-5/5. I am concerned about patient's acute back pain. I will get a CT scan of his lower back. The patient is on aspirin, going to continue on Flomax for his BPH and his urinary retention. The patient is on meropenem for antibiotics. He is going to continue with gabapentin for his neuropathy. I will sales and service change leader his antibiotics to p.o. and place him on Vantin. The patient's blood pressure is controlled. The patient is on heart healthy diet. He is going to go to telemetry. He has TT evaluation that has been ordered. Randall Mccracken MD
[2017-02-20] MEDS: Oxycodone/Acetaminophen 5/325 mg Tab PO PRN (04:31)
--- NOTE | 2017-02-20 05:02 | PN ---
DATE: 02/19/2017 SUBJECTIVE: Consultation was dictated in the other dictation system but has not yet shown up in the chart. Patient is seen in his room. He is still in the ICU at [facility]. He reports feeling better. He is complaining of some right lower groin pain. No current fevers or chills. PHYSICAL EXAMINATION: VITAL SIGNS: He has been afebrile, temperature this morning was 98, pulse has been good. He had a pacemaker placed, he has currently pulse of 72, blood pressure 131/70 and respirations 16. ABDOMEN: Soft, nontender and nondistended. There is no obvious mass. There is no hernia in the right lower quadrant where he is complaining of pain. EXTREMITIES: Show moderate peripheral edema. GENITOURINARY: Phallus is normal. There is a Beatty catheter in place showing a clear colored urine. Scrotum is normal. Testes are bilaterally descended, nontender. No masses. Epididymo are normal. LABORATORY DATA: Urine culture grew E. coli initially. Last urine culture was no growth. IMPRESSION AND PLAN: For now, I would continue patient with the indwelling Beatty catheter. The plan is to move him upstairs to telemetry and then likely to the rehab unit. I will plan a voiding trial when patient is on the rehab unit and able to stand and ambulate to the bathroom. However for now, I would leave the Beatty catheter indwelling. He should be continued on medical treatment for the symptomatic bradycardia and his urinary infection septic episode. I will continue to follow the patient with you. Adair Santos MD
[2017-02-20] MEDS: Insulin Reg-LOW-Coverage SC SCH ×4 (08:14→21:20)
[2017-02-20] MEDS: Alum-Mag Hydrox-Simethicone Susp (30 mL) PO PRN ×2 (09:14→21:00)
[2017-02-20] MEDS: POLYETHYLENE GLYCOL 3350 17 GM/Dose PACKET PO SCH (09:14)
[2017-02-20] MEDS: Meropenem 1g/NS 100mL IVPB 1 GM/100 ML PIGGYBACK IVPB SCH ×2 (09:16→21:02)
[2017-02-20] MEDS: RANOLAZINE 500 MG PO SCH ×2 (09:16→17:20)
--- NOTE | 2017-02-20 12:03 | CP.PCM.PN ---
Subjective - Date & Time of Evaluation Date of Evaluation: 02/20/17 Time of Evaluation: 10:50 - Subjective Subjective: Feeling better, no shortness of breath at rest, no fevers overnight, still with occasional leg pain. Objective - Vital Signs/Intake and Output Vital Signs (last 24 hours): Temp Pulse Resp BP Pulse Ox 98.5 F 77 17 122/55 L 93 L 02/20/17 06:00 02/20/17 06:00 02/20/17 06:00 02/20/17 06:00 02/20/17 06:00 Intake and Output: 02/20/17 02/20/17 06:59 18:59 Intake Total 100 Balance 100 - Medications Medications: Current Medications Acetaminophen (Tylenol 325mg Tab) 650 mg PO Q6H PRN PRN Reason: for pain Last Admin: 02/18/17 12:07 Dose: 650 mg Al Hydrox/Mg Hydrox/Simethicone (Maalox Plus 30 Ml) 30 ml PO Q6H PRN PRN Reason: Indigestion / Heartburn Last Admin: 02/19/17 10:20 Dose: 30 ml Albuterol Sulfate (Albuterol 0.083% Inhal Ros (2.5 Mg/3 Ml) Ud) 2.5 mg IH [id number] PRN PRN Reason: Shortness of Breath Amlodipine Besylate (Norvasc) 10 mg PO DAILY [facility] Last Admin: 02/16/17 09:11 Dose: Not Given Amlodipine Besylate (Norvasc) 10 mg PO DAILY [facility] Last Admin: 02/19/17 09:31 Dose: 10 mg Aspirin (Ecotrin) 81 mg PO DAILY [facility] Last Admin: 02/19/17 09:25 Dose: 81 mg Gabapentin (Neurontin) 100 mg PO BID [facility] PRN Reason: Protocol Last Admin: 02/19/17 18:32 Dose: 100 mg Hydralazine HCl (Apresoline) 10 mg PO QID PRN PRN Reason: for SBP>170 and Diastolic>100 Hydrochlorothiazide (Microzide) 12.5 mg PO MoWeFr@1000 [facility] Last Admin: 02/15/17 14:43 Dose: 12.5 mg Meropenem 1g/NS 100mL IVPB (Meropenem 1g/Ns 100ml Ivpb) 1 gm in 100 mls @ 100 mls/hr IVPB Q12 [facility] PRN Reason: Protocol Stop: 02/23/17 11:16 Last Admin: 02/19/17 23:34 Dose: 100 mls/hr Insulin Human Regular (Humulin R Low) 0 units SC ACHS [facility] PRN Reason: Protocol Last Admin: 02/19/17 23:34 Dose: Not Given Home Med- ( Ranolazine [Ranexa] 500 Mg) 500 mg PO BID [facility] Last Admin: 02/19/17 18:32 Dose: 500 mg Oxycodone/Acetaminophen (Percocet 5/325 Mg Tab) 1 tab PO Q4H PRN PRN Reason: Pain, moderate (4-7) Stop: 02/21/17 12:46 Last Admin: 02/20/17 04:31 Dose: 1 tab Polyethylene Glycol (Miralax) 17 gm PO DAILY [facility] Last Admin: 02/19/17 09:25 Dose: 17 gm Simethicone (Mylicon Chew Tab) 80 mg PO HS PRN PRN Reason: GI distress Last Admin: 02/17/17 19:54 Dose: 80 mg Tamsulosin HCl (Flomax) 0.4 mg PO DAILY [facility] Last Admin: 02/19/17 09:25 Dose: 0.4 mg - Labs Labs: 02/19/17 05:30 02/19/17 05:30 PT 13.1 Seconds (9.9-11.8) H 02/17/17 05:30 INR 1.21 (0.93-1.08) H 02/17/17 05:30 APTT 38.1 Seconds (23.7-30.8) H 02/17/17 05:30 - Constitutional Appears: Non-toxic, No Acute Distress - Head Exam Head Exam: NORMAL INSPECTION - Respiratory Exam Respiratory Exam: Decreased Breath Sounds - Cardiovascular Exam Cardiovascular Exam: +S1, +S2 - GI/Abdominal Exam GI & Abdominal Exam: Soft. absent: Tenderness Assessment and Plan - Assessment and Plan (Free Text) Plan: Assessment sepsis due to left sided healthcare-associated pneumonia with possible gram positive cocci and/or gram negative bacilli, clinically improving acute thrombocytopenia, R/O heparin-induced S/P permanent pacemaker placement CAD S/P CABG HTN atrial fibrillation COPD DM obesity with BMI 30 Plan will hold Zyvox and continue Merrem day 5 to complete 4-7 days of therapy; initial urine cx showed E. coli but the patient did not complain of urinary symptoms; reviewed CT chest which showed the infiltrates in the left lung CT of the lumbar spine is showing central canal stenosis and disc degeneration will continue to monitor clinically
[2017-02-20] MEDS: Pantoprazole 40 mg EC Tab PO SCH (17:20)
--- NOTE | 2017-02-20 20:38 | PN ---
DATE: 02/19/2017 REASON FOR FOLLOWUP: Tachybrady syndrome, sick sinus syndrome, atrial flutter, slow response, status post permanent pacemaker. BRIEF CLINICAL HISTORY: An 86-year-old male with history of CABG, coronary artery bypass surgery, admitted with new onset of atrial flutter with slow ventricular rate. The patient underwent pacemaker and found to be found very lethargic; had elevated WBC, possible UTI, and possible pneumonia, being treated with IV antibiotics, much awake and alert. Denies any fever, chills. Blood pressure in normal range. PHYSICAL EXAMINATION: VITAL SIGNS: Temperature afebrile, heart rate 66, blood pressure 147/75. HEENT: PERRLA, intact. NECK: Supple. No carotid bruits or thyromegaly. CHEST: Clear to auscultation. HEART: S1, S2. Regular. ABDOMEN: Soft. EXTREMITIES: Clubbing or cyanosis negative. IMAGING: Last EKG of 11/17/2016, demand pacemaker, underlying atrial flutter. Echocardiography showed ejection fraction of 60% to 65%, trace to mild mitral regurgitation, moderate tricuspid regurgitation, systolic pressure of 54. LABORATORY DATA: Blood workup as follows: WBC 5.6, hemoglobin 12.1, hematocrit 36.1, platelet count 67. Sodium 130, potassium 4.2, chloride 99, CO2 of 24, anion gap of 13, BUN 40, creatinine 1.2. IMPRESSION: Rule out heparin-induced thrombocytopenia, sepsis, rule out hemolytic uremic syndrome, low platelet count, urinary tract infection, pneumonia, status post permanent pacemaker. RECOMMENDATION: Continue antibiotic as per ID. Followup heparin antibody sent yesterday. Repeat chest x-ray, shows infiltrated right base suspicious for pneumonia. Resume antihypertensive medication. We will follow with you. We will repeat a CBC tomorrow and an EKG. Avoid any heparin for possible heparin-induced thrombocytopenia. Monitor platelet. If it goes below 50, consider starting argatroban and hem/onc followup. We will resume amlodipine with holding parameter. Thank you doctor for the opportunity in taking care of Clare Bonilla. Harpal Richard MD [facility] # [id number]
--- NOTE | 2017-02-20 20:57 | CP.PCM.PN ---
Subjective - Date & Time of Evaluation Date of Evaluation: 02/20/17 Time of Evaluation: 20:57 - Subjective Subjective: Patient was seen at bedside. Requests something for sllep.Feels nervous. As per daughter, do not want sleeping pill, had received xanax when he was in ICU, it helped, requests the same for sleep. Has no otoher complaints at this time. 86 year old white male was admitted with dizziness, bradycardia, Has PMH of CAD, HTN, NIDDM, COPD, Dyslipidemia. Objective - Vital Signs/Intake and Output Vital Signs (last 24 hours): Temp Pulse Resp BP Pulse Ox 98.5 F 60 22 108/51 L 97 02/20/17 18:00 02/20/17 18:00 02/20/17 18:00 02/20/17 18:00 02/20/17 09:00 Intake and Output: 02/20/17 02/21/17 18:59 06:59 Intake Total 1020 Output Total 2250 Balance -1230 - Medications Medications: Current Medications Acetaminophen (Tylenol 325mg Tab) 650 mg PO Q6H PRN PRN Reason: for pain Last Admin: 02/20/17 15:01 Dose: 650 mg Al Hydrox/Mg Hydrox/Simethicone (Maalox Plus 30 Ml) 30 ml PO Q6H PRN PRN Reason: Indigestion / Heartburn Last Admin: 02/20/17 09:14 Dose: 30 ml Albuterol Sulfate (Albuterol 0.083% Inhal Ros (2.5 Mg/3 Ml) Ud) 2.5 mg IH [id number] PRN PRN Reason: Shortness of Breath Amlodipine Besylate (Norvasc) 10 mg PO DAILY [facility] Last Admin: 02/16/17 09:11 Dose: Not Given Amlodipine Besylate (Norvasc) 10 mg PO DAILY [facility] Last Admin: 02/20/17 09:15 Dose: 10 mg Aspirin (Ecotrin) 81 mg PO DAILY [facility] Last Admin: 02/20/17 09:15 Dose: 81 mg Gabapentin (Neurontin) 100 mg PO BID [facility] PRN Reason: Protocol Last Admin: 02/20/17 17:20 Dose: 100 mg Hydralazine HCl (Apresoline) 10 mg PO QID PRN PRN Reason: for SBP>170 and Diastolic>100 Hydrochlorothiazide (Microzide) 12.5 mg PO MoWeFr@1000 [facility] Last Admin: 02/15/17 14:43 Dose: 12.5 mg Meropenem 1g/NS 100mL IVPB (Meropenem 1g/Ns 100ml Ivpb) 1 gm in 100 mls @ 100 mls/hr IVPB Q12 [facility] PRN Reason: Protocol Stop: 02/23/17 11:16 Last Admin: 02/20/17 09:16 Dose: 100 mls/hr Insulin Human Regular (Humulin R Low) 0 units SC ACHS [facility] PRN Reason: Protocol Last Admin: 02/20/17 16:42 Dose: 1 units Home Med- ( Ranolazine [Ranexa] 500 Mg) 500 mg PO BID [facility] Last Admin: 02/20/17 17:20 Dose: 500 mg Oxycodone/Acetaminophen (Percocet 5/325 Mg Tab) 1 tab PO Q4H PRN PRN Reason: Pain, moderate (4-7) Stop: 02/21/17 12:46 Last Admin: 02/20/17 04:31 Dose: 1 tab Pantoprazole Sodium (Protonix Ec Tab) 40 mg PO DAILY [facility] Last Admin: 02/20/17 17:20 Dose: 40 mg Polyethylene Glycol (Miralax) 17 gm PO DAILY [facility] Last Admin: 02/20/17 09:14 Dose: 17 gm Simethicone (Mylicon Chew Tab) 80 mg PO [facility] PRN PRN Reason: GI distress Last Admin: 02/17/17 19:54 Dose: 80 mg Tamsulosin HCl (Flomax) 0.4 mg PO DAILY [facility] Last Admin: 02/20/17 09:15 Dose: 0.4 mg - Labs Labs: 02/19/17 05:30 02/19/17 05:30 PT 13.1 Seconds (9.9-11.8) H 02/17/17 05:30 INR 1.21 (0.93-1.08) H 02/17/17 05:30 APTT 38.1 Seconds (23.7-30.8) H 02/17/17 05:30 - Constitutional Appears: Well, No Acute Distress - Head Exam Head Exam: ATRAUMATIC, NORMAL INSPECTION, NORMOCEPHALIC - Eye Exam Eye Exam: Normal appearance - ENT Exam ENT Exam: Normal External Ear Exam - Neck Exam Neck Exam: Normal Inspection - Respiratory Exam Respiratory Exam: NORMAL BREATHING PATTERN - Cardiovascular Exam Cardiovascular Exam: absent: JVD - GI/Abdominal Exam GI & Abdominal Exam: absent: Distended - Rectal Exam Rectal Exam: Deferred - Exam Additional comments: Deferred. - Extremities Exam Extremities Exam: Normal Inspection - Back Exam Back Exam: NORMAL INSPECTION - Neurological Exam Neurological Exam: Alert, Oriented x3 - Psychiatric Exam Psychiatric exam: Normal Affect, Normal Mood - Skin Skin Exam: Normal Color Assessment and Plan - Assessment and Plan (Free Text) Assessment: Adjustment insomnia. Anxiety. CAD. HTN. NIDDM. COPD. Dyslipidemia. Plan: Xanax 0.25 mg po now. Continue present management as per PMD.
--- NOTE | 2017-02-20 22:52 | PN ---
DATE: 02/20/2017 SUBJECTIVE: The patient is 86-year-old, seen and examined, lying in bed. Seems to be comfortable. Daughter by the bedside. As per daughter, he is doing well. No nausea or vomiting. No diarrhea. Eating fair. Has generalized weakness. Difficulty walking. Although she stated before coming to the hospital, he was walking around. He was admitted because of bradycardia and had pacemaker placed. Then he went into urinary retention, now he has an indwelling catheter and awaiting to go to TCU. PHYSICAL EXAMINATION VITAL SIGNS: He is afebrile, pulse 69, respirations 17, blood pressure 116/66. LUNGS: Bilateral fair air flow. No rhonchi or crackle. HEART: S1 and S2 audible. ABDOMEN: Soft, obese, nontender, and no hepatosplenomegaly. NEUROLOGIC: He is sleepy, but arousable. Able to move extremities, although he has generalized weakness. EXTREMITIES: Bilateral leg, no edema. LABORATORY EXAM: WBCs 5.6, hemoglobin 12, hematocrit 36, platelet of 67. Chemistry, sodium 132, potassium 4.2, chloride 99, CO2 24, BUN 40, creatinine 1.2, blood sugar of 141. He had lumbar spine CT done that shows moderate central canal stenosis L3, L4, and L5. Multilevel disc degeneration. ASSESSMENT: 1. Status post symptomatic bradycardia, status post pacemaker placement. 2. Spinal stenosis. 3. Community-acquired pneumonia. 4. Thrombocytopenia. 5. Status post pacemaker placement. 6. History of coronary artery disease status post open heart surgery. 7. Chronic atrial fibrillation. 8. History of chronic obstructive pulmonary disease. 9. Non-insulin dependent diabetes. 10. Deconditioning and difficulty walking. 11. Status post urinary retention and now has indwelling catheter. PLAN: Patient is currently on Zyvox and on meropenem. Still patient's blood value is low. We would consider in discontinuing her Zyvox. Currently patient is on nebulizer treatment. He is getting hydralazine, aspirin 81 daily. He is on Flomax. Blood sugar is being monitored. He is getting meropenem, amlodipine. Actually upon review of medication, his Zyvox has been discontinued by ID today. Awaiting bed in TCU and if bed is available, patient can be transferred to TCU today. Alejandra Castañeda MD [facility] # [id number]
[2017-02-21] MEDS ORDERED: Pantoprazole 40 mg EC Tab PO STA (01:26)
[2017-02-21] MEDS: Alum-Mag Hydrox-Simethicone Susp (30 mL) PO PRN (03:00)
[2017-02-21 05:55] LABS: BASO # 0.01 K/mm3 (0.0-2.0); BASO % 0.1 % (0.0-3.0); EOS # 0.1 (0.0-0.7); GRAN # 5.25 (1.4-6.5); GRAN % 72.9 % (50.0-68.0); HEMOGLOBIN 11.3 gm/dL (14.0-18.0); LYMPH # 0.8 (1.2-3.4); LYMPH % 10.6 % (22.0-35.0); MEAN CELL VOLUME 88.8 fL (80.0-105.0); MEAN CORPUSCULAR HEMOGLOBIN 30.1 pg (25.0-35.0); MEAN CORPUSCULAR HGB CONC 33.9 g/dl (31.0-37.0); MEAN PLATELET VOLUME 10.4 fl (7.0-11.0); MONO # 1.1 (0.1-0.6); MONO % 15.4 % (1.0-6.0); PLATELET COUNT 72 10^3/uL (120.0-450.0); RBC 3.75 10^6/uL (3.5-6.1); RED CELL DISTRIBUTION WIDTH 14.6 % (11.5-14.5); WHITE BLOOD COUNT 7.2 10^3/ul (4.5-11.0)
[2017-02-21 06:22] VITALS: O2SAT 93
[2017-02-21] MEDS: Insulin Reg-LOW-Coverage SC SCH ×2 (08:40→12:49)
[2017-02-21] MEDS: RANOLAZINE 500 MG PO SCH (09:53)
[2017-02-21] MEDS: POLYETHYLENE GLYCOL 3350 17 GM/Dose PACKET PO SCH (09:53)
[2017-02-21] MEDS: Pantoprazole 40 mg EC Tab PO SCH (09:53)
[2017-02-21] MEDS: Meropenem 1g/NS 100mL IVPB 1 GM/100 ML PIGGYBACK IVPB SCH (09:54)
--- NOTE | 2017-02-21 10:21 | CARD ---
APPROVED REPORT EKG Measurement Heart [id number] <Conclusion> Demand pacemaker, underlying A flutter
[2017-02-21 13:05] VITALS: BP 131/62; PULSE 65; RESP 18; TEMP 98.3
--- NOTE | 2017-02-22 02:22 | PN ---
LOCATION: Patient in room #269, bed 2. SUBJECTIVE: The patient sitting in chair without any chest pain, shortness of breath, or palpitation; however, he is complaining of right inguinal area and lower back pain. PHYSICAL EXAMINATION: VITAL SIGNS: Blood pressure is 116/66, respirations 17, pulse 70, temperature 98.6. HEENT: Head is normocephalic. Eyes: Pupils normal. Conjunctivae normal. Nose and throat, normal. NECK: JVP low, carotid equal, thorax AP diameter normal. LUNGS: Clear. CARDIOVASCULAR: S1 and S2. Pacemaker site in left upper chest, healing well. ABDOMEN: Protuberant. No organomegaly. EXTREMITIES: No clubbing. No cyanosis. LABORATORY DATA: WBC 5.6, hemoglobin 12.1, hematocrit 36.1, platelet 67. Sugar 141. Lab work done on 02/19/2017 showed sodium 132, potassium 4.2, BUN 40, creatinine 1.2, random glucose 126, calcium 8.3, phosphorus 2.3, magnesium 2.2, total protein 5.8, albumin 3.1, globulin 2.7. Lumbar spine: Moderate central canal stenosis at L3-L4 and L4-L5. Multiple disc degenerative changes. DIAGNOSES: Coronary artery disease, status post *------* bypass surgery, five-vessel bypass in 2004, was admitted with new onset of atrial flutter with fibrillation with slow ventricular rate and despite stopping all pressors, the patient was still bradycardiac and the patient had pacemaker insertion. Next with the pacemaker insertion, patient became lethargic and WBC count went high and was found to have left lower lobe pneumonia, which is improving with antibiotic. Echo in 01/2016 showed ejection fraction of 65%, moderate TR, moderate TI, mild mitral regurgitation, normal ejection fraction of 55%. Last stress test was in 03/2015, negative for ischemia. The patient has urinary tract infection, diabetes, hypertension, hyperlipidemia, arthritis of the spine, and spinal stenosis. PLAN: Continue aspirin 81 mg daily, meropenem 1 g IV q.12 hours, Neurontin 100 mg b.i.d., amlodipine 10 mg daily. The patient is having burpings and we will put him on Protonix 40 p.o. daily. We will follow with you. Harpal Ng MD [facility] # [id number]
--- NOTE | 2017-02-22 03:28 | PN ---
DATE: 02/21/2017 ROOM: 269. BED: 2. REASON FOR CONSULTATION: Followup of tachy-julio c syndrome, sick sinus syndrome, atrial flutter with slow response, status post permanent pacemaker insertion. HISTORY OF PRESENT ILLNESS: An 86-year-old male with history of CABG, coronary artery bypass surgery, admitted with the new onset of atrial flutter with slow ventricular rate. The patient had pacemaker insertion. After pacemaker insertion, the patient became very lethargic, had elevated WBC, possible UTI, possible pneumonia. The patient was treated with antibiotics and the patient clinically improved. The patient denies any chest pain, shortness of breath, or palpitations. He is complaining of back pain and right inguinal pain. PHYSICAL EXAMINATION VITAL SIGNS: Blood pressure 131/62, respirations 18, pulse 65, temperature 98.3. HEENT: Head is normocephalic. Eyes: Pupils are normal, conjunctivae are slightly pale. NECK: JVP is low, carotids are equal. THORAX: AP diameter is normal. CARDIOVASCULAR: S1 and S2. LUNGS: Clear. ABDOMEN: Soft and nontender. No organomegaly. Bowel sounds are normal. EXTREMITIES: No clubbing, no cyanosis. LABORATORY DATA: WBC 7.2, hemoglobin 11.3, hematocrit 33.3, and platelets 72. Random sugar 195, sodium 132, potassium 4.2, BUN 40, creatinine 1.2. AST and ALT normal. Total protein and albumin normal. DIAGNOSES: 1. Sepsis. 2. Possible urinary tract infection. 3. Status post pacemaker insertion. 4. Possible heparin-induced thrombocytopenia. 5. Pneumonia. 6. Back pain. PLAN: The plan is to continue present therapy, and we will follow closely with you. Pacemaker site is healing well and pacemaker is functioning. Harpal Ng MD
--- NOTE | 2017-02-22 10:59 | DS ---
HISTORY OF PRESENT ILLNESS: The patient is 86-year-old male who was brought to the emergency room on 02/13/2017, since he was dizzy and he was found to be bradycardic. The patient has significant past medical history of: 1. Coronary artery disease status post open heart surgery. 2. Hypertension. 3. Noninsulin-dependent diabetes. 4. COPD. 5. Hyperlipidemia. HOSPITAL COURSE: He was started on dobutamine. Dr. Richard was consulted. The patient was admitted in the ICU and had pacemaker placed on 02/15/2017. Postprocedure, the patient developed urinary retention and got indwelling catheter placed. Urologist was involved. The patient became deconditioned, although prior to all these events, he was able to ambulate according to daughter, but now he is being transferred to TCU for rehab and further monitoring. PHYSICAL EXAMINATION: GENERAL: On examination today, he is sleepy, but arousable. VITAL SIGNS: He is afebrile. Pulse is 65, respirations are 18, and blood pressure is 131/62. LUNGS: Bilateral fair air flow. No rhonchi or crackle. HEART: S1 and S2 audible. ABDOMEN: Soft and nontender. No rebound and no guarding. NEUROLOGIC: The patient is awake and alert. Able to communicate, but has generalized weakness. Bilateral leg +1 edema. LABORATORY DATA: WBC is 7.2, hemoglobin is 11.3, hematocrit is 33, and platelets are 72. Chemistries; Blood sugar is 195, PT is 13.1, and INR is 1.12. ASSESSMENT AND PLAN: 1. Symptomatic bradycardia status post pacemaker placement. 2. Coronary artery disease status post open heart surgery. 3. Mild renal insufficiency. 4. Deconditioning and difficulty walking. 5. Noninsulin-dependent diabetes. PLAN: The patient will resume all his medications that he was receiving on acute care floor. He will be transferred to TCU for further rehab. Since he has a history of spinal stenosis and difficulty walking with significant degenerative disk disease, Dr. Rodriguez has been consulted also. Alejandra Castañeda MD [facility] # [id number]
--- NOTE | 2017-02-24 00:26 | PN ---
DATE: 02/22/2017 SUBJECTIVE: The patient is seen in his on the transitional care unit. He is feeling somewhat better. Still complaining of pain in his back and his right groin area. Beatty catheter remains in place. Draining clear urine. PHYSICAL EXAMINATION VITAL SIGNS: He is afebrile. Temp of 97.9, pulse 63, BP 122/59, and respirations 16. ABDOMEN: Soft, nontender, nondistended. There is no mass palpated. There is no CVA tenderness. There is no obvious mass in the right groin. Beatty catheter in place and normal-appearing phallus. Draining clear-colored urine. IMPRESSION AND PLAN: The patient is urogolically stable with the Beatty catheter in place. It is unclear where the back pain is coming from, but it does appear to be musculoskeletal. Urologically, I would leave the Beatty catheter in place now and the patient can continue his rehabilitation. Once the patient is improved from a cardiology standpoint and is able to stand and ambulate better, Beatty catheter should be removed for a voiding trial. The patient will then follow up in my office as an outpatient. I would repeat a urine culture if the Beatty catheter has been removed. The patient has been treated with meropenem for his prior urosepsis. Adair Santos MD
== END 2017-02-21 13:04 | DRG 242 ==
LOC: ED 12:43 → ERH 14:17 → CCU 17:32 → 2RNO 02-19 13:36
PROVIDERS: ADMIT Internal Medicine Nephrology; ATTEND Internal Medicine Nephrology
PROC: 0JH635Z Insertion of Pacemaker, Single Chamber Rate Responsive into Chest Subcutaneous Tissue and Fascia, Percutaneous Approach (ICD-10-PCS; principal; 2017-02-15)
PROC: 02HK3JZ Insertion of Pacemaker Lead into Right Ventricle, Percutaneous Approach (ICD-10-PCS; 2017-02-15)
PROC: 02HV33Z Insertion of Infusion Device into Superior Vena Cava, Percutaneous Approach (ICD-10-PCS; 2017-02-16)
PROC: B54MZZA Ultrasonography of Right Upper Extremity Veins, Guidance (ICD-10-PCS; 2017-02-16)
PROC: 0T9B70Z Drainage of Bladder with Drainage Device, Via Natural or Artificial Opening (ICD-10-PCS; 2017-02-16)
DX: I49.5 Sick sinus syndrome (principal); A41.9 Sepsis, unspecified organism; J18.9 Pneumonia, unspecified organism; R65.20 Severe sepsis without septic shock; N17.9 Acute kidney failure, unspecified; G93.41 Metabolic encephalopathy; I48.92 Unspecified atrial flutter; J44.0 Chronic obstructive pulmonary disease with (acute) lower respiratory infection; N39.0 Urinary tract infection, site not specified; I45.2 Bifascicular block; I48.0 Paroxysmal atrial fibrillation; I27.2 Other secondary pulmonary hypertension; E11.22 Type 2 diabetes mellitus with diabetic chronic kidney disease; I25.10 Atherosclerotic heart disease of native coronary artery without angina pectoris; E78.5 Hyperlipidemia, unspecified; T81.89XA Other complications of procedures, not elsewhere classified, initial encounter; R33.8 Other retention of urine; M51.36 Other intervertebral disc degeneration, lumbar region; M48.06 Spinal stenosis, lumbar region; N40.1 Benign prostatic hyperplasia with lower urinary tract symptoms; N18.9 Chronic kidney disease, unspecified; I12.9 Hypertensive chronic kidney disease with stage 1 through stage 4 chronic kidney disease, or unspecified chronic kidney disease; R26.2 Difficulty in walking, not elsewhere classified; Y83.4 Other reconstructive surgery as the cause of abnormal reaction of the patient, or of later complication, without mention of misadventure at the time of the procedure; E11.40 Type 2 diabetes mellitus with diabetic neuropathy, unspecified; F51.02 Adjustment insomnia; F41.9 Anxiety disorder, unspecified; B96.20 Unspecified Escherichia coli [E. coli] as the cause of diseases classified elsewhere; R12 Heartburn; I48.2 Chronic atrial fibrillation; D75.82 Heparin induced thrombocytopenia (HIT); T45.515A Adverse effect of anticoagulants, initial encounter; Y95 Nosocomial condition; E66.9 Obesity, unspecified; Z68.30 Body mass index [BMI] 30.0-30.9, adult; Z87.891 Personal history of nicotine dependence; Z95.5 Presence of coronary angioplasty implant and graft; Z95.1 Presence of aortocoronary bypass graft; Z79.84 Long term (current) use of oral hypoglycemic drugs; Z79.82 Long term (current) use of aspirin

== ENCOUNTER 2017-02-21 13:16 | Inpatient (IN) | payer OTHER, BC ==
[2017-02-21 14:59] VITALS: BMI 35.3
[2017-02-21] MEDS ORDERED: Alum-Mag Hydrox-Simethicone Susp (30 mL) PO PRN (15:01)
[2017-02-21] MEDS ORDERED: Albuterol 0.083% Inhal Sol (2.5 mg/3 mL) UD IH PRN (15:03)
[2017-02-21] MEDS ORDERED: Oxycodone/Acetaminophen 5/325 mg Tab PO PRN (15:27)
[2017-02-21] MEDS ORDERED: Simethicone 80 mg Chewtab PO PRN (15:29)
[2017-02-21] MEDS: Insulin Reg-LOW-Coverage SC SCH ×2 (17:37→21:53)
[2017-02-21] MEDS: RANEXA 500MG PO SCH (21:55)
[2017-02-21] MEDS ORDERED: Meropenem 1g/NS 100mL IVPB 1 GM/100 ML PIGGYBACK IVPB SCH (22:00)
[2017-02-22] MEDS: Pantoprazole 40 mg EC Tab PO SCH (05:38)
[2017-02-22] MEDS: Insulin Reg-LOW-Coverage SC SCH ×4 (06:32→22:46)
--- NOTE | 2017-02-22 07:22 | CP.PCM.CON ---
<Huyen Cordon - Last Filed: 02/22/17 13:20> History of Present Illness - History of Present Illness History of Present Illness: PGY2- Neurology progress note for Dr Sutherland. Reason for consult: LE weakness and back pain . Patient is an 86 y/o with pmh of CAD s/p CABG, AFIB, DM2, COPD, BPH with h/o turf, moderate L3-L4 and L4-L5 spinal stenosis whom initially presented [place] [facility] with [place]iness and was found to have symptomatic bradycardia s/p PPM on 02/15. Patient's hospital stay was complicated by sepsis with MOD 2nd to ecoli induced UTI. Neurology is being consulted for lower extremities weakness and back pain. Patient had CT head on 02/16 which revealed no acute ischemic changes. Patient is currently in TCU for rehab. Patient denies focal weakness, denies headache, denies cp or sob. Patient denies neck pain, denies dizziness when standing from lying to seating position. PMH: As stated above PSH: TURF, CABG, Abdominal surgery ( unknown reason) Social: former tobacco, denies alcohol and illicit drug use. Uses a cane at baseline to ambulate. Review of Systems - Review of Systems All systems: reviewed and no additional remarkable complaints except Review of Systems: All 12 points reviewed, all negative except as per HPI. Past Patient History - Infectious Disease Hx of Infectious Diseases: None - Tetanus Immunizations Tetanus Immunization: Up to Date - Past Social History Smoking Status: Former Smoker Alcohol: None Drugs: Denies - CARDIAC Hx Cardiac Disorders: Yes Hx Hypertension: Yes - PULMONARY Hx Chronic Obstructive Pulmonary Disease (COPD): Yes - NEUROLOGICAL Hx Paralysis: No - HEENT Hx HEENT Problems: No - RENAL Hx Chronic Kidney Disease: Yes - ENDOCRINE/METABOLIC Hx Diabetes Mellitus Type 2: Yes - HEMATOLOGICAL/ONCOLOGICAL Hx Blood Transfusions: No Hx Blood Transfusion Reaction: No - INTEGUMENTARY Hx Dermatological Problems: No - MUSCULOSKELETAL/RHEUMATOLOGICAL Hx Falls: No - GASTROINTESTINAL Hx Gastrointestinal Disorders: No - GENITOURINARY/GYNECOLOGICAL Hx Genitourinary Disorders: Yes Hx Reproductive Disorders: No - PSYCHIATRIC Hx Depression: No Hx Substance Use: No - SURGICAL HISTORY Hx Coronary Stent: Yes - ANESTHESIA Hx Anesthesia Reactions: No Hx Malignant Hyperthermia: No Meds Allergies/Adverse Reactions: Allergies Allergy/AdvReac Type Severity Reaction Status Date / Time pentazocine Allergy RASH Verified 02/12/17 13:02 - Medications Medications: Current Medications Acetaminophen (Tylenol 325mg Tab) 650 mg PO Q6H PRN PRN Reason: Pain, moderate (4-7) Last Admin: 02/21/17 18:01 Dose: 650 mg Al Hydrox/Mg Hydrox/Simethicone (Maalox Plus 30 Ml) 30 ml PO Q6H PRN PRN Reason: Indigestion / Heartburn Albuterol Sulfate (Albuterol 0.083% Inhal Ros (2.5 Mg/3 Ml) Ud) 2.5 mg IH [id number] PRN PRN Reason: Shortness of Breath Amlodipine Besylate (Norvasc) 10 mg PO DAILY [facility] Aspirin (Ecotrin) 81 mg PO 0800 ANAHY Gabapentin (Neurontin) 100 mg PO BID ANAHY PRN Reason: Protocol Last Admin: 02/21/17 17:38 Dose: 100 mg Home Med (Home Med) 1 unit PO Q12 [facility] Last Admin: 02/21/17 21:55 Dose: 1 unit Hydralazine HCl (Apresoline) 10 mg PO QID PRN PRN Reason: hypertension Meropenem 1g/NS 100mL IVPB (Meropenem 1g/Ns 100ml Ivpb) 1 gm in 100 mls @ 100 mls/hr IVPB 0600,1800 ANAHY PRN Reason: Protocol Stop: 02/24/17 06:01 Insulin Human Regular (Humulin R Low) 0 units SC ACHS ANAHY PRN Reason: Protocol Last Admin: 02/22/17 06:32 Dose: Not Given Oxycodone/Acetaminophen (Percocet 5/325 Mg Tab) 1 tab PO Q4H PRN PRN Reason: Pain, moderate (4-7) Stop: 02/24/17 15:28 Pantoprazole Sodium (Protonix Ec Tab) 40 mg PO 0600 [facility] Last Admin: 02/22/17 05:38 Dose: 40 mg Polyethylene Glycol (Miralax) 17 gm PO DAILY [facility] Simethicone (Mylicon Chew Tab) 80 mg PO PCHS PRN PRN Reason: GI distress Tamsulosin HCl (Flomax) 0.4 mg PO DAILY [facility] Last Admin: 02/22/17 05:38 Dose: 0.4 mg Physical Exam - Constitutional Appears: No Acute Distress, Chronically Ill - Head Exam Head Exam: ATRAUMATIC, NORMAL INSPECTION, NORMOCEPHALIC - Eye Exam Eye Exam: EOMI, Normal appearance, PERRL. absent: Nystagmus, Scleral icterus Pupil Exam: NORMAL ACCOMODATION, PERRL - ENT Exam ENT Exam: Mucous Membranes Moist, Normal Exam - Neck Exam Neck exam: Positive for: Normal Inspection - Respiratory Exam Respiratory Exam: Clear to Auscultation Bilateral, NORMAL BREATHING PATTERN. absent: Rales, Rhonchi, Wheezes - Cardiovascular Exam Cardiovascular Exam: REGULAR RHYTHM, +S1, +S2 - GI/Abdominal Exam GI & Abdominal Exam: Normal Bowel Sounds, Soft. absent: Tenderness - Extremities Exam Extremities exam: Positive for: pedal edema - Back Exam Back exam: muscle spasm (Lspine), NORMAL INSPECTION. absent: vertebral tenderness - Neurological Exam Neurological exam: Alert, CN II-XII Intact, Oriented x3, Reflexes Normal Additional comments: Speaking in full sentences, awake and alert x3. No facial asymmetry, Tongue midline, no atrophy. Normal finger to nose, no pronator drip, plantar reflexes normal. 5/5 flexion and extension motor strength b/l upper and lower extremities. No tremors, no rigidity. + 2 patella, achilles tendon, biceps, and brachioradialis reflexes b/l. Normal DTRs. Sensation to dull objects in the upper extremities and face intact. + gait instability - Psychiatric Exam Psychiatric exam: Normal Affect, Normal Mood - Skin Skin Exam: Dry, Warm Results - Labs Labs: Laboratory Results - last 24 hr 02/21/17 02/21/17 02/22/17 17:07 20:59 05:53 POC Glucose (mg/dL) 176 H 242 H 141 H Assessment & Plan - Assessment and Plan (Free Text) Assessment: Patient is an 86 y/o with pmh of CAD s/p CABG, AFIB, DM2, COPD, BPH with h/o turf, moderate L3-L4 and L4-L5 spinal stenosis whom initially presented [place] [facility] [place] and was found to have symptomatic bradycardia s/p PPM on 02/15. Patient's hospital stay was complicated by sepsis with MOD 2nd to ecoli induced UTI. Neurology was consulted for lower extremities weakness and back pain. Patient is currently in TCU for rehab. Impression: Lower extremities weakness likely 2nd to deconditioned state causing worsening of spinal stenosis. Plan: - Continue with PT - Continue with gabapentin 100 mg bid - Asa for stroke prevention - Patient is neurologically stable - Thank you for consulting Dr. Sutherland. Patient, seen, examined, discussed with Dr Sutherland. - Date & Time Date: 02/22/17 Time: 07:30 <Franck Sutherland - Last Filed: 02/22/17 14:58> Meds - Medications Medications: Current Medications Acetaminophen (Tylenol 325mg Tab) 650 mg PO Q6H PRN PRN Reason: Pain, moderate (4-7) Last Admin: 02/22/17 09:49 Dose: 650 mg Al Hydrox/Mg Hydrox/Simethicone (Maalox Plus 30 Ml) 30 ml PO Q6H PRN PRN Reason: Indigestion / Heartburn Albuterol Sulfate (Albuterol 0.083% Inhal Ros (2.5 Mg/3 Ml) Ud) 2.5 mg IH [id number] PRN PRN Reason: Shortness of Breath Amlodipine Besylate (Norvasc) 10 mg PO DAILY [facility] Last Admin: 02/22/17 09:47 Dose: 10 mg Aspirin (Ecotrin) 81 mg PO 0800 [facility] Last Admin: 02/22/17 08:39 Dose: 81 mg Gabapentin (Neurontin) 100 mg PO BID ANAHY PRN Reason: Protocol Last Admin: 02/22/17 09:47 Dose: 100 mg Home Med (Home Med) 1 unit PO Q12 [facility] Last Admin: 02/22/17 09:46 Dose: 1 unit Hydralazine HCl (Apresoline) 10 mg PO QID PRN PRN Reason: hypertension Meropenem 1g/NS 100mL IVPB (Meropenem 1g/Ns 100ml Ivpb) 1 gm in 100 mls @ 100 mls/hr IVPB 0600,1800 ANAHY PRN Reason: Protocol Stop: 02/24/17 06:01 Last Admin: 02/22/17 07:31 Dose: 100 mls/hr Insulin Human Regular (Humulin R Low) 0 units SC ACHS ANAHY PRN Reason: Protocol Last Admin: 02/22/17 13:39 Dose: 1 units Oxycodone/Acetaminophen (Percocet 5/325 Mg Tab) 1 tab PO Q4H PRN PRN Reason: Pain, moderate (4-7) Stop: 02/24/17 15:28 Pantoprazole Sodium (Protonix Ec Tab) 40 mg PO 0600 [facility] Last Admin: 02/22/17 05:38 Dose: 40 mg Polyethylene Glycol (Miralax) 17 gm PO DAILY [facility] Last Admin: 02/22/17 09:46 Dose: 17 gm Simethicone (Mylicon Chew Tab) 80 mg PO [facility] PRN PRN Reason: GI distress Tamsulosin HCl (Flomax) 0.4 mg PO 1999 [facility] Results - Vital Signs Recent Vital Signs: Last Vital Signs Temp 97.9 F 02/22/17 10:00 Pulse 63 02/22/17 10:00 Resp 12 02/22/17 10:00 BP 122/59 L 02/22/17 10:00 Pulse Ox 100 02/22/17 10:00 - Labs Labs: Laboratory Results - last 24 hr 02/21/17 02/21/17 02/22/17 17:07 20:59 05:53 POC Glucose (mg/dL) 176 H 242 H 141 H Attending/Attestation - Attestation I have personally seen and examined this patient.: Yes I have fully participated in the care of the patient.: Yes I have reviewed all pertinent clinical information: Yes
[2017-02-22] MEDS: Meropenem 1g/NS 100mL IVPB 1 GM/100 ML PIGGYBACK IVPB SCH ×2 (07:31→17:48)
[2017-02-22] MEDS: RANEXA 500MG PO SCH ×2 (09:46→21:59)
[2017-02-22] MEDS: POLYETHYLENE GLYCOL 3350 17 GM/Dose PACKET PO SCH (09:46)
--- NOTE | 2017-02-22 13:56 | CP.PCM.CON ---
History of Present Illness - History of Present Illness History of Present Illness: 86 year old male with PMH of CAD S/P CABG, HTN, atrial fibrillation, COPD, DM, obesity with BMI 35 was initially admitted in [facility] because of symptomatic bradycardia. He underwent pacemaker placement and did well. He however developed left lower lobe healthcar-associated pneumonia and was briefly in the ICU. He improved clinically with antibiotics and is now transferred to [facility] for continued medical therapy and physical rehab. Currently he is comfortable, afebrile overnight, denies headache or dizziness, no no chest pain, no nausea or vomiting, no abdominal pain, no diarrhea, no dysuria. Infectious Diseases consult is requested to continue his antibiotic therapy. Review of Systems - Review of Systems All systems: reviewed and no additional remarkable complaints except (as per HPI ) Past Patient History - Infectious Disease Hx of Infectious Diseases: None - Tetanus Immunizations Tetanus Immunization: Up to Date - Past Social History Smoking Status: Former Smoker - CARDIAC Hx Cardiac Disorders: Yes Hx Hypertension: Yes - PULMONARY Hx Chronic Obstructive Pulmonary Disease (COPD): Yes - NEUROLOGICAL Hx Paralysis: No - HEENT Hx HEENT Problems: No - RENAL Hx Chronic Kidney Disease: Yes - ENDOCRINE/METABOLIC Hx Diabetes Mellitus Type 2: Yes - HEMATOLOGICAL/ONCOLOGICAL Hx Blood Transfusions: No Hx Blood Transfusion Reaction: No - INTEGUMENTARY Hx Dermatological Problems: No - MUSCULOSKELETAL/RHEUMATOLOGICAL Hx Falls: No - GASTROINTESTINAL Hx Gastrointestinal Disorders: No - GENITOURINARY/GYNECOLOGICAL Other/Comment: TURP - PSYCHIATRIC Hx Depression: No Hx Substance Use: No - SURGICAL HISTORY Hx Coronary Stent: Yes - ANESTHESIA Hx Anesthesia Reactions: No Hx Malignant Hyperthermia: No Meds Allergies/Adverse Reactions: Allergies Allergy/AdvReac Type Severity Reaction Status Date / Time pentazocine Allergy RASH Verified 02/12/17 13:02 - Medications Medications: Current Medications Acetaminophen (Tylenol 325mg Tab) 650 mg PO Q6H PRN PRN Reason: Pain, moderate (4-7) Al Hydrox/Mg Hydrox/Simethicone (Maalox Plus 30 Ml) 30 ml PO Q6H PRN PRN Reason: Indigestion / Heartburn Albuterol Sulfate (Albuterol 0.083% Inhal Ros (2.5 Mg/3 Ml) Ud) 2.5 mg IH [id number] PRN PRN Reason: Shortness of Breath Amlodipine Besylate (Norvasc) 10 mg PO DAILY [facility] Aspirin (Ecotrin) 81 mg PO 0800 ANAHY Gabapentin (Neurontin) 100 mg PO BID ANAHY PRN Reason: Protocol Home Med (Home Med) 1 unit PO Q12 ANAHY Hydralazine HCl (Apresoline) 10 mg PO QID PRN PRN Reason: hypertension Meropenem 1g/NS 100mL IVPB (Meropenem 1g/Ns 100ml Ivpb) 1 gm in 100 mls @ 100 mls/hr IVPB Q12 ANAHY PRN Reason: Protocol Stop: 02/23/17 22:01 Insulin Human Regular (Humulin R Low) 0 units SC ACHS ANAHY PRN Reason: Protocol Oxycodone/Acetaminophen (Percocet 5/325 Mg Tab) 1 tab PO Q4H PRN PRN Reason: Pain, moderate (4-7) Stop: 02/24/17 15:28 Pantoprazole Sodium (Protonix Ec Tab) 40 mg PO 0600 [facility] Polyethylene Glycol (Miralax) 17 gm PO DAILY [facility] Simethicone (Mylicon Chew Tab) 80 mg PO PCHS PRN PRN Reason: GI distress Tamsulosin HCl (Flomax) 0.4 mg PO DAILY [facility] Physical Exam - Constitutional Appears: Non-toxic, No Acute Distress - Head Exam Head Exam: NORMAL INSPECTION - Neck Exam Neck exam: Negative for: Meningismus - Respiratory Exam Respiratory Exam: Decreased Breath Sounds - Cardiovascular Exam Cardiovascular Exam: +S1, +S2 - GI/Abdominal Exam GI & Abdominal Exam: Soft. absent: Tenderness Assessment & Plan - Assessment and Plan (Free Text) Plan: Assessment sepsis due to left sided healthcare-associated pneumonia with possible gram positive cocci and/or gram negative bacilli, clinically improving acute thrombocytopenia, R/O heparin-induced S/P permanent pacemaker placement CAD S/P CABG HTN atrial fibrillation COPD DM obesity with BMI 30 Plan continue Merrem day 6 to complete 4-7 days of therapy; initial urine cx showed E. coli but the patient did not complain of urinary symptoms; reviewed CT chest which showed the infiltrates in the left lung - will d/c antibiotics by tomorrow CT of the lumbar spine is showing central canal stenosis and disc degeneration will continue to monitor clinically
[2017-02-22 17:13] LABS: BASO # 0.02 K/mm3 (0.0-2.0); BASO % 0.3 % (0.0-3.0); EOS # 0.2 (0.0-0.7); EOS % 2.8 % (1.5-5.0); GRAN # 4.61 (1.4-6.5); GRAN % 70.6 % (50.0-68.0); HEMOGLOBIN 11.7 gm/dL (14.0-18.0); LYMPH # 0.9 (1.2-3.4); LYMPH % 14.2 % (22.0-35.0); MEAN CELL VOLUME 89.4 fL (80.0-105.0); MEAN CORPUSCULAR HEMOGLOBIN 30.9 pg (25.0-35.0); MEAN CORPUSCULAR HGB CONC 34.5 g/dl (31.0-37.0); MEAN PLATELET VOLUME 10.2 fl (7.0-11.0); MONO # 0.8 (0.1-0.6); MONO % 12.1 % (1.0-6.0); PLATELET COUNT 94 10^3/uL (120.0-450.0); RBC 3.79 10^6/uL (3.5-6.1); RED CELL DISTRIBUTION WIDTH 14.5 % (11.5-14.5); WHITE BLOOD COUNT 6.5 10^3/ul (4.5-11.0)
[2017-02-22 17:18] LABS: ALB/GLOB RATIO 1.1 (1.1-1.8); ALT/SGPT 44 U/L (7-56); AST/SGOT 28 U/L (15-59); BLOOD UREA NITROGEN 34 mg/dL (7-21); GFR AFRICAN-AMERICAN > 60; GFR NON-AFRICAN AMERICAN > 60
--- NOTE | 2017-02-23 02:44 | PN ---
DATE: 02/22/2017 SUBJECTIVE: The patient has no complaints of any chest pain. No shortness of breath. No headaches. No dizziness. The patient's initial H&P was reviewed and I do agree with this. PHYSICAL EXAMINATION: VITAL SIGNS: Temperature is 97.9, pulse of 71, blood pressure is 129/75, respirations 18. HEENT: Anicteric sclerae. Moist mucosa. No oral lesions. NECK: No JVD, adenopathy or thyromegaly. CARDIOPULMONARY: S1, S2, regular. No murmurs, rubs or gallops. LUNGS: Good bilateral air entry. No wheezes, rales or rhonchi. ABDOMEN: Bowel sounds are positive, soft, nontender, nondistended. EXTREMITIES: Lower extremity; no edema, 2+ pulses, full range of motion x4. LABORATORY DATA: White count of 6.5, hemoglobin 11.7, platelet counts 94,000, creatinine is 1.1. ASSESSMENT: 1. Thrombocytopenia. 2. Hypertension. 3. Diabetes type 2. 4. Chronic obstructive pulmonary disease. 5. Dyslipidemia. 6. Coronary artery disease. 7. Symptomatic bradycardia status post pacemaker placement. 8. Gait dysfunction. 9. Spinal stenosis. PLAN: The patient is calm and comfortable. He is going to be on hydralazine. He is on aspirin for his coronary artery disease. He is receiving Flomax, because he had urinary retention. The patient is on meropenem for antibiotics. He is on simethicone. The patient is going to continue Neurontin and Norvasc for hypertension. Randall Mccracken MD
[2017-02-23] MEDS: Meropenem 1g/NS 100mL IVPB 1 GM/100 ML PIGGYBACK IVPB SCH (06:09)
[2017-02-23] MEDS: Pantoprazole 40 mg EC Tab PO SCH (06:10)
[2017-02-23] MEDS: Insulin Reg-LOW-Coverage SC SCH ×4 (06:37→21:34)
--- NOTE | 2017-02-23 07:52 | CON ---
DATE: 02/22/2017 CONSULT SERVICE: Cardiology. REASON FOR CONSULTATION: Followup continuity of the care in transitional care unit, where the patient was initially admitted on the floor with atrial flutter, slow ventricular rate. BRIEF CLINICAL HISTORY: An 86-year-old male with past medical history significant for coronary artery disease status post CABG, who initially admitted on 02/12/2017 with atrial flutter with slow ventricular rate. Patient is on beta alessia, observed for 48 hours, and after this, the patient had a pacemaker. Postop, patient had urinary tract infection, sepsis, treated on the floor, now patient is transferred to the transitional care unit for continued care. History of TIFFANY cardioversion in 12/2011. PAST MEDICAL HISTORY: Significant for CABG, coronary artery disease in 12/2004 x5 vessel bypass; status post cath in 01/2007, [place] triple vessel disease, patent MCKEON to LAD, patent SVG to diagonal 1, patent OM1 and LPDA. SVG to ramus has 70% stenosis, not suitable for PCI; had 5 vessel bypass - MCKEON to LAD, saphenous graft to diagonal 1, saphenous graft to OM1, saphenous graft to LPDA and saphenous graft to ramus. Preserved LV function, medical treatment recommended. Type 2 diabetes, hypertension, hyperlipidemia, status post TIFFANY cardioversion. Recent cardiac workup as follows. Echo 01/2016 ejection fraction 50-55%, dilated LA and RA, moderate AR, moderate TR and PI, mild MR, RV systolic pressure 55. Stress test 03/2015, negative for ischemia, ejection fraction 54%. Repeat echo on this admission 02/13/2017 shows ejection fraction of 55%, [id number] mitral regurgitation, moderate tricuspid regurg, RV systolic pressure 54, aortic root is mildly dilated, trace aortic regurgitation. REVIEW OF SYSTEMS: As per HPI. CURRENT MEDICATIONS: Patient is taking metformin, *------*, Ranexa, Spiriva, omeprazole, gabapentin, aspirin, albuterol. ALLERGIES: PENTAZOCINE. PHYSICAL EXAMINATION: VITAL SIGNS: Temperature afebrile, herat rate 71, blood pressure 109/75. HEENT: PERRLA, intact. NECK: Supple. No carotid bruit. No thyromegaly. CHEST: Clear to auscultation. HEART: S1, S2, regular. ABDOMEN: Soft. EXTREMITIES: Clubbing and cyanosis negative. LABORATORY DATA: Blood workup as follows. WBC 7.8, hemoglobin 11.3, hematocrit 33.3, platelet count 72. Chemistries showed sodium 132, potassium 4.2, chloride 99, carbon dioxide 24, anion gap of 13, BUN of 40, creatinine 1.2. IMPRESSION: Atrial fibrillation/flutter; slow ventricular rate; sick sinus syndrome; status post permanent pacemaker; urosepsis; coronary artery disease; coronary artery bypass grafting 2001, 5 vessels; history of recent echocardiogram, preserved left ventricular function; diabetes; hypertension; hyperlipidemia; thrombocytopenia; heparin-induced platelet antibody negative. RECOMMENDATION: Continue albuterol, aspirin, insulin, amlodipine, low-dose beta alessia as blood pressure is tolerated. For abnormal heart rate, we will get a EKG. We are going to start anticoagulation for this patient *[id number]*. If remains in still atrial flutter/fib, consider restarting anticoagulation, consider TIFFANY cardioversion when stable. We will get EKG in the morning. We will follow with you. Thank you *------* taking care of Clare Bonilla. Harpal Richard MD
[2017-02-23] MEDS: RANEXA 500MG PO SCH ×2 (10:38→21:33)
[2017-02-23] MEDS: POLYETHYLENE GLYCOL 3350 17 GM/Dose PACKET PO SCH (10:38)
--- NOTE | 2017-02-23 16:16 | PN ---
DATE: 02/23/2017 REASON FOR CONSULTATION: Followup continuity of care in the transitional care unit admitted with atrial flutter with slow ventricular response status post permanent pacemaker, and urosepsis. BRIEF CLINICAL HISTORY: An 86-year-old male with a past medical history significant for coronary artery disease with CABG, in the past admitted with atrial flutter with slow ventricular response. He has had a permanent pacemaker, this was complicated with UTI, now the patient transitioned the care to the continuity of care. Denies any chest pain, shortness of breath, or any palpitations. EKG this morning showed *------* underlying atrial flutter. PHYSICAL EXAMINATION: VITAL SIGNS: As follows; temperature afebrile, heart rate 70, and blood pressure 146/77. HEENT: PERRLA. Extraocular muscles are intact. NECK: Supple. No carotid bruit or thyromegaly. CHEST: Clear to auscultation. HEART: S1 and S2 regular. ABDOMEN: Soft. EXTREMITIES: Clubbing and cyanosis negative. LABORATORY DATA: Blood workup as follows: WBC 6.5, hemoglobin 11.3, hematocrit 33.9, and platelet count 94. Chemistry shows sodium 135, potassium 4.7, chloride 104, carbon dioxide 20, anion gap of 13, BUN 30, and creatinine of 1.1. EKG shows AV paced rhythm with underlying atrial flutter. IMPRESSION: An 86-year-old male with a past medical history significant for coronary artery disease status post coronary artery bypass graft in 2004, five-vessels associated with repeat catheterization on 01/18/2007, [place] triple vessel disease. Patent left internal mammary artery to left anterior descending, patent saphenous vein graft to diagonal 1, patent saphenous vein graft to obtuse marginal 1, patent saphenous vein graft to *------* and patent saphenous vein graft to ramus, but has a 70% stenosis not suitable for percutaneous coronary intervention, medical treatment recommended. History of atrial fibrillation status post T cardioversion in 2011. Admitted at this time with atrial flutter with slow ventricular response with permanent pacemaker, and urosepsis. RECOMMENDATION: We will give low dose of anticoagulation, Eliquis, and we will bring him back. The patient with possible discharge this weekend and bring him back in two weeks on Eliquis for T cardioversion. Discussed with the daughter, Sharath Soni, if the patient convert to sinus rhythm preventing the long time anticoagulation. We will follow up with you. The patient's platelet antibody was negative and platelet count was improved to 94,000. We will follow up with you. Harpal Richard MD
--- NOTE | 2017-02-23 19:24 | CARD ---
APPROVED REPORT EKG Measurement Heart [id number] <Conclusion> Demand pacemaker, interpretation is based on intrinsic rhythm Atrial flutter with variable AV block with premature ventricular or aberrantly conducted complexes Left axis deviation Right bundle branch block Abnormal ECG
--- NOTE | 2017-02-23 20:20 | PN ---
DATE: 02/23/2017 SUBJECTIVE: The patient is seen early this morning in room 318. The patient is in no acute distress, nontoxic. PHYSICAL EXAMINATION VITAL SIGNS: Temperature is 97, blood pressure is 120/60, respiratory rate of 18. HEENT: Unremarkable. NECK: Supple. LUNGS: Decreased breath sounds. HEART: Normal S1 and S2. ABDOMEN: Soft and nontender. LABORATORY DATA: Reveals a white count of 6.5, hemoglobin of 11, platelets of 94. Chemistries are noted. Microbiology is noted. ASSESSMENT AND PLAN: He is an 86-year-old male with sepsis due to left-sided healthcare-associated pneumonia for possible gram-positive cocci versus possible gram-negative greer, much improved. The patient developed acute thrombocytopenia and also is status post permanent pacemaker in a patient with coronary artery disease and history of coronary artery bypass graft, and today is day #7 of meropenem for the sepsis. We will discontinue meropenem and the patient is at risk for developing nosocomial infections and is at risk for developing new infections. The patient is afebrile with normal white count. Follow with you. Jasson Seaman MD
[2017-02-24] MEDS: Insulin Reg-LOW-Coverage SC SCH ×4 (06:33→21:59)
[2017-02-24] MEDS: Pantoprazole 40 mg EC Tab PO SCH (06:35)
[2017-02-24] MEDS: POLYETHYLENE GLYCOL 3350 17 GM/Dose PACKET PO SCH (09:49)
[2017-02-24] MEDS: RANEXA 500MG PO SCH ×2 (09:49→21:10)
--- NOTE | 2017-02-24 10:39 | PN ---
SUBJECTIVE: The patient has no complaints of any chest pain or shortness of breath. No headaches or dizziness. PHYSICAL EXAMINATION: VITAL SIGNS: Temperature is 97.2, pulse is 60, blood pressure is 116/66, respirations 16. HEENT: Anicteric sclerae. Moist mucosa. NECK: No JVD, adenopathy, or thyromegaly. CARDIOVASCULAR: S1 and S2 is regular. No murmurs, rubs, or gallops. Left-sided pacemaker. LUNGS: Clear to auscultation bilaterally. No wheezes, rales, or rhonchi. ABDOMEN: Bowel sounds are positive. Soft, nontender and nondistended. No hepatosplenomegaly. EXTREMITIES: Lower extremity; full range of motion. 2+ pulses. LABORATORY DATA: White count of 6.5, hemoglobin 11.7. Creatinine is 1.1. ASSESSMENT: 1. Thrombocytopenia. 2. Hypotension. 3. Diabetes type 2. 4. Chronic obstructive pulmonary disease. 5. Dyslipidemia. 6. Coronary artery disease. 7. Gait dysfunction. 8. Spinal stenosis. 9. Status post pacemaker placement. PLAN: The patient is calm and comfortable. He is on aspirin. The patient is on apixaban for his atrial fibrillation, on anticoagulation. He is going to continue with Flomax. He is going to be on Neurontin for his neuropathy and Norvasc for hypertension. He is receiving Percocet for pain. The patient is on Protonix. He is going to be on his heart healthy diet. He is finished with his antibiotics. Randall Mccracken MD
--- NOTE | 2017-02-24 22:57 | CP.PCM.PN ---
Subjective - Date & Time of Evaluation Date of Evaluation: 02/24/17 Time of Evaluation: 22:53 - Subjective Subjective: Patient's joya was removed this morning, retention of 900ml noticed by the nursing, 16 was attempted with partly in and resistance noticed by the nurse without drainage, cuff was not inflated, confirmed with the nurse. Upon eval patient not in much distress, but anxious. Joya cuff not inflated and easily mobile, aseptic conditions still maintained. I further continued my attempt to insert joya, no resistance met, urine flow noticed in catheter, it was inserted all the way, then cuff inflated. Noticed clear urine still flowing out , cath secured by the leg band. Objective - Vital Signs/Intake and Output Vital Signs (last 24 hours): Temp Pulse Resp BP Pulse Ox 97.8 F 67 14 132/78 96 02/24/17 10:00 02/24/17 17:39 02/24/17 16:00 02/24/17 17:39 02/24/17 16:00 - Medications Medications: Current Medications Acetaminophen (Tylenol 325mg Tab) 650 mg PO Q6H PRN PRN Reason: Pain, moderate (4-7) Last Admin: 02/23/17 17:41 Dose: 650 mg Al Hydrox/Mg Hydrox/Simethicone (Maalox Plus 30 Ml) 30 ml PO Q6H PRN PRN Reason: Indigestion / Heartburn Albuterol Sulfate (Albuterol 0.083% Inhal Ros (2.5 Mg/3 Ml) Ud) 2.5 mg IH [id number] PRN PRN Reason: Shortness of Breath Amlodipine Besylate (Norvasc) 10 mg PO DAILY [facility] Last Admin: 02/24/17 09:50 Dose: 10 mg Apixaban (Eliquis) 2.5 mg PO BID [facility] PRN Reason: Protocol Last Admin: 02/24/17 17:36 Dose: 2.5 mg Aspirin (Ecotrin) 81 mg PO 0800 [facility] Last Admin: 02/24/17 08:03 Dose: 81 mg Gabapentin (Neurontin) 100 mg PO BID [facility] PRN Reason: Protocol Last Admin: 02/24/17 17:40 Dose: 100 mg Home Med (Home Med) 1 unit PO Q12 [facility] Last Admin: 02/24/17 21:10 Dose: 1 unit Insulin Human Regular (Humulin R Low) 0 units SC ACHS [facility] PRN Reason: Protocol Last Admin: 02/24/17 21:59 Dose: Not Given Metoprolol Tartrate (Lopressor) 25 mg PO 0800,1800 [facility] Last Admin: 02/24/17 17:39 Dose: 25 mg Pantoprazole Sodium (Protonix Ec Tab) 40 mg PO 0600 [facility] Last Admin: 02/24/17 06:35 Dose: 40 mg Polyethylene Glycol (Miralax) 17 gm PO DAILY [facility] Last Admin: 02/24/17 09:49 Dose: 17 gm Simethicone (Mylicon Chew Tab) 80 mg PO [facility] PRN PRN Reason: GI distress Tamsulosin HCl (Flomax) 0.4 mg PO 1999 [facility] Last Admin: 02/24/17 21:10 Dose: 0.4 mg - Labs Labs: 02/22/17 16:50 02/22/17 16:50
--- NOTE | 2017-02-24 23:40 | PN ---
DATE: 02/24/2017 REASON FOR CONSULTATION: Followup continuity of care in the transitional care unit. BRIEF CLINICAL HISTORY: This is an 86-year-old male with a past medical history significant for coronary artery disease with CABG, admitted with atrial flutter with slow ventricular rate. He is status post permanent pacemaker placed. Hospital course was complicated by UTI, sepsis, treated with IV antibiotic, now the patient is in transitional care unit for continuity of care. Denies any chest pain, shortness of breath or any palpitations. Feels a lot better getting rehab. PHYSICAL EXAMINATION: As follows: VITAL SIGNS: Temperature afebrile, heart rate 60, blood pressure 121/67. HEENT: PERRLA. Extraocular muscles are intact. NECK: Supple. No carotid bruit or thyromegaly. CHEST: Clear to auscultation. HEART: S1 and S2 regular. ABDOMEN: Soft. EXTREMITIES: Clubbing or cyanosis negative. LABORATORY DATA: Blood workup as follows; WBC 6.5, hemoglobin 11.3, hematocrit 33.9, platelet count 94. Chemistry show a sodium of 135, potassium 4.7, chloride 104, carbon dioxide 20, anion gap of 30, BUN 30, creatinine 1.1. IMPRESSION: New onset of atrial flutter, slow ventricular response with permanent pacemaker, coronary artery disease, coronary artery bypass graft, urinary tract infection, deconditioning of the body, urosepsis, last catheterization on 01/18/2017, [place] triple vessel disease. Patent left internal mammary artery to left anterior descending artery, patent saphenous graft to diagonal 1, patent saphenous graft to the obtuse marginal 1, patent saphenous venous graft to ramus and/or PDA. Since the patient has atrial flutter, we started on Eliquis. RECOMMENDATION: Continue Eliquis. Discussed with patient's daughter and patient. Will bring the patient in two weeks after getting discharged as an outpatient *------* cardioversion. Interim continue Eliquis 2.5 mg b.i.d. dose. Continue baby aspirin. Continue metoprolol 25 mg twice a day. We will follow with you. Thank you *------* for the opportunity of taking care of the patient, Chad Sparks. Harpal Richard MD [facility] # [id number]
--- NOTE | 2017-02-25 00:36 | PN ---
DATE: 02/24/2017 SUBJECTIVE: The patient is in bed, in no acute distress, nontoxic. PHYSICAL EXAMINATION: VITAL SIGNS: Temperature is 97, blood pressure is 120/60, respiratory rate of 18. HEENT: Unremarkable. NECK: Supple. LUNGS: Decreased breath sounds. HEART: Normal S1 and S2. ABDOMEN: Soft. LABORATORY DATA: Reveals a white count of 6.5, hemoglobin of 11, platelets of 94. Chemistries reveal the patient's creatinine is 1.1. Review of the orders reveal the patient to be off the antibiotics. ASSESSMENT AND PLAN: This is an 86-year-old with sepsis due to left-sided healthcare-associated pneumonia, possible gram-positive cocci, possible gram-negative greer, developed acute thrombocytopenia and also with a history of pacemaker and coronary artery disease with history of coronary bypass graft and also off antibiotics, afebrile. We will follow with you. Jasson Seaman MD
[2017-02-25] MEDS: Pantoprazole 40 mg EC Tab PO SCH (05:35)
[2017-02-25 07:06] LABS: BLOOD UREA NITROGEN 29 mg/dL (7-21); CALCIUM 8.9 mg/dL (8.4-10.5); GFR AFRICAN-AMERICAN > 60; GFR NON-AFRICAN AMERICAN > 60
[2017-02-25 07:29] LABS: BASO # 0.02 K/mm3 (0.0-2.0); BASO % 0.3 % (0.0-3.0); EOS # 0.2 (0.0-0.7); EOS % 2.7 % (1.5-5.0); GRAN # 5.69 (1.4-6.5); GRAN % 72.2 % (50.0-68.0); HEMOGLOBIN 11.2 gm/dL (14.0-18.0); LYMPH # 1.3 (1.2-3.4); LYMPH % 16.6 % (22.0-35.0); MEAN CELL VOLUME 91.5 fL (80.0-105.0); MEAN CORPUSCULAR HEMOGLOBIN 30.6 pg (25.0-35.0); MEAN CORPUSCULAR HGB CONC 33.4 g/dl (31.0-37.0); MEAN PLATELET VOLUME 9.4 fl (7.0-11.0); MONO # 0.7 (0.1-0.6); MONO % 8.2 % (1.0-6.0); PLATELET COUNT 135 10^3/uL (120.0-450.0); RBC 3.66 10^6/uL (3.5-6.1); RED CELL DISTRIBUTION WIDTH 14.9 % (11.5-14.5); WHITE BLOOD COUNT 7.9 10^3/ul (4.5-11.0)
[2017-02-25] MEDS: Insulin Reg-LOW-Coverage SC SCH ×4 (08:17→22:03)
[2017-02-25] MEDS: RANEXA 500MG PO SCH ×2 (09:12→21:08)
[2017-02-25] MEDS: POLYETHYLENE GLYCOL 3350 17 GM/Dose PACKET PO SCH (09:12)
[2017-02-25 17:06] VITALS: RESP 18
--- NOTE | 2017-02-25 20:25 | PN ---
DATE OF SERVICE: 02/25/2017 REASON FOR CONSULTATION: Followup for continued care in Transitional Care Unit, status post permanent pacemaker. BRIEF CLINICAL HISTORY: An 86-year-old male with a past medical history significant for coronary artery disease with CABG, had AFib/flutter, requiring pacemaker. The patient underwent pacemaker. Hospital course complicated by UTI. The patient is now at Transitional Care Unit, feels a lot better, getting rehab. PHYSICAL EXAMINATION: VITAL SIGNS: Temperature afebrile, heart rate 60, and blood pressure 128/71. HEENT: PERRLA, intact. NECK: Supple. No carotid bruit or thyromegaly. CHEST: Clear to auscultation. HEART: S1 and S2 regular. ABDOMEN: Soft. EXTREMITIES: Clubbing and cyanosis negative. LABORATORY DATA: WBC 7.9, hemoglobin 11.2, hematocrit 33.5, platelet count 135. Chemistry shows sodium 130, potassium 4.9, chloride 103, carbon dioxide 29, anion gap of 13, BUN 29, and creatinine of 1.1. IMPRESSION: Urinary tract infection, sepsis, sick sinus syndrome, atrial fibrillation/flutter, bradycardia, history of permanent pacemaker, coronary artery disease, deconditioning of the body, last catheterization on 01/18/2017, [place] triple vessel disease, patent left internal mammary artery to left anterior descending artery, patent saphenous graft to diagonal 1, patent saphenous graft to the obtuse marginal 1, patent saphenous venous graft to the ramus and posterior descending artery. Recently, the patient had atrial fibrillation/flutter, admitted with atrial fibrillation/flutter, status post permanent pacemaker. RECOMMENDATION: Continue Eliquis. Simplify the drug regimen. The patient was at home on hydrochlorothiazide, we will resume back. It was held because the patient was hypotensive, given IV fluid. We will discontinue aspirin for now to prevent any risk of bleeding just to get rid of the habit of aspirin and Eliquis. Eliquis is started yesterday, so we will discontinue aspirin today. We will continue renal adjusted Eliquis, continue beta-alessia, start hydrochlorothiazide Wednesday, Wednesday, Wednesday as blood pressure stable. DISCHARGE PLANNING: The patient will be scheduled as outpatient for TIFFANY cardioversion on 03/29/2017, , at 10 o'clock. Thank you *------* for opportunity in taking care of this patient. Harpal Richard MD cc: *------*
--- NOTE | 2017-02-26 04:14 | PN ---
DATE: 02/25/2017 SUBJECTIVE: The patient is in bed, in no acute distress. He was seen early this morning in room 318 and is doing well. No nausea or vomiting. No fevers. PHYSICAL EXAMINATION: VITAL SIGNS: Temperature is 98, blood pressure is 113/70 and respiratory rate of 18. HEENT: Unremarkable. NECK: Supple. LUNGS: Decreased breath sounds. HEART: Normal S1 and S2. ABDOMEN: Soft, nontender. LABORATORY DATA: Laboratory examination reveals a white count of 7.9, hemoglobin of 11 and platelets of 135. BUN of 29 and creatinine of 1.1. ASSESSMENT AND PLAN: This is an 86-year-old with sepsis *------* healthcare associated possible gram-positive cocci, possible gram-negative greer, developed acute thrombocytopenia and also history of a pacemaker and coronary artery disease and currently off antibiotics. The patient has had coronary bypass graft. He is currently off antibiotics, afebrile, and review of orders reveal the patient to be off of antibiotics. He is at risk for developing nosocomial infections. Jasson Seaman MD
[2017-02-26 05:33] VITALS: TEMP 97.6; O2SAT 93
--- NOTE | 2017-02-26 05:41 | DS ---
HISTORY OF PRESENT ILLNESS: This is an 86-year-old male who had come to the transitional care unit for rehab. He had urinary retention in the hospital and was placed on Flomax. He was given a trial of urination after the Beatty catheter was taken out yesterday, but he was unsuccessful. The patient had a pacemaker placed in the hospital for symptomatic bradycardia. He has been ambulating well. He started doing stairs. He is asking about going home. I had discussion with the patient's daughter, Ena, to give an update. The patient feels well and he is going to be discharged home tomorrow with a leg bag and follow up with his urologist. The patient has no complaints of any headaches or dizziness, no nausea, no vomiting. PHYSICAL EXAMINATION: VITAL SIGNS: Temperature is 97.8, pulse is 59, blood pressure is 143/72, and respirations are 14. HEENT: Anicteric sclerae. Moist mucosa. NECK: No JVD, adenopathy, or thyromegaly. CHEST: There is a wound from pacemaker that is clean. There is a pacemaker in place. LUNGS: Good bilateral air entry. No wheezes, rales, or rhonchi. ABDOMEN: Bowel sounds are positive, soft, nontender, and nondistended. No hepatosplenomegaly. LOWER EXTREMITIES: Full range of motion, 2+ pulses. NEUROLOGIC: Alert, awake, and oriented. No facial asymmetry. Tongue is midline. Power 5/5 in the upper extremity and lower extremity. LABORATORY DATA: White count of 7.9, hemoglobin 11.2. Creatinine is 1.1. ASSESSMENT: 1. Thrombocytopenia. 2. Diabetes type 2. 3. Hypertension. 4. Chronic obstructive pulmonary disease. 5. Dyslipidemia. 6. Coronary artery disease. 7. Gait dysfunction. 8. Spinal stenosis. 9. Status post pacemaker placement. PLAN: The patient is going to be on his Eliquis. We will write prescription. I spoke with the patient's daughter. He is going to continue his Norvasc for hypertension. He is going to be on metoprolol as well. The patient is on Flomax for his BPH. He is going to continue with his aspirin. He is on Protonix at this point. He is going to continue with Tylenol at home. He is going to follow up with his primary care doctor in one to two weeks. Condition is stable. Activities, increase as tolerated. Randall Mccracken MD
[2017-02-26] MEDS: Pantoprazole 40 mg EC Tab PO SCH (06:00)
[2017-02-26] MEDS: Insulin Reg-LOW-Coverage SC SCH ×3 (06:32→18:11)
[2017-02-26] MEDS: RANEXA 500MG PO SCH (09:27)
[2017-02-26] MEDS: POLYETHYLENE GLYCOL 3350 17 GM/Dose PACKET PO SCH (09:28)
--- NOTE | 2017-02-26 17:38 | CP.PCM.PN ---
Subjective - Date & Time of Evaluation Date of Evaluation: 02/26/17 Time of Evaluation: 17:35 - Subjective Subjective: Picc line removed,using aseptic precautions. Pressure dressing applied to the site. Objective - Vital Signs/Intake and Output Vital Signs (last 24 hours): Temp Pulse Resp BP Pulse Ox 97.6 F 62 18 138/75 93 L 02/26/17 05:32 02/26/17 09:27 02/26/17 05:32 02/26/17 09:29 02/26/17 05:32 Intake and Output: 02/26/17 02/26/17 06:59 18:59 Intake Total 420 Output Total 1800 Balance -1800 420 - Medications Medications: Current Medications Acetaminophen (Tylenol 325mg Tab) 650 mg PO Q6H PRN PRN Reason: Pain, moderate (4-7) Last Admin: 02/23/17 17:41 Dose: 650 mg Al Hydrox/Mg Hydrox/Simethicone (Maalox Plus 30 Ml) 30 ml PO Q6H PRN PRN Reason: Indigestion / Heartburn Albuterol Sulfate (Albuterol 0.083% Inhal Ros (2.5 Mg/3 Ml) Ud) 2.5 mg IH [id number] PRN PRN Reason: Shortness of Breath Amlodipine Besylate (Norvasc) 10 mg PO DAILY [facility] Last Admin: 02/26/17 09:29 Dose: 10 mg Apixaban (Eliquis) 2.5 mg PO BID [facility] PRN Reason: Protocol Last Admin: 02/26/17 09:27 Dose: 2.5 mg Gabapentin (Neurontin) 100 mg PO BID [facility] PRN Reason: Protocol Last Admin: 02/26/17 09:28 Dose: 100 mg Home Med (Home Med) 1 unit PO Q12 [facility] Last Admin: 02/26/17 09:27 Dose: 1 unit Hydrochlorothiazide (Microzide) 12.5 mg PO MWF [facility] Last Admin: 02/26/17 09:28 Dose: 12.5 mg Insulin Human Regular (Humulin R Low) 0 units SC ACHS [facility] PRN Reason: Protocol Last Admin: 02/26/17 13:58 Dose: 1 units Metoprolol Tartrate (Lopressor) 25 mg PO 0800,1800 [facility] Last Admin: 02/26/17 09:27 Dose: 25 mg Pantoprazole Sodium (Protonix Ec Tab) 40 mg PO 0600 [facility] Last Admin: 02/26/17 06:00 Dose: 40 mg Polyethylene Glycol (Miralax) 17 gm PO DAILY [facility] Last Admin: 02/26/17 09:28 Dose: 17 gm Simethicone (Mylicon Chew Tab) 80 mg PO [facility] PRN PRN Reason: GI distress Tamsulosin HCl (Flomax) 0.4 mg PO 1999 [facility] Last Admin: 02/25/17 21:08 Dose: 0.4 mg - Labs Labs: 02/25/17 06:15 02/25/17 06:15
--- NOTE | 2017-02-26 17:44 | CP.PCM.PN ---
Subjective - Date & Time of Evaluation Date of Evaluation: 02/26/17 Time of Evaluation: 12:25 - Subjective Subjective: Comfortable, no fevers, breathing better. Objective - Vital Signs/Intake and Output Vital Signs (last 24 hours): Temp Pulse Resp BP Pulse Ox 97.6 F 59 L 18 138/75 93 L 02/26/17 05:32 02/26/17 05:32 02/26/17 05:32 02/26/17 05:32 02/26/17 05:32 Intake and Output: 02/26/17 02/26/17 06:59 18:59 Intake Total 420 Output Total 1800 Balance -1800 420 - Medications Medications: Current Medications Acetaminophen (Tylenol 325mg Tab) 650 mg PO Q6H PRN PRN Reason: Pain, moderate (4-7) Last Admin: 02/23/17 17:41 Dose: 650 mg Al Hydrox/Mg Hydrox/Simethicone (Maalox Plus 30 Ml) 30 ml PO Q6H PRN PRN Reason: Indigestion / Heartburn Albuterol Sulfate (Albuterol 0.083% Inhal Ros (2.5 Mg/3 Ml) Ud) 2.5 mg IH [id number] PRN PRN Reason: Shortness of Breath Amlodipine Besylate (Norvasc) 10 mg PO DAILY COUNTS INCLUDE 234 BEDS AT THE [facility] Last Admin: 02/25/17 09:28 Dose: Not Given Apixaban (Eliquis) 2.5 mg PO BID ANAHY PRN Reason: Protocol Last Admin: 02/25/17 17:33 Dose: 2.5 mg Gabapentin (Neurontin) 100 mg PO BID ANAHY PRN Reason: Protocol Last Admin: 02/25/17 17:36 Dose: 100 mg Home Med (Home Med) 1 unit PO Q12 COUNTS INCLUDE 234 BEDS AT THE [facility] Last Admin: 02/25/17 21:08 Dose: 1 unit Hydrochlorothiazide (Microzide) 12.5 mg PO MWF COUNTS INCLUDE 234 BEDS AT THE [facility] Insulin Human Regular (Humulin R Low) 0 units SC ACHS ANAHY PRN Reason: Protocol Last Admin: 02/26/17 06:32 Dose: Not Given Metoprolol Tartrate (Lopressor) 25 mg PO 0800,1800 COUNTS INCLUDE 234 BEDS AT THE [facility] Last Admin: 02/25/17 17:35 Dose: 25 mg Pantoprazole Sodium (Protonix Ec Tab) 40 mg PO 0600 COUNTS INCLUDE 234 BEDS AT THE [facility] Last Admin: 02/26/17 06:00 Dose: 40 mg Polyethylene Glycol (Miralax) 17 gm PO DAILY COUNTS INCLUDE 234 BEDS AT THE [facility] Last Admin: 02/25/17 09:12 Dose: 17 gm Simethicone (Mylicon Chew Tab) 80 mg PO [facility] PRN PRN Reason: GI distress Tamsulosin HCl (Flomax) 0.4 mg PO 1999 COUNTS INCLUDE 234 BEDS AT THE [facility] Last Admin: 02/25/17 21:08 Dose: 0.4 mg - Labs Labs: 02/25/17 06:15 02/25/17 06:15 - Constitutional Appears: Non-toxic, No Acute Distress - Head Exam Head Exam: NORMAL INSPECTION - Respiratory Exam Respiratory Exam: Decreased Breath Sounds - Cardiovascular Exam Cardiovascular Exam: +S1, +S2 - GI/Abdominal Exam GI & Abdominal Exam: Soft. absent: Tenderness Assessment and Plan - Assessment and Plan (Free Text) Plan: Assessment S/P sepsis due to left sided healthcare-associated pneumonia with possible gram positive cocci and/or gram negative bacilli, clinically improved and S/P treatment S/P permanent pacemaker placement CAD S/P CABG HTN atrial fibrillation COPD DM obesity with BMI 30 Plan continue to monitor off antibiotics since he is at risk for nosocomial infections
[2017-02-26 18:15] VITALS: BP 91/59; PULSE 59
--- NOTE | 2017-02-27 01:16 | PN ---
DATE: 02/26/2017 REASON FOR CONSULTATION: Follow up continuity of care and transitional care status post permanent pacemaker, urosepsis. SUBJECTIVE: The patient denies any chest pain, shortness, or breath, or any palpitation. Feels better. Family is at the bedside. PHYSICAL EXAMINATION: As follows: VITAL SIGNS: Temperature afebrile, heart rate 60, blood pressure 138/75. HEENT: PERRLA. Extraocular muscles are intact. NECK: Supple. No carotid bruit. No thyromegaly. CHEST: Clear to auscultation. HEART: S1 and S2 regular. Pacemaker site looks okay. ABDOMEN: Soft. EXTREMITIES: Clubbing and cyanosis negative. LABORATORY DATA: Blood workup as follows, WBC as of yesterday is 7.9, hemoglobin 11.8, hematocrit 33.5, platelet count 135. Chemistry shows sodium 130, potassium 4.9, chloride 103, carbon dioxide 27, anion gap of 13, BUN 29, and creatinine 1.1. IMPRESSION: An 86-year-old male with a past medical history significant for coronary artery disease status post coronary artery bypass graft in 2004, status post cardiac catheterization in 2006, [place] triple-vessel disease, patent left internal mammary artery to anterior descending artery, patent saphenous graft to the diagonal 1, patent saphenous graft to obtuse marginal, patent saphenous graft to the ramus and posterior descending artery, sequential, admitted at this time with new onset atrial flutter/fibrillation with a significant bradycardia, status post permanent pacemaker. Hospital course is complicated by urinary tract infection. The patient has been treated with IV antibiotics, now the patient is in transitional care for the continuity of care. RECOMMENDATION: Continue Eliquis. Resume back hydrochlorothiazide Wednesday, Wednesday, and Wednesday. The patient is scheduled for TIFFANY cardioversion on 03/25/2017 at 11:00 a.m. In the interim, continue renal dose adjusted Eliquis 2.5 mg. Continue metoprolol and continue amlodipine. We will follow with you. Thank you *------* for opportunity in taking care of this patient, Chad Sparks. Harpal Richard MD [facility] # [id number]
== END 2017-02-26 19:41 | disposition home or self-care (01) | DRG 871 ==
LOC: TRCU 13:16
PROVIDERS: ADMIT Internal Medicine Nephrology; ATTEND Internal Medicine Nephrology
PROC: F07Z9FZ Gait Training/Functional Ambulation Treatment using Assistive, Adaptive, Supportive or Protective Equipment (ICD-10-PCS; principal; 2017-02-21)
PROC: F07M6ZZ Therapeutic Exercise Treatment of Musculoskeletal System - Whole Body (ICD-10-PCS; 2017-02-21)
PROC: F08Z1ZZ Dressing Techniques Treatment (ICD-10-PCS; 2017-02-22)
PROC: F08Z1ZZ Dressing Techniques Treatment (ICD-10-PCS; 2017-02-22)
PROC: F08Z2ZZ Grooming/Personal Hygiene Treatment (ICD-10-PCS; 2017-02-22)
DX: A41.9 Sepsis, unspecified organism (principal); J18.9 Pneumonia, unspecified organism; E11.22 Type 2 diabetes mellitus with diabetic chronic kidney disease; D69.6 Thrombocytopenia, unspecified; J44.0 Chronic obstructive pulmonary disease with (acute) lower respiratory infection; I95.9 Hypotension, unspecified; I48.92 Unspecified atrial flutter; N39.0 Urinary tract infection, site not specified; I12.9 Hypertensive chronic kidney disease with stage 1 through stage 4 chronic kidney disease, or unspecified chronic kidney disease; N18.9 Chronic kidney disease, unspecified; B96.20 Unspecified Escherichia coli [E. coli] as the cause of diseases classified elsewhere; E66.9 Obesity, unspecified; Z68.35 Body mass index [BMI] 35.0-35.9, adult; E78.5 Hyperlipidemia, unspecified; I25.10 Atherosclerotic heart disease of native coronary artery without angina pectoris; I48.91 Unspecified atrial fibrillation; Y95 Nosocomial condition; M48.00 Spinal stenosis, site unspecified; N40.0 Benign prostatic hyperplasia without lower urinary tract symptoms; Z87.891 Personal history of nicotine dependence; Z95.0 Presence of cardiac pacemaker; Z95.1 Presence of aortocoronary bypass graft; Z95.5 Presence of coronary angioplasty implant and graft; Z88.8 Allergy status to other drugs, medicaments and biological substances; M62.838 Other muscle spasm; I08.3 Combined rheumatic disorders of mitral, aortic and tricuspid valves; R26.9 Unspecified abnormalities of gait and mobility

== ENCOUNTER 2017-03-25 10:12 | Day surgery (SDC) | payer MEDICARE, BC ==
[2017-03-16 10:43] VITALS: BMI 28.4
[2017-03-25] MEDS ORDERED: Midazolam 2 MG/2 ML VIAL ONE (12:53)
[2017-03-25] MEDS ORDERED: Naloxone 0.4 mg/ml Inj (Adult) ONE (12:54)
[2017-03-25] MEDS ORDERED: Flumazenil 0.1 mg/ml Inj (5ml) IVP ONE ×2 (12:54→13:35)
[2017-03-25] MEDS ORDERED: Benzocaine/Butamben/Tetracai 14-2-2% TOP Spray TOP ONE (13:02)
[2017-03-25] MEDS ORDERED: Midazolam 2 MG/2 ML VIAL IV ONE ×3 (13:17→13:29)
[2017-03-25] MEDS ORDERED: Naloxone 0.4 mg/ml Inj (Adult) IVP ONE (13:35)
[2017-03-25] MEDS ORDERED: Sodium Chloride 0.9% 1,000 ML IV SCH (13:45)
[2017-03-25] MEDS ORDERED: Albuterol HFA 90 mcg/actuation (8 g) INH PRN (13:48)
[2017-03-25 15:02] VITALS: BP 119/71; PULSE 75; RESP 18; TEMP 97.7; O2SAT 96
--- NOTE | 2017-03-25 15:57 | CARD ---
APPROVED REPORT EXAM: Transesophageal echocardiogram with color flow Doppler and Synchronized Cardioversion. INDICATION Atrial Fibrillation R/O THROMBUS Mitral Valve E/A ratio0.0 TDI E/Lateral E'0.0E/Medial E'0.0 Tricuspid Valve TR Peak [id number] Peak Gr.29mmHg [id number] Reason For Test : TIFFANY and cardioversion PROCEDURE After obtaining informed consent, patient underwent transesophageal echo in the Echo Lab. Type of Sedation : Conscious Sedation Sedation was administered by Dr. ley. Sedation was achieved with Versed and , Fentanyl 3mg and 100 mcg intravenously. Echo enhancement indication: R/O Septal defect. Echo enhancement agent administered: Agitated Saline The TIFFANY was performed without complications. Synchronized Cardioversion attempted: Successful Synchronized Cardioversion acheived with 200 Joules after first attempt(s). Rhythm following Synchronized Cardioversion: Normal Sinus Rhythm V paced rythm Throughout the procedure, the blood pressure, pulse oximetry, cardiac rhythm, and rate were monitored. The patient tolerated the procedure without adverse effects. Recovery from conscious sedation was uneventful and vital signs were stable. LEFT VENTRICLE The left ventricle is normal size. There is mild concentric left ventricular hypertrophy. Left ventricle systolic function is mildly impaired.EF-40-45%( a fib) There is global hypokinesis of the left ventricle. A fib No left ventricle thrombus noted on this study. There is no ventricular septal defect visualized. There is no left ventricular aneurysm. There is no mass noted in the left ventricle. RIGHT VENTRICLE The right ventricle is mildly to moderately dilated. There is normal right ventricular wall thickness. Systolic function of RV is mildly reduced. ATRIA The left atrium is mildly dilated. The right atrium is mildly dilated. The interatrial septum is intact with no evidence for an atrial septal defect. AORTIC VALVE The aortic valve is mildly thickened. The aortic valve is tri-cuspid. There is mild to moderate aortic regurgitation. There is no aortic valvular stenosis. There is no aortic valvular vegetation. MITRAL VALVE The mitral valve leaflets are thickened. There is no evidence of mitral valve prolapse. There is no mitral valve stenosis. Mitral regurgitation is trace to mild. TRICUSPID VALVE The tricuspid valve leaflets display thickening. There is mild to moderate tricuspid regurgitation.RVSP-39 mmof hg. There is no tricuspid valve prolapse or vegetation. There is no tricuspid valve stenosis. PULMONIC VALVE The pulmonary valve is normal in structure. There is trace pulmonic valvular regurgitation. There is no pulmonic valvular stenosis. GREAT VESSELS The aortic root is normal in size. The ascending aorta is normal in size. The pulmonary artery is normal. The IVC is normal in size and collapses >50% with inspiration. PERICARDIAL EFFUSION There is no pericardial effusion. There is no pleural effusion. <Conclusion> Left ventricle systolic function is mildly impaired.EF-40-45%( a fib). Dilated RA/RV/LA. Ppm lead noted in RA/.RV There is mild to moderate aortic regurgitation. Mitral regurgitation is trace to mild. There is mild to moderate tricuspid regurgitation.RVSP-39 mmof hg. The IVC is normal in size and collapses >50% with inspiration. There is no pleural effusion. Mild plaque in descending aorta. Velocity in JOHN=0.4m/s Intact intra atrial septum by colrr flow and bubble study. No cotra indication to cardio version, 200 Joues Synchronized cV done ,pt converted to NSR. CC; Dr. Shelley.
--- NOTE | 2017-03-25 16:01 | CARD ---
APPROVED REPORT EKG Measurement Heart [id number] [id number] <Conclusion> S/p TIFFANY cardioversion NSR with V paced rythm.
[2017-03-25] MEDS ORDERED: Pantoprazole 40 mg EC Tab PO SCH (16:30)
[2017-03-25] MEDS ORDERED: OMEPRAZOLE 40 MG PO SCH (18:00)
[2017-03-25] MEDS ORDERED: Non Formulary Medication (Ranolazine [Ranexa] 500 MG) PO SCH (18:00)
[2017-03-25] MEDS ORDERED: Albuterol 0.083% Inhal Sol (2.5 mg/3 mL) UD IH PRN (21:26)
[2017-03-26] MEDS ORDERED: Tiotropium 18 mcg Cap For Inhalation INH SCH (10:00)
== END 2017-03-25 15:50 | disposition home or self-care (01) ==
LOC: TEE 10:12
PROVIDERS: ATTEND Internal Medicine Cardiovascular Disease
DX: I48.91 Unspecified atrial fibrillation (principal); I34.0 Nonrheumatic mitral (valve) insufficiency; I25.10 Atherosclerotic heart disease of native coronary artery without angina pectoris; Z95.1 Presence of aortocoronary bypass graft; I25.2 Old myocardial infarction; J45.909 Unspecified asthma, uncomplicated; E78.00 Pure hypercholesterolemia, unspecified
CPT/HCPCS: 92960; 93005; 93312; J2250; J2310; J3010; J7040 ×2

== ENCOUNTER 2018-08-24 13:31 | Outpatient (CLI) | payer MEDICARE, BC | END 2018-08-24 13:32 | disposition home or self-care (01) | LOC: CARDIO 13:31 ==

== ENCOUNTER 2018-10-15 11:49 | Outpatient (CLI) | payer MEDICARE, BC | END 2018-10-15 11:50 | disposition home or self-care (01) | LOC: RAD 11:49 ==

== ENCOUNTER 2018-12-05 12:39 | Outpatient (CLI) | payer MEDICARE, BC | END 2018-12-05 12:40 | disposition home or self-care (01) | LOC: RAD 12:39 ==